=== PATIENT | female | born 1995 | race Two or more races ===

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

== ENCOUNTER 2017-05-17 19:58 | Emergency (ER) | payer OTHER ==
[2017-05-17] MEDS: BENZONATATE 100 MG CAP PO (20:45)
[2017-05-17] MEDS: NAPROXEN 250 MG TAB PO (20:45)
[2017-05-17] MEDS: ALBUTEROL SULFATE 2.5 MG/0.5 ML INH NEB SOLN NEB (21:12)
[2017-05-17 21:22] LABS: INFLUENZA A AMPLIFICATION POSITIVE (NEGATIVE); INFLUENZA B AMPLIFICATION NEGATIVE (NEGATIVE); RSV AMPLIFICATION NEGATIVE (NEGATIVE)
[2017-05-17] MEDS: MAGIC MOUTHWASH SUSPENSION BTL SS (21:28)
[2017-05-17] MEDS: dexameTHASONE 4 MG/ML 1ML VIAL (J1100) PO (22:00)
[2017-05-17] MEDS: OSELTAMIVIR PHOSPHATE 75 MG CAP (TAMIFLU) PO (22:00)
== END 2017-05-17 22:04 | disposition home or self-care (01) ==
LOC: M ED 19:58
DX: J09.X2 Influenza due to identified novel influenza A virus with other respiratory manifestations (principal)
CPT/HCPCS: J1100

== ENCOUNTER 2018-02-10 03:20 | Emergency (ER) | payer OTHER ==
[2018-02-10] MEDS: LACTULOSE 20 GM/30 ML SYRUP UD PO (04:22)
[2018-02-10 04:26] LABS: BASO % 0.2 % (0.0-1.0); EOS # 0.1 10^3/uL (0.0-0.50); EOS % 0.6 % (0.0-3.0); HEMATOCRIT 33.7 % (36.0-47.0); HEMOGLOBIN 10.9 g/dl (12.0-15.5); IMMATURE GRANULOCYTE % 0.2 % (0-3.0); LYMPH # 3.6 10^3/uL (1.5-6.5); LYMPH % 37.5 % (24.0-44.0); MEAN CORPUSCULAR HEMOGLOBIN 28.3 pg (27.0-33.0); MEAN CORPUSCULAR HGB CONC 32.3 g/dl (32.0-36.5); MEAN CORPUSCULAR VOLUME 87.5 fl (80.0-96.0); MONO # 0.7 10^3/uL (0.0-0.8); MONO % 6.9 % (0.0-5.0); NEUTROPHILS # 5.3 10^3/uL (1.8-7.7); NEUTROPHILS % 54.6 % (36.0-66.0); PLATELET COUNT, AUTOMATED 361 10^3/uL (150-450); RED BLOOD COUNT 3.85 10^6/uL (4.00-5.40); RED CELL DISTRIBUTION WIDTH 11.9 % (11.5-14.5); WHITE BLOOD COUNT 9.7 10^3/uL (4.0-10.0)
[2018-02-10] MEDS: GASTROGRAFIN SOLUTION 30ML PO ×2 (04:32→04:38)
[2018-02-10 04:49] LABS: CONTROL LINE HCG INT CTR LINE PRESENT; HCG, SERUM QUALITATIVE NEGATIVE (NEGATIVE)
[2018-02-10 04:51] LABS: ALBUMIN 3.9 GM/DL (3.2-5.2); ALBUMIN/GLOBULIN RATIO 1.11 (1.00-1.93); ALKALINE PHOSPHATASE 58 U/L (45-117); ALT/SGPT 18 U/L (12-78); ANION GAP 7 MEQ/L (8-16); AST/SGOT 11 U/L (7-37); BILIRUBIN,DIRECT < 0.1 MG/DL (0.0-0.2); BILIRUBIN,TOTAL 0.2 MG/DL (0.2-1.0); BLOOD UREA NITROGEN 12 MG/DL (7-18); CALCIUM LEVEL 8.7 MG/DL (8.5-10.1); CARBON DIOXIDE LEVEL 25 MEQ/L (21-32); CHLORIDE LEVEL 105 MEQ/L (98-107); CREATININE FOR GFR 0.84 MG/DL (0.55-1.30); GLUCOSE, FASTING 95 MG/DL (70-100); LIPASE 195 U/L (73-393); POTASSIUM SERUM 3.9 MEQ/L (3.5-5.1); SODIUM LEVEL 137 MEQ/L (136-145); TOTAL PROTEIN 7.4 GM/DL (6.4-8.2)
[2018-02-10] MEDS ORDERED: ISOVUE-370 76% 100ML VIAL (Q9967) As Ordered (05:40)
== END 2018-02-10 06:40 | disposition home or self-care (01) ==
LOC: M ED 03:20
DX: K59.00 Constipation, unspecified (principal)
CPT/HCPCS: Q9963

== ENCOUNTER 2018-07-14 02:38 | Emergency (ER) | payer OTHER ==
[~2018-07-14] VITALS: Ht 154.9 cm; Wt 58.5 kg
[~2018-07-14 02:38] MED LIST: MAGICMW MT; OSEL75CA PO; PROAAER10 INH; TESS100C PO
[2018-07-14 03:01] LABS: URINE PREG TEST NEGATIVE (NEGATIVE)
[2018-07-14 03:39] LABS: BASO % 0.3 % (0.0-1.0); EOS # 0.1 10^3/uL (0.0-0.50); EOS % 1.2 % (0.0-3.0); HEMATOCRIT 36.1 % (36.0-47.0); HEMOGLOBIN 11.4 g/dl (12.0-15.5); LYMPH # 4.1 10^3/uL (1.5-6.5); LYMPH % 43.6 % (24.0-44.0); MEAN CORPUSCULAR HEMOGLOBIN 28.1 pg (27.0-33.0); MEAN CORPUSCULAR HGB CONC 31.6 g/dl (32.0-36.5); MEAN CORPUSCULAR VOLUME 89.1 fl (80.0-96.0); MONO # 0.5 10^3/uL (0.0-0.8); MONO % 5.7 % (0.0-5.0); NEUTROPHILS # 4.6 10^3/uL (1.8-7.7); PLATELET COUNT, AUTOMATED 426 10^3/uL (150-450); RED BLOOD COUNT 4.05 10^6/uL (4.00-5.40); WHITE BLOOD COUNT 9.5 10^3/uL (4.0-10.0)
[2018-07-14 04:00] LABS: ALBUMIN 3.9 GM/DL (3.2-5.2); ALT/SGPT 15 U/L (12-78); BILIRUBIN,DIRECT < 0.1 MG/DL (0.0-0.2); BILIRUBIN,TOTAL 0.2 MG/DL (0.2-1.0); BLOOD UREA NITROGEN 10 MG/DL (7-18); CALCIUM LEVEL 8.6 MG/DL (8.5-10.1); CARBON DIOXIDE LEVEL 25 MEQ/L (21-32); CHLORIDE LEVEL 106 MEQ/L (98-107); CREATININE FOR GFR 0.77 MG/DL (0.55-1.30); GLUCOSE, FASTING 95 MG/DL (70-100); LIPASE 218 U/L (73-393); POTASSIUM SERUM 3.8 MEQ/L (3.5-5.1); SODIUM LEVEL 139 MEQ/L (136-145)
--- NOTE | 2018-07-14 05:10 | REPVR ---
EXAM: CT Abdomen and Pelvis Without Contrast EXAM DATE/TIME: 07/14/2018 3:46 AM CLINICAL HISTORY: 22 years old, female; Abdominal pain; Localized; Right lower quadrant (rlq); Additional info: Rlq pain TECHNIQUE: Imaging protocol: Axial computed tomography images of the abdomen and pelvis without contrast. Coronal and sagittal reformatted images were created and reviewed. Radiation optimization: All CT scans at this facility use at least one of these dose optimization techniques: automated exposure control; mA and/or kV adjustment per patient size (includes targeted exams where dose is matched to clinical indication); or iterative reconstruction. COMPARISON: CT ABD/PEL W/IV ORAL CONTRAS 02/10/2018 5:39 AM FINDINGS: ABDOMEN: Liver: Normal. No mass. Gallbladder and bile ducts: The gallbladder is contracted with no stones. Pancreas: Normal. No ductal dilation. Spleen: Normal. No splenomegaly. Adrenals: Normal. No mass. Kidneys and ureters: Normal. No hydronephrosis. Stomach and bowel: Normal. No obstruction. No mucosal thickening. Appendix: A normal appendix is seen. PELVIS: Bladder: Unremarkable as visualized. Reproductive: Unremarkable as visualized. ABDOMEN and PELVIS: Intraperitoneal space: Minimal fluid in the cul-de-sac which with a Hounsfield measurement of 13 which is upper normal for physiologic amount. Bones/joints: No acute fracture. No dislocation. Soft tissues: Unremarkable. Vasculature: Normal. No abdominal aortic aneurysm. Lymph nodes: Normal. No enlarged lymph nodes. IMPRESSION: 1. Minimal fluid in the cul-de-sac which is upper normal for physiologic amount. 2. Otherwise negative CT abdomen/pelvis. A normal appendix is seen. Electronically signed by: Mello Wick On 07/14/2018 05:09:42 AM
[2018-07-14 05:11] LABS: CHLAMYDIA DNA AMPLIFICATION NEGATIVE (NEGATIVE); GC DNA AMPLIFICATION NEGATIVE (NEGATIVE)
[2018-07-14 05:58] VITALS: BP 125/80
== END 2018-07-14 06:01 | disposition home or self-care (01) ==
LOC: M ED 02:38
DX: R10.9 Unspecified abdominal pain (principal)

== ENCOUNTER 2018-10-26 14:00 | Emergency (ER) | payer OTHER ==
[~2018-10-26] VITALS: Ht 154.9 cm; Wt 58.8 kg
[2018-10-26 14:01] VITALS: BP 119/76
[2018-10-26] MEDS ORDERED: SUMA100T2 (14:09)
--- NOTE | 2018-10-26 15:18 | REP ---
CHEST, TWO VIEWS: There is no evidence of acute infiltrate. No pleural effusion is seen. The heart is normal in size. The mediastinal silhouette is unremarkable. The visualized osseous structures are intact. IMPRESSION: No acute pulmonary disease. Electronically Signed by Angel Diego MD 10/27/2018 12:11 A
== END 2018-10-26 17:18 | disposition home or self-care (01) ==
LOC: M ED 14:00
DX: J70.5 Respiratory conditions due to smoke inhalation (principal); Z79.899 Other long term (current) drug therapy

== ENCOUNTER 2020-10-06 19:40 | Emergency (ER) | payer OTHER ==
[~2020-10-06] VITALS: Ht 154.9 cm; Wt 58.9 kg
[~2020-10-06 19:40] MED LIST changes: +SUMA100T2
[2020-10-06 20:33] LABS: BASO # 0.1 10^3/uL (0.0-0.2); BASO % 0.5 % (0.0-1.0); EOS # 0.1 10^3/uL (0.0-0.5); EOS % 0.6 % (0.0-3.0); HEMATOCRIT 35.3 % (36.0-47.0); HEMOGLOBIN 11.2 g/dl (12.0-15.5); LYMPH # 3.1 10^3/uL (1.5-5.0); LYMPH % 33.4 % (24.0-44.0); MEAN CORPUSCULAR HEMOGLOBIN 27.8 pg (27.0-33.0); MEAN CORPUSCULAR HGB CONC 31.7 g/dl (32.0-36.5); MEAN CORPUSCULAR VOLUME 87.6 fl (80.0-96.0); MONO # 0.6 10^3/uL (0.0-0.8); MONO % 6.4 % (2.0-8.0); NEUTROPHILS # 5.5 10^3/uL (1.5-8.5); NEUTROPHILS % 58.9 % (36.0-66.0); PLATELET COUNT, AUTOMATED 412 10^3/uL (150-450); RED BLOOD COUNT 4.03 10^6/uL (4.00-5.40); WHITE BLOOD COUNT 9.3 10^3/uL (4.0-10.0)
[2020-10-06] MEDS ORDERED: ACETAMINOPHEN 500 MG TAB PO ONE (21:00)
[2020-10-06 21:03] LABS: BLOOD UREA NITROGEN 12 MG/DL (7-18); CARBON DIOXIDE LEVEL 28 MEQ/L (21-32); CHLORIDE LEVEL 105 MEQ/L (98-107); CREATININE FOR GFR 0.68 MG/DL (0.55-1.30); GLOMERULAR FILTRATION RATE > 60.0 (>60); GLUCOSE, FASTING 99 MG/DL (70-100); HCG, SERUM QUANTITATIVE 539 MIU/ML; POTASSIUM SERUM 4.3 MEQ/L (3.5-5.1); SODIUM LEVEL 138 MEQ/L (136-145)
[2020-10-06 21:54] LABS: APPEARANCE, URINE HAZY (CLEAR); BACTERIA, URINE AUTO NEGATIVE (NEGATIVE); BILIRUBIN, URINE AUTO NEGATIVE (NEGATIVE); BLOOD, URINE BLOOD 1+ (NEGATIVE); COLOR, URINE YELLOW (YELLOW); GLUCOSE, URINE (UA) AUTO NEGATIVE (NEGATIVE); KETONE, URINE AUTO NEGATIVE (NEGATIVE); LEUKOCYTE ESTERASE, URINE AUTO NEGATIVE (NEGATIVE); NITRITE, URINE AUTO NEGATIVE (NEGATIVE); PROTEIN, URINE AUTO NEGATIVE (NEGATIVE); RBC, URINE AUTO 4 /HPF (0-3); SPECIFIC GRAVITY URINE AUTO 1.016 (1.002-1.035); SQUAMOUS EPITHELIAL CELL UR AU 0 /HPF (0-6); UROBILINOGEN, URINE AUTO 0.2 mg/dL (0.0-2.0); WBC, URINE AUTO 0 /HPF (0-3)
--- NOTE | 2020-10-06 22:12 | REPVR ---
PROCEDURE INFORMATION: Exam: US First Trimester, Transabdominal Exam date and time: 10/06/2020 9:35 PM Age: 25 years old Clinical indication: complicated by abdominal or pelvic pain; Right lower quadrant; First trimester; Gestational age or lmp: 09/04/20; ; Patient HX: Addy Pimentel; Additional info: Rlq pain, 5wks preg, R/O ectopic TECHNIQUE: Imaging protocol: Real-time transabdominal obstetrical ultrasound of the maternal pelvis and a first trimester , less than 14 weeks 0 days, with image documentation. COMPARISON: No relevant prior studies available. FINDINGS: Gestation: Not demonstrated Embryonic/ heart rate: Not demonstrated BIOMETRY: Gestational age (AUA): 4 weeks 4 days based on LMP of 09/04/2020 MATERNAL: Uterus: Uterus measures 7.3 x 5.9 x 3.8 cm. Cervix: Unremarkable. Right adnexa: Right ovary measures 2.8 x 1.5 x 1.5 cm. Normal flow. Left adnexa: Left ovary measures 3.4 x 2.6 x 2.5 cm. Normal flow. Corpus luteal cyst measures 2 x 1.7 x 2.1 cm. Intraperitoneal space: Minimal fluid in the cul-de-sac. IMPRESSION: Empty uterus in a patient who is reportedly . Findings may indicate very early IUP prior to visualization of a gestational sac or fetus. Correlation with serial beta-hCG levels and follow ultrasound recommended in order to exclude ectopic verses very early or early failure. Electronically signed by: Ernie Calderon On 10/06/2020 22:12:25 PM
[2020-10-06 23:58] VITALS: BP 129/65
== END 2020-10-07 00:03 | disposition home or self-care (01) ==
LOC: M ED 19:40
DX: O99.891 Other specified diseases and conditions complicating pregnancy (principal); M25.512 Pain in left shoulder; M79.651 Pain in right thigh; Z3A.01 Less than 8 weeks gestation of pregnancy

== ENCOUNTER → 2020-10-09 | Outpatient (CLI) | payer OTHER | LOC: M LAB 12:00 | PROVIDERS: ATTEND Physician Assistant | DX: O99.891 Other specified diseases and conditions complicating pregnancy (principal); R10.9 Unspecified abdominal pain ==

== ENCOUNTER → 2020-10-11 | Outpatient (CLI) | payer OTHER ==
--- NOTE | 2020-10-11 16:12 | REP ---
INDICATION: RT LOWER QUAD ABD PAIN (+) PREG ? ECTOPIC IUG. COMPARISON: 10/06/2020. TECHNIQUE: Multiple ultrasonographic images of the pelvis FINDINGS: The bladder is adequately distended. There is an intrauterine gestational sac in the uterine fundus. There is no identifiable pole at this time. The gestational sac measures 4.9 by 4.2 x 7.0 mm Average mean sac diameter is 5.4 mm. This corresponds to a gestational age of 5 weeks 2 days. There is no subchorionic hematoma. Right ovary: The right ovary measures 2.5 x 1.5 x 1.5 cm and is normal size. There is no dominant mass or cyst. Left ovary: The left ovary measures 4.3 x 2.5 x 3.2 cm and is normal size. There is a complex left ovarian cyst measuring 2.7 x 2.1 x 2.5 cm, likely a corpus luteum. The quantitative hCG on 10/06/2020 was reportedly 539 units. The quantitative hCG on 10/09/2020 was 2237 units. IMPRESSION: Intrauterine gestational sac without pole at this time, as discussed above. Complex 2.7 cm left ovarian cyst, likely a corpus luteum. Follow-up is recommended to confirm these findings. <Electronically signed by Angel Ornelas > 10/11/20 [id number]
== END ==
LOC: M RAD 14:54
PROVIDERS: ATTEND Family Medicine
DX: O26.891 Other specified pregnancy related conditions, first trimester (principal); R10.31 Right lower quadrant pain; N83.202 Unspecified ovarian cyst, left side; Z3A.01 Less than 8 weeks gestation of pregnancy; O34.81 Maternal care for other abnormalities of pelvic organs, first trimester

== ENCOUNTER 2020-10-29 09:28 | Emergency (ER) | payer OTHER ==
[~2020-10-29] VITALS: Ht 154.9 cm; Wt 58.5 kg
[2020-10-29] MEDS ORDERED: MULTTAB20 PO (09:38)
[2020-10-29 10:38] LABS: BASO % 0.4 % (0.0-1.0); EOS % 0.4 % (0.0-3.0); HEMATOCRIT 31.5 % (36.0-47.0); HEMOGLOBIN 10.2 g/dl (12.0-15.5); LYMPH # 2.2 10^3/uL (1.5-5.0); LYMPH % 29.4 % (24.0-44.0); MEAN CORPUSCULAR HGB CONC 32.4 g/dl (32.0-36.5); MEAN CORPUSCULAR VOLUME 86.5 fl (80.0-96.0); MONO # 0.5 10^3/uL (0.0-0.8); MONO % 6.9 % (2.0-8.0); NEUTROPHILS # 4.7 10^3/uL (1.5-8.5); NEUTROPHILS % 62.5 % (36.0-66.0); PLATELET COUNT, AUTOMATED 326 10^3/uL (150-450); RED BLOOD COUNT 3.64 10^6/uL (4.00-5.40); WHITE BLOOD COUNT 7.5 10^3/uL (4.0-10.0)
[2020-10-29 10:44] LABS: APPEARANCE, URINE CLEAR (CLEAR); BACTERIA, URINE AUTO NEGATIVE (NEGATIVE); BILIRUBIN, URINE AUTO NEGATIVE (NEGATIVE); BLOOD, URINE BLOOD NEGATIVE (NEGATIVE); COLOR, URINE YELLOW (YELLOW); GLUCOSE, URINE (UA) AUTO NEGATIVE (NEGATIVE); KETONE, URINE AUTO NEGATIVE (NEGATIVE); LEUKOCYTE ESTERASE, URINE AUTO NEGATIVE (NEGATIVE); MUCUS, URINE SMALL (NEGATIVE); NITRITE, URINE AUTO NEGATIVE (NEGATIVE); PROTEIN, URINE AUTO NEGATIVE (NEGATIVE); RBC, URINE AUTO 4 /HPF (0-3); SPECIFIC GRAVITY URINE AUTO 1.016 (1.002-1.035); SQUAMOUS EPITHELIAL CELL UR AU 1 /HPF (0-6); UROBILINOGEN, URINE AUTO 0.2 mg/dL (0.0-2.0); WBC, URINE AUTO 0 /HPF (0-3)
--- NOTE | 2020-10-29 11:01 | REP ---
INDICATION: VAGINAL BLEEDING COMPARISON: None. TECHNIQUE: Transabdominal 1st trimester obstetrical ultrasound with color Doppler evaluation FINDINGS: Single live early intrauterine is appreciated. Gestational sac with yolk sac and pole identified. Novi-rump length of 12 mm corresponds to 7 weeks 3 days gestational age with estimated date of delivery 06/14/2021. heart rate equals 138 beats per minute. No gross abnormalities are identified. Bilateral maternal ovaries demonstrate normal vascularity without torsion and 1.9 cm left corpus luteal cyst. IMPRESSION: Single live early intrauterine at 7 weeks 3 days gestational age. Complete anatomical assessment should be performed and 19-20 weeks. <Electronically signed by Marck Perez > 10/29/20 [id number]
--- NOTE | 2020-10-29 11:03 | REP ---
INDICATION: rlq pain ro appy COMPARISON: None. TECHNIQUE: Grayscale and color evaluation using linear high-frequency and curved array transducers. FINDINGS: Ultrasound examination of the right lower quadrant demonstrates no sonographic supporting evidence for acute appendicitis. Right ovary is normal in appearance and vascularity without torsion and measures 3.1 x 1.4 x 1.9 cm (RI 0.56) No visible fluid or adenopathy. IMPRESSION: Normal examination. No evidence for appendicitis. Normal right ovary. <Electronically signed by Marck Perez > 10/29/20 1954
[2020-10-29] MEDS ORDERED: NS 1,000 ML IV ONE (11:55)
[2020-10-29 11:59] LABS: GC DNA AMPLIFICATION NEGATIVE (NEGATIVE)
[2020-10-29 15:55] VITALS: BP 110/60
--- NOTE | 2020-10-29 21:59 | CR ---
CONSULTATION DATE: 10/29/2020 Time: Approximately 12:00 Noon REASON FOR CONSULTATION: Abdominal pain. HISTORY OF PRESENT ILLNESS: The patient is a very pleasant 25-year-old woman who presented to the Emergency Department for evaluation of some abdominal discomfort. She was recently confirmed to be and is at approximately 8 weeks gestation. She reports that approximately Thursday the 27 of October she noted the onset of some lower abdominal pain. She describes some sharp discomfort intermittently with some soreness and tenderness in the lower abdomen, particularly on the right. She has had some nausea but no vomiting. She denies any fevers or chills. She has been able to eat. She has a history of chronic constipation but reports that she did have a bowel movement on Thursday, the . The pain in the right lower abdomen is somewhat more persistent and annoying but does not prevent her normal activities. She has occasional more lancinating pains higher up in the right mid abdomen that area very intermittent. The patient underwent an evaluation in the Emergency Department with exam, labs, and an ultrasound. Dr. Diego is concerned about the possibility of acute appendicitis and requested my consultation. ALLERGIES: The patient denies any known drug allergies. MEDICATIONS: The patient's current medications include a vitamin with iron and folic acid daily. MEDICAL HISTORY: The patient's medical history is significant only for her current . She reports that she has been once before but suffered a miscarriage at approximately 4 weeks. She denies any active medical problems including heart, lung or endocrine problems. SURGICAL HISTORY: The patient's surgical history is entirely negative. FAMILY HISTORY: The patient's family history is noncontributory. REVIEW OF SYSTEMS: The patient's review of systems reveals no chest pain or palpitations. She has no cough, wheezing or sputum production. She denies any dysuria or hematuria. She has no bone or joint issues. There is no history of DVT or pulmonary embolus. She denies any history of chronic severe headaches, seizures or stroke. SOCIAL HISTORY: The patient is a nonsmoker. She denies any recreational drug use. PHYSICAL EXAMINATION: GENERAL APPEARANCE: A pleasant, young woman lying quietly on the E.R. stretcher. She is alert and oriented. VITAL SIGNS: Her temperature on presentation was 97.8. The most recent vital signs showed a blood pressure of 111/67 with a respiratory rate of 16. The patient is recorded as being 5 feet, one inch tall with a weight of 58 kg. SKIN: Warm and dry. HEENT: Sclerae are anicteric. NECK: Supple without mass or bruit. HEART: Regular rate and rhythm in the 60's to 70's. LUNGS: Clear to auscultation bilaterally. CHEST: She has a number of tattoos of the chest and upper extremities. ABDOMEN: Flat. There is a small scar at the upper edge of the umbilicus from prior piercing. She has bowel sounds present though they are soft. The abdomen is nondistended. There is no tympani to percussion. There is no significant tenderness to percussion. On palpation the abdomen is soft throughout. There is some very mild direct tenderness to palpation in the right lower quadrant, fairly medially. On the initial exam there was also some tenderness noted in the left suprapubic area, but this seemed less pronounced on repeat exam. There is no palpable mass. There is no rebound tenderness. There is no evidence of hernia. EXTREMITIES: Without edema. She has palpable radial and dorsalis pedis pulses bilaterally. LABORATORY STUDIES: CBC which shows a white count of 8, hemoglobin 10, hematocrit 32, and a platelet count of 326,000. Differential count shows 62% neutrophils, 29% lymphocytes, and 7% monocytes. Chemistry profile was not done but she had a quantitative hCG of 63,160. Urinalysis showed no evidence of urinary tract infection. Serology was negative for chlamydia and gonorrhea. IMAGING DATA: She had an obstetrical and pelvic ultrasound obtained. The obstetrical ultrasound was consistent with a single live intrauterine at 7 weeks, 3 days gestation. The pelvic ultrasound was interpreted as showing no sonographic evidence supporting acute appendicitis. The right ovary was normal in appearance. There was no visible fluid or adenopathy. IMPRESSION: The patient is a very pleasant 25-year-old woman who is now approximately 7-8 weeks . She has been having some lower abdominal discomfort. She has also had some nausea which she attributes to the . Today she came in with 2 days of abdominal pain which seems to be more centered in the low right lower quadrant. She does have some mild tenderness in this area, though there is no rebound or guarding. The ultrasound did not clearly identify her appendix though there were no findings of acute inflammation. RECOMMENDATIONS: My overall impression is that it is unlikely that she has acute appendicitis. Her symptoms have remained relatively mild over 48 hours since they began. She has a normal white blood cell count with a normal differential count. I suspect that her discomfort is associated with her , however in order to be absolutely certain that there is no early appendicitis in this patient with an early , I do think that an MRI of the pelvis would be prudent to insure that the appendix is normal. I would favor doing the MRI rather than a CT scan just to avoid the radiation exposure. I discussed this recommendation with Dr. Diego, who will undertake to obtain the MRI to confirm that the patient does not have appendicitis. I advised her that if the MRI shows no evidence of appendicitis that the patient could be discharged home.
== END 2020-10-29 15:56 | disposition home or self-care (01) ==
LOC: M ED 09:28
DX: O26.891 Other specified pregnancy related conditions, first trimester (principal); Z3A.01 Less than 8 weeks gestation of pregnancy; Z87.59 Personal history of other complications of pregnancy, childbirth and the puerperium

== ENCOUNTER → 2020-10-30 | Outpatient (CLI) | payer OTHER ==
[~2020-10-30] MED LIST changes: +MULTTAB20 PO
[2020-10-30 14:38] LABS: ALBUMIN 4.2 GM/DL (3.2-5.2); ALT/SGPT 19 U/L (12-78); BILIRUBIN,TOTAL 0.4 MG/DL (0.2-1.0); BLOOD UREA NITROGEN 9 MG/DL (7-18); CALCIUM LEVEL 9.3 MG/DL (8.5-10.1); CARBON DIOXIDE LEVEL 24 MEQ/L (21-32); CHLORIDE LEVEL 106 MEQ/L (98-107); CREATININE FOR GFR 0.56 MG/DL (0.55-1.30); GLOMERULAR FILTRATION RATE > 60.0 (>60); GLUCOSE, FASTING 84 MG/DL (70-100); POTASSIUM SERUM 4.6 MEQ/L (3.5-5.1); SODIUM LEVEL 136 MEQ/L (136-145); TOTAL PROTEIN 7.9 GM/DL (6.4-8.2)
== END ==
LOC: M PLALAB 11:27
PROVIDERS: ATTEND Family Medicine
DX: L29.9 Pruritus, unspecified (principal)

== ENCOUNTER → 2020-11-08 | Outpatient (CLI) | payer OTHER ==
[~2020-11-08] MED LIST changes: +IBUP80TA PO; +OXYC1TAB23 PO; +PERC5TAB12 PO
[2020-11-08 17:32] LABS: HEMATOCRIT 33.1 % (36.0-47.0); HEMOGLOBIN 10.7 g/dl (12.0-15.5); MEAN CORPUSCULAR HGB CONC 32.3 g/dl (32.0-36.5); MEAN CORPUSCULAR VOLUME 86.6 fl (80.0-96.0); PLATELET COUNT, AUTOMATED 383 10^3/uL (150-450); RED BLOOD COUNT 3.82 10^6/uL (4.00-5.40); WHITE BLOOD COUNT 10.4 10^3/uL (4.0-10.0)
== END ==
LOC: M PLALAB 15:28
PROVIDERS: ATTEND Advanced Practice Midwife
DX: O02.1 Missed abortion (principal)

== ENCOUNTER → 2020-11-19 | Outpatient (CLI) | payer OTHER ==
[~2020-11-19] MED LIST changes: -IBUP80TA PO; -PERC5TAB12 PO
== END ==
LOC: M PLALAB 13:35
PROVIDERS: ATTEND Advanced Practice Midwife
DX: O02.1 Missed abortion (principal)

== ENCOUNTER → 2020-11-26 | Outpatient (CLI) | payer OTHER | LOC: M PLALAB 09:48 | PROVIDERS: ATTEND Advanced Practice Midwife | DX: O02.1 Missed abortion (principal) ==

== ENCOUNTER → 2020-12-03 | Outpatient (CLI) | payer OTHER ==
[2020-12-03 17:17] LABS: HEMOGLOBIN 10.4 g/dl (12.0-15.5); MEAN CORPUSCULAR HEMOGLOBIN 27.8 pg (27.0-33.0); MEAN CORPUSCULAR HGB CONC 31.5 g/dl (32.0-36.5); MEAN CORPUSCULAR VOLUME 88.2 fl (80.0-96.0); PLATELET COUNT, AUTOMATED 409 10^3/uL (150-450); RED BLOOD COUNT 3.74 10^6/uL (4.00-5.40)
== END ==
LOC: M PLALAB 14:46
PROVIDERS: ATTEND Advanced Practice Midwife
DX: O02.1 Missed abortion (principal)

== ENCOUNTER → 2020-12-10 | Outpatient (CLI) | payer OTHER | LOC: M PLALAB 15:22 | PROVIDERS: ATTEND Advanced Practice Midwife | DX: O02.1 Missed abortion (principal) ==

== ENCOUNTER 2020-12-11 19:38 | Emergency (ER) | payer OTHER ==
[~2020-12-11] VITALS: Ht 154.9 cm; Wt 58.1 kg
[2020-12-11 21:54] LABS: APPEARANCE, URINE CLEAR (CLEAR); BACTERIA, URINE AUTO 1+ (NEGATIVE); BILIRUBIN, URINE AUTO NEGATIVE (NEGATIVE); BLOOD, URINE BLOOD 2+ (NEGATIVE); COLOR, URINE YELLOW (YELLOW); GLUCOSE, URINE (UA) AUTO NEGATIVE (NEGATIVE); KETONE, URINE AUTO NEGATIVE (NEGATIVE); LEUKOCYTE ESTERASE, URINE AUTO NEGATIVE (NEGATIVE); MUCUS, URINE MODERATE (NEGATIVE); NITRITE, URINE AUTO NEGATIVE (NEGATIVE); PROTEIN, URINE AUTO NEGATIVE (NEGATIVE); RBC, URINE AUTO 11 /HPF (0-3); SPECIFIC GRAVITY URINE AUTO 1.029 (1.002-1.035); SQUAMOUS EPITHELIAL CELL UR AU 1 /HPF (0-6); WBC, URINE AUTO 0 /HPF (0-3)
[2020-12-12] MEDS ORDERED: NS 1,000 ML IV ONE (06:20)
[2020-12-12 07:04] LABS: BASO % 0.5 % (0.0-1.0); EOS # 0.1 10^3/uL (0.0-0.5); EOS % 1.2 % (0.0-3.0); HEMATOCRIT 30.5 % (36.0-47.0); HEMOGLOBIN 9.6 g/dl (12.0-15.5); LYMPH # 3.4 10^3/uL (1.5-5.0); LYMPH % 51.6 % (24.0-44.0); MEAN CORPUSCULAR HEMOGLOBIN 28.2 pg (27.0-33.0); MEAN CORPUSCULAR HGB CONC 31.5 g/dl (32.0-36.5); MEAN CORPUSCULAR VOLUME 89.4 fl (80.0-96.0); MONO # 0.4 10^3/uL (0.0-0.8); MONO % 6.2 % (2.0-8.0); NEUTROPHILS # 2.7 10^3/uL (1.5-8.5); NEUTROPHILS % 40.3 % (36.0-66.0); PLATELET COUNT, AUTOMATED 317 10^3/uL (150-450); RED BLOOD COUNT 3.41 10^6/uL (4.00-5.40); WHITE BLOOD COUNT 6.6 10^3/uL (4.0-10.0)
[2020-12-12 07:27] LABS: BLOOD UREA NITROGEN 14 MG/DL (7-18); CALCIUM LEVEL 8.5 MG/DL (8.5-10.1); CARBON DIOXIDE LEVEL 25 MEQ/L (21-32); CHLORIDE LEVEL 108 MEQ/L (98-107); CREATININE FOR GFR 0.71 MG/DL (0.55-1.30); GLOMERULAR FILTRATION RATE > 60.0 (>60); GLUCOSE, FASTING 85 MG/DL (70-100); POTASSIUM SERUM 3.7 MEQ/L (3.5-5.1); SODIUM LEVEL 139 MEQ/L (136-145)
--- NOTE | 2020-12-12 08:27 | REPVR ---
PROCEDURE INFORMATION: Exam: US Pelvis Complete, Transabdominal and US Pelvis, Transvaginal and US Duplex Artery and Vein, Ovaries, Complete Exam date and time: 12/12/2020 6:51 AM Age: 25 years old Clinical indication: Lmp or gestational age (in weeks): Demise; Other: Cramping, continued bleeding; Additional info: demise, cont bleeding R/O rpoc TECHNIQUE: Imaging protocol: Real-time transabdominal and transvaginal pelvic ultrasound (complete) with image documentation. Transvaginal imaging was used for better evaluation of the endometrium, adnexa, and/or cervix. Real-time duplex ultrasound scan of the arterial and venous flow of the ovaries with B-mode, color Doppler flow and spectral waveform analysis. COMPARISON: 1ST TRIMESTER US 10/06/2020 9:18 PM FINDINGS: Uterus/cervix: Uterus measures 8.4 x 4 x 5.6 cm. Endometrial stripe is 1 cm in thickness with a 2.1 x 1.1 cm echogenic vascular focus along the uterine body segment concerning for retained products of conception. Right adnexa: Right ovary measures 4.2 x 3.4 x 3.5 cm. Normal waveforms. There is a simple right ovarian cyst measuring 2.7 x 2.3 x 2.3 cm. Left adnexa: Left ovary measures 2.7 x 2.7 x 1.7 cm. Normal waveforms. Intraperitoneal space: No intraperitoneal fluid. Urinary bladder: Normal. IMPRESSION: Findings concerning for retained products of conception as discussed above. No evidence of ovarian torsion. Electronically signed by: Timmy Fonseca On 12/12/2020 08:27:29 AM
[2020-12-12 08:31] LABS: HCG, SERUM QUANTITATIVE 1553 MIU/ML
[2020-12-12] MEDS ORDERED: KETOROLAC 30 MG/ML 1ML VIAL IV ONE (08:50)
[2020-12-12] MEDS ORDERED: PERC5TAB12 PO (09:15)
[2020-12-12] MEDS ORDERED: IBUP80TA PO (09:15)
[2020-12-12 09:40] VITALS: BP 101/61
== END 2020-12-12 09:43 | disposition home or self-care (01) ==
LOC: M ED 19:38
DX: O03.4 Incomplete spontaneous abortion without complication (principal); O36.4XX0 Maternal care for intrauterine death, not applicable or unspecified
CPT/HCPCS: 76801; 76817; 80048; 81001; 84702; 85025; 93976; 96361; 96374; 99284; J1885

== ENCOUNTER → 2020-12-19 | Outpatient (CLI) | payer OTHER ==
[~2020-12-19] MED LIST changes: +IBUP80TA PO; +PERC5TAB12 PO
== END ==
LOC: M PLALAB 14:14
PROVIDERS: ATTEND Advanced Practice Midwife
DX: O02.1 Missed abortion (principal)

== ENCOUNTER → 2020-12-25 | Outpatient (CLI) | payer OTHER | LOC: M PLALAB 12:25 | PROVIDERS: ATTEND Advanced Practice Midwife | DX: O02.1 Missed abortion (principal) ==

== ENCOUNTER 2020-12-31 08:25 | Emergency (ER) | payer OTHER ==
[~2020-12-31] VITALS: Ht 154.9 cm; Wt 57.5 kg
--- OUTSIDE RECORDS SUMMARY | 2020-12-31 08:32 | CCD ---
Author Author [facility] Organization [facility] Address Unknown Phone Unavailable Care Team Providers Care Steffen House Supervisor Name Role Phone Live Ignacio Unavailable PROBLEMS Type Condition ICD9-CM Code MCM35-GE Code Onset Dates Condition S tatus W/U Status Risk SNOMED Code Notes Problem affected by previo us bariatric surgery, currently in second trimester O99.842 Active confirmed 822092658525165 Problem Constipation, unspecified constipation type K59.00 Active confirmed 97516597 Problem Migraine without aura and without status migrain osus, not intractable G43.009 Active confirmed 568538097 Problem Infertility, female N97.9 Active confirmed 9126892 Problem Slow transit constipation K59.01 Active confirmed 75907583 Problem Supervision of other normal Z34.80 Ac tive confirm [id number] ALLERGIES No Known Allergies ENCOUNTERS from 1997 to 2020-12-24 Encounter Location Date Provider Diagnosis [facility] [address] [facility] [phone] [place] [address] Nov, Live Ignacio Incomplete O03.4 IMMUNIZATIONS No Information SOCIAL HISTORY Tobacco Use: Social History Observation Description Date Details (start date - stop date) Never Smoker Sex Assigned At : Social History Observation Description Sex Assigned At Unknown Education: Question Answer Notes Level of Education: GED Audit Question Answer Notes Total Score: 0 Interpretation: Alcohol Education Language: Question Answer Notes Languages spoken: Wolof Hinduism: Question Answer Notes Hinduism 33 None Domestic Violence: Question Answer Notes Status: Drug and Alcohol Question Answer Notes Total Score: 0 Interpretation: No problems reported Alcohol Screening: Question Answer Notes Did you have a drink containing alcohol in the past year? No Points 0 Interpretation Negative Tobacco Use: Question Answer Notes Are you a: never smoker REASON FOR REFERRAL No Information VITAL SIGNS Weight 129.8 lbs Nov, Height 61 in Nov, BMI 24.52 kg/m2 Nov, Blood pressure systolic 108 mm Hg Nov, Blood pressure diastolic 70 mm Hg Nov, MEDICATIONS Medication SIG (Take, Route, Frequency, Duration) Notes Start Da te End Date Status Enema 7-19 GM/118ML as directed Rectal before bedtime for 7 day( s) Sep, Not-Taking Percocet 5-325 MG 1 tablet as needed for pain that is 5 out of 10 Orally every 4 hours Max daily dose is 4 Oct, Not-Taking miSOPROStol 200 MCG _insert all 4 tablets vaginally at one time Oct, Not-Taking 19 - 1 tablet Orally Once a day for 30 day(s) Active Bisacodyl 5 MG 2tablet as needed Orally bid for 30 day(s) Sep, Not-Taking PROCEDURES from 1997 to 2020-12-24 Procedure Date Ordered Result Body Site Medication: 2% Lidocaine intradermal 2020-12-12 N/A RESULTS No Results REASON FOR VISIT discuss D&C MEDICAL (GENERAL) HISTORY Type Description Date Medical History Migraines without aura Medical History constipation Surgical History No know Surgical history Goals Section No Information Health Concerns No Information MEDICAL EQUIPMENT No Information MENTAL STATUS No Information FUNCTIONAL STATUS No Information ASSESSMENTS Encounter Date Diagnosis Assessment Notes Treatment Notes Treatm ent Clinical Notes Nov, Incomplete (ICD-10 - O03.4) PLAN OF TREATMENT No Information Insurance Providers Payer Name Payer Address Payer Phone Insured Name Patient Relati onship to Insured Coverage Start Date Coverage End Date [employer] DEPT [address] [place] [phone] [place] self
--- OUTSIDE RECORDS SUMMARY | 2020-12-31 08:32 | CCD ---
Author Author [facility] Organization [facility] Address Unknown Phone Unavailable Care Team Providers Care Radiologic Technology Teacher Name Role Phone Jareth Sunshine Unavailable PROBLEMS Type Condition ICD9-CM Code GMO49-HZ Code Onset Dates Condition S tatus W/U Status Risk SNOMED Code Notes Problem affected by previo us bariatric surgery, currently in second trimester O99.842 Active confirmed [id number] Problem Constipation, unspecified constipation type K59.00 Active confirmed 93058724 Problem Migraine without aura and without status migrain osus, not intractable G43.009 Active confirmed 309299637 Problem Infertility, female N97.9 Active confirmed 0696702 Problem Slow transit constipation K59.01 Active confirmed 37056950 Problem Supervision of other normal Z34.80 Ac tive confirm [id number] ALLERGIES No Known Allergies ENCOUNTERS from 1997 to 2020-11-28 Encounter Location Date Provider Diagnosis [facility] [facility] [phone] [place] [address] Oct, Sunshine [place] IMMUNIZATIONS No Information SOCIAL HISTORY Tobacco Use: Social History Observation Description Date Details (start date - stop date) Never Smoker Sex Assigned At : Social History Observation Description Sex Assigned At Unknown Education: Question Answer Notes Level of Education: GED Audit Question Answer Notes Total Score: 0 Interpretation: Alcohol Education Language: Question Answer Notes Languages spoken: Portuguese Sikhism: Question Answer Notes Sikhism 33 None Domestic Violence: Question Answer Notes Status: Sexual Hx: Question Answer Notes Had sex in the last 12 months (vaginal, oral, or anal)? Yes LMP: 04/03/2017 Have you ever had an STD? Yes Prevention Strategies discussed: Other with Men only Use protection? Yes Other? No Herpes? No Syphilis? No GC? Yes Chlamydia? No How often? All of the time Drug and Alcohol Question Answer Notes Total Score: 0 Interpretation: No problems reported Alcohol Screening: Question Answer Notes Did you have a drink containing alcohol in the past year? No Points 0 Interpretation Negative Tobacco Use: Question Answer Notes Are you a: never smoker REASON FOR REFERRAL No Information VITAL SIGNS No information MEDICATIONS Medication SIG (Take, Route, Frequency, Duration) Notes Start Da te End Date Status Enema 7-19 GM/118ML as directed Rectal before bedtime for 7 day( s) Sep, Not-Taking miSOPROStol 200 MCG _insert all 4 tablets vaginally at one time Oct, Not-Taking 19 - 1 tablet Orally Once a day for 30 day(s) Active Bisacodyl 5 MG 2tablet as needed Orally bid for 30 day(s) Sep, Not-Taking Percocet 5-325 MG 1 tablet as needed for pain that is 5 out of 10 Orally every 4 hours Max daily dose is 4 Oct, Not-Taking PROCEDURES No Information RESULTS No Results REASON FOR VISIT f/u miscarriage MEDICAL (GENERAL) HISTORY Type Description Date Medical History Migraines without aura Medical History constipation Surgical History No know Surgical history Goals Section No Information Health Concerns No Information MEDICAL EQUIPMENT No Information MENTAL STATUS No Information FUNCTIONAL STATUS No Information ASSESSMENTS No Information PLAN OF TREATMENT No Information Insurance Providers Payer Name Payer Address Payer Phone Insured Name Patient Relati onship to Insured Coverage Start Date Coverage End Date [facility] [employer] DEPT [address] [place] [phone] [place] self
--- OUTSIDE RECORDS SUMMARY | 2020-12-31 08:32 | CCD ---
Author Author [facility] Organization [facility] Address Unknown Phone Unavailable Care Team Providers Care Cigarette Tester Name Role Phone Sadie mAin Unavailable PROBLEMS Type Condition ICD9-CM Code [id number] Code Onset Dates Condition S tatus W/U Status Risk SNOMED Code Notes Problem affected by previo us bariatric surgery, currently in second trimester O99.842 Active confirmed 294674255058867 Problem Constipation, unspecified constipation type K59.00 Active confirmed 43022059 Problem Migraine without aura and without status migrain osus, not intractable G43.009 Active confirmed 334126184 Problem Infertility, female N97.9 Active confirmed 0522592 Problem Slow transit constipation K59.01 Active confirmed 61028732 Problem Supervision of other normal Z34.80 Ac tive confirm 865944675 ALLERGIES No Known Allergies ENCOUNTERS from 1997 to 2020-12-06 Encounter Location Date Provider Diagnosis [facility] [address] [facility] [phone] [place] [address] Nov, Sadie Brennan IMMUNIZATIONS No Information SOCIAL HISTORY Tobacco Use: Social History Observation Description Date Details (start date - stop date) Never Smoker Sex Assigned At : Social History Observation Description Sex Assigned At Unknown Education: Question Answer Notes Level of Education: GED Audit Question Answer Notes Total Score: 0 Interpretation: Alcohol Education Language: Question Answer Notes Languages spoken: French Caodaism: Question Answer Notes Caodaism 33 None Domestic Violence: Question Answer Notes [...] Information RESULTS No Results REASON FOR VISIT Re:response MEDICAL (GENERAL) HISTORY Type Description Date Medical [...] Insured Coverage Start Date Coverage End Date [facility] [employer] CLAIM[employer] DEPT [address] [place] [phone] [place] self
--- OUTSIDE RECORDS SUMMARY | 2020-12-31 08:32 | CCD ---
Author Author [facility] Organization [facility] Address Unknown Phone Unavailable Care Team Providers Care Kitchen Cleaner Name Role Phone Sunshine Templeton Unavailable PROBLEMS Type Condition ICD9-CM Code YRR83-GD Code Onset Dates Condition S tatus W/U Status Risk SNOMED Code Notes Problem affected by previo us bariatric surgery, currently in second trimester O99.842 Active confirmed [id number] Problem Constipation, unspecified constipation type K59.00 Active confirmed 63593788 Problem Migraine without aura and without status migrain osus, not intractable G43.009 Active confirmed 785680880 Problem Infertility, female N97.9 Active confirmed 4713298 Problem Slow transit constipation K59.01 Active confirmed 19095795 Problem Supervision of other normal Z34.80 Ac tive confirm [id number] ALLERGIES No Known Allergies ENCOUNTERS from 1997 to 2020-11-26 Encounter Location Date Provider Diagnosis [facility] [address] [facility] [phone] [place] [address] Oct, Sunshine Jareth Missed O02. 1 IMMUNIZATIONS No Information SOCIAL HISTORY Tobacco Use: Social History Observation Description Date Details (start date - stop date) Never Smoker Sex Assigned At : Social History Observation Description Sex Assigned At Unknown Education: Question Answer Notes Level of Education: GED Audit Question Answer Notes Total Score: 0 Interpretation: Alcohol Education Language: Question Answer Notes Languages spoken: Danish Buddhism: Question Answer Notes Buddhism 33 None Domestic Violence: Question Answer Notes [...] FOR REFERRAL No Information VITAL SIGNS Weight 127.6 lbs Oct, Height 61 in Oct, BMI 24.11 kg/m2 Oct, Blood pressure systolic 118 mm Hg Oct, Blood pressure diastolic 74 mm Hg Oct, MEDICATIONS Medication SIG (Take, Route, Frequency, Duration) [...] 4 Oct, Not-Taking PROCEDURES No Information RESULTS Component Value Reference Range Type and Screen (D Rh Antibody Screen) Reviewed date:11/09/2020 12:49:40 Interpretation: Performing Lab:[facility] LABORAT[facility] [address] [place] [address] , ,[place] [address] BLOOD TYPE B POSITIVE AB SCREEN (INDIRECT ADRIAN)VIS NEGATIVE CBC - Complete Blood Count Reviewed date:11/09/2020 12:49:29 Interpretation: Performing Lab:[facility] [address] [place] [address] , ,[place] [address] WHITE BLOOD COUNT 10.4 4.0-10.0 RED BLOOD COUNT 3.82 4.00-5.40 HEMOGLOBIN 10.7 12.0-15.5 HEMATOCRIT 33.1 36.0-47.0 MEAN CORPUSCULAR VOLUME 86.6 80.0-96.0 MEAN CORPUSCULAR HEMOGLOBIN 28.0 27.0-33.0 MEAN CORPUSCULAR HGB CONC 32.3 32.0-36.5 RED CELL DISTRIBUTION WIDTH 12.2 11.5-14.5 PLATELET COUNT, AUTOMATED 383 150-450 HCG, SERUM QUANTITATIVE Reviewed date:11/09/2020 12:49:36 Interpretation: Performing Lab:[facility], [facility] [address] [facility] [address] , ,[place] [address] HCG, SERUM QUANTITATIVE [id number] Type and Screen Prenatal1 Reviewed date:11/26/2020 16:17:51 Interpretation: Performing Lab:[facility], [facility] [address] [facility] [address] , ,[place] [address] AB SCREEN PNP1 GEL (VIS) NEGATIVE REASON FOR VISIT 1ST PN MEDICAL (GENERAL) HISTORY Type Description Date Medical History Migraines without aura Medical History constipation Surgical History No know Surgical history Goals Section No Information Health Concerns No Information MEDICAL EQUIPMENT No Information MENTAL STATUS No Information FUNCTIONAL STATUS No Information ASSESSMENTS Encounter Date Diagnosis Assessment Notes Treatment Notes Treatm ent Clinical Notes Oct, Missed (ICD-10 - O02.1) Reviewed potential reasons for miscarriage including greater than 50% being chromosomal abnormalities. Other reasons include maternal disease and uterine structural issues. Options reviewed with patient including expectant management, medical management and surgical management. Reviewed given gestational size I would not sugggest medical management due to severity of cramping and 85% completion. Reviewed risks and benefits of each option with patient. She is to go home and process this with her and call with an answer of decision on how she would like to proceed. Reviewed danger signs including fever and excessive bleeding. Reviewed option for [facility] to send components gor genetic testing as this is her second loss. PLAN OF TREATMENT Treatment Notes Assessment Notes Clinical Notes Missed Reviewed potential reasons f or miscarriage including greater than 50% being chromosomal abnormalities. Other reasons include maternal disease and uterine structural issues.Options reviewed with patient including expectant management, medical management and surgical management. Reviewed given gestational size I would not sugggest medical management due to severity of cramping and 85% completion. Reviewed risks and benefits of each option with patient. She is to go home and process this with her and call with an answer of decision on how she would like to proceed.Reviewed danger signs includ ing fever and excessive bleeding.Reviewed option for [facility] to send components gor genetic testing as this is her second loss. Insurance Providers Payer Name Payer Address Payer Phone Insured Name Patient Relati onship to Insured Coverage Start Date Coverage End Date [facility] [employer] CLAIMS DEPT [address] [facility] [phone] [place] self
--- OUTSIDE RECORDS SUMMARY | 2020-12-31 08:32 | CCD ---
Author Author [facility] em[facility] Organization [facility]st ems Address Unknown Phone Unavailable Care Team Providers Care Farmworker Grain Name Role Phone Sunshine Templeton Unavailable PROBLEMS Type Condition ICD9-CM Code TMN41-MZ Code Onset Dates Condition S tatus W/U Status Risk SNOMED Code Notes Problem affected by previo us bariatric surgery, currently in second trimester O99.842 Active confirmed 175882092410025 Problem Constipation, unspecified constipation type K59.00 Active confirmed 07837800 Problem Migraine without aura and without status migrain osus, not intractable G43.009 Active confirmed 432149969 Problem Infertility, female N97.9 Active confirmed 5589577 Problem Slow transit constipation K59.01 Active confirmed 26390041 Problem Supervision of other normal Z34.80 Ac tive confirm [id number] ALLERGIES No Known Allergies ENCOUNTERS from 1997 to 2020-12-06 Encounter Location Date Provider Diagnosis [facility] [address] [facility] [phone] [place] [address] Oct, Sunshine Jareth Missed O02. 1 IMMUNIZATIONS No Information SOCIAL HISTORY Tobacco Use: Social History Observation Description Date Details (start date - stop date) Never Smoker Sex Assigned At : Social History Observation Description Sex Assigned At Unknown Education: Question Answer Notes Level of Education: GED Audit Question Answer Notes Total Score: 0 Interpretation: Alcohol Education Language: Question Answer Notes Languages spoken: Sinhala Sabianism: Question Answer Notes Sabianism 33 None Domestic Violence: Question Answer Notes [...] FOR REFERRAL No Information VITAL SIGNS Weight 127.2 lbs Oct, Height 61 in Oct, BMI 24.03 kg/m2 Oct, Blood pressure systolic 114 mm Hg Oct, Blood pressure diastolic 68 mm Hg Oct, MEDICATIONS Medication SIG (Take, [...] No Information RESULTS Component Value Reference Range HCG, SERUM QUANTITATIVE Reviewed date:11/20/2020 14:15:47 Interpretation: Performing Lab:[facility], [facility] [address] [place] [id number] , ,[facility] HCG, SERUM QUANTITATIVE 5485 REASON FOR VISIT Sono MEDICAL (GENERAL) HISTORY Type Description Date Medical History Migraines without aura Medical History constipation Surgical History No know Surgical history Goals Section No Information Health Concerns No Information MEDICAL EQUIPMENT No Information MENTAL STATUS No Information FUNCTIONAL STATUS No Information ASSESSMENTS Encounter Date Diagnosis Assessment Notes Treatment Notes Treatm ent Clinical Notes Oct, Missed (ICD-10 - O02.1) Continue to follow hcg quants down until they are less than 10. At that time I will order her TSH labs and anticardiolipin labs due to this now being her second miscarriage. Reviewed that once her levels are down she doesn't have to wait to try and get . Encouraged ASA 81 mg daily once they attempt trying for again. She should continue to take PNV daily. PLAN OF TREATMENT Treatment Notes Assessment Notes Clinical Notes Missed Continue to follow hcg quant s down until they are less than 10. At that time I will order her TSH labs and anticardiolipin labs due to this now being her second miscarriage. Reviewed that once her levels are down she doesn't have to wait to try and get . Encouraged ASA 81 mg daily once they attempt trying for again. She should continue to take PNV daily. Insurance Providers Payer Name Payer Address Payer Phone Insured Name Patient Relati onship to Insured Coverage Start Date Coverage End Date [facility] [employer] CLAIMS DEPT [address] [facility] [phone] [place] self
--- OUTSIDE RECORDS SUMMARY | 2020-12-31 08:32 | CCD ---
Author Author [facility] Organization [facility]st em[facility] Address Unknown Phone Unavailable Care Team Providers Care Pharmacy Resource Tech Name Role Phone Jareth Sunshine Unavailable PROBLEMS Type Condition ICD9-CM Code NJX14-EW Code Onset Dates Condition S tatus W/U Status Risk SNOMED Code Notes Problem affected by previo us bariatric surgery, currently in second trimester O99.842 Active confirmed [id number] Problem Constipation, unspecified constipation type K59.00 Active confirmed 67750409 Problem Migraine without aura and without status migrain osus, not intractable G43.009 Active confirmed 313233479 Problem Infertility, female N97.9 Active confirmed 7694567 Problem Slow transit constipation K59.01 Active confirmed 31565796 Problem Supervision of other normal Z34.80 Ac tive confirm [id number] ALLERGIES No Known Allergies ENCOUNTERS from 1997 to 2020-11-20 Encounter Location Date Provider Diagnosis [facility] [facility] [phone] [place] [address] Oct, Sunshine Templeton IMMUNIZATIONS No Information SOCIAL HISTORY Tobacco Use: Social History Observation Description Date Details (start date - stop date) Never Smoker Sex Assigned At : Social History Observation Description Sex Assigned At Unknown Education: Question Answer Notes Level of Education: GED Audit Question Answer Notes Total Score: 0 Interpretation: Alcohol Education Language: Question Answer Notes Languages spoken: Ghanaian Uatsdin: Question Answer Notes Uatsdin 33 None Domestic Violence: Question Answer Notes [...] Information RESULTS No Results REASON FOR VISIT hcg levels MEDICAL (GENERAL) HISTORY Type Description Date Medical [...] [facility] [address] [place] [phone] [place] self
--- OUTSIDE RECORDS SUMMARY | 2020-12-31 08:32 | CCD ---
Author Author [facility] em[facility] Organization [facility] Address Unknown Phone Unavailable Care Team Providers Care Underwriting Consultant Name Role Phone Jareth Sunshine Unavailable PROBLEMS Type Condition ICD9-CM Code KNE89-NO Code Onset Dates Condition S tatus W/U Status Risk SNOMED Code Notes Problem affected by previo us bariatric surgery, currently in second trimester O99.842 Active confirmed 906753550391562 Problem Constipation, unspecified constipation type K59.00 Active confirmed 56632144 Problem Migraine without aura and without status migrain osus, not intractable G43.009 Active confirmed 214787729 Problem Infertility, female N97.9 Active confirmed 6815573 Problem Slow transit constipation K59.01 Active confirmed 30144938 Problem Supervision of other normal Z34.80 Ac tive confirm 073957311 ALLERGIES No Known Allergies ENCOUNTERS from 1997 to 2020-11-09 Encounter Location Date Provider Diagnosis [facility] [address] [facility] [phone] [place] [address] Oct, Sunshine Templeton IMMUNIZATIONS No Information SOCIAL HISTORY Tobacco Use: Social History Observation Description Date Details (start date - stop date) Never Smoker Sex Assigned At : Social History Observation Description Sex Assigned At Unknown Education: Question Answer Notes Level of Education: GED Audit Question Answer Notes Total Score: 0 Interpretation: Alcohol Education Language: Question Answer Notes Languages spoken: Mauritanian Catholic: Question Answer Notes Catholic 33 None Domestic Violence: Question Answer Notes [...] Notes Start Da te End Date Status miSOPROStol 200 MCG insert all 4 tablets vaginally at one time 10 Oct, 2020 Active Enema 7-19 GM/118ML as directed Rectal before bedtime for 7 day( s) Sep, Active Percocet 5-325 MG 1 tablet as needed for pain that is 5 out of 10 Orally every 4 hours Max daily dose is 4 10 Oct, 2020 Active Amitriptyline HCl 10 MG 1 tablet at bedtime Orally Once a day fo r 30 day(s) Jul, Not-Taking SUMAtriptan Succinate 50 MG 1 tablet as needed; may re peat in 2 hours if headache persists Orally Twice a day Apr, Not-Taking 19 - 1 tablet Orally Once a day for 30 day(s) Active Bisacodyl 5 MG 2tablet as needed Orally bid for 30 day(s) Sep, Active PROCEDURES No Information RESULTS No Results REASON FOR VISIT MAB MEDICAL (GENERAL) HISTORY Type Description Date Medical History Migraines without aura Medical History constipation Surgical History No know Surgical history Goals Section No Information Health Concerns No Information MEDICAL EQUIPMENT No Information MENTAL STATUS No Information FUNCTIONAL STATUS No Information ASSESSMENTS No Information PLAN OF TREATMENT Medication Medication Name Sig Start Date Stop Date Percocet 5-325 MG 1 tablet as needed for pain that is 5 out of 10 Orally every 4 hours Oct, miSOPROStol 200 MCG insert all 4 tablets vaginally at one time 1 0 Oct, 2020 Insurance Providers Payer Name Payer Address Payer Phone Insured Name Patient Relati onship to Insured Coverage Start Date Coverage End Date [facility] CORPORATE CLAIMS DEPT [place] [phone] [place] self
--- OUTSIDE RECORDS SUMMARY | 2020-12-31 08:32 | CCD ---
Author Author [facility] Organization [facility]st em[facility] Address Unknown Phone Unavailable Care Team Providers Care Track Maintainer Name Role Phone Jareth Sunshine Unavailable PROBLEMS Type Condition ICD9-CM Code UWO37-TC Code Onset Dates Condition S tatus W/U Status Risk SNOMED Code Notes Problem affected by previo us bariatric surgery, currently in second trimester O99.842 Active confirmed 887840536191504 Problem Constipation, unspecified constipation type K59.00 Active confirmed 32057150 Problem Migraine without aura and without status migrain osus, not intractable G43.009 Active confirmed 449959119 Problem Infertility, female N97.9 Active confirmed 6147813 Problem Slow transit constipation K59.01 Active confirmed 65090655 Problem Supervision of other normal Z34.80 Ac tive confirm [id number] ALLERGIES No Known Allergies ENCOUNTERS from 1997 to 2020-12-06 Encounter Location Date Provider Diagnosis [facility] [address] [facility] [phone] [place] [address] Nov, Sunshine Templeton IMMUNIZATIONS No Information SOCIAL HISTORY Tobacco Use: Social History Observation Description Date Details (start date - stop date) Never Smoker Sex Assigned At : Social History Observation Description Sex Assigned At Unknown Education: Question Answer Notes Level of Education: GED Audit Question Answer Notes Total Score: 0 Interpretation: Alcohol Education Language: Question Answer Notes Languages spoken: Moldovan Taoism: Question Answer Notes Taoism 33 None Domestic Violence: Question Answer Notes [...] Information RESULTS No Results REASON FOR VISIT Miscarriage testing MEDICAL (GENERAL) HISTORY Type Description Date Medical [...] Insured Coverage Start Date Coverage End Date [facility] CLAIMS DEPT [address] [place] [phone] [place] self
--- OUTSIDE RECORDS SUMMARY | 2020-12-31 08:32 | CCD ---
Author Author [facility]st em[facility] Organization [facility] Syst em[facility] Address Unknown Phone Unavailable Care Team Providers Care Cat Breeder Name Role Phone Sunshine Templeton Unavailable PROBLEMS Type Condition ICD9-CM Code INV40-IE Code Onset Dates Condition S tatus W/U Status Risk SNOMED Code Notes Problem affected by previo us bariatric surgery, currently in second trimester O99.842 Active confirmed [id number] Problem Constipation, unspecified constipation type K59.00 Active confirmed 24063669 Problem Migraine without aura and without status migrain osus, not intractable G43.009 Active confirmed 036923266 Problem Infertility, female N97.9 Active confirmed 3225812 Problem Slow transit constipation K59.01 Active confirmed 48624910 Problem Supervision of other normal Z34.80 Ac tive confirm 815003231 ALLERGIES No Known Allergies ENCOUNTERS from 1997 to 2020-11-28 Encounter Location Date Provider Diagnosis [facility] [address] [facility] [phone] [place] [address] Oct, Sunshine Jareth Missed O02. 1 IMMUNIZATIONS No Information SOCIAL HISTORY Tobacco Use: Social History Observation Description Date Details (start date - stop date) Never Smoker Sex Assigned At : Social History Observation Description Sex Assigned At Unknown Education: Question Answer Notes Level of Education: GED Audit Question Answer Notes Total Score: 0 Interpretation: Alcohol Education Language: Question Answer Notes Languages spoken: Armenian Buddhist: Question Answer Notes Buddhist 33 None Domestic Violence: Question Answer Notes [...] Information RESULTS No Results REASON FOR VISIT Re:RE:Miscarriage Pain/infection MEDICAL (GENERAL) HISTORY Type Description Date Medical History Migraines without aura Medical History constipation Surgical History No know Surgical history Goals Section No Information Health Concerns No Information MEDICAL EQUIPMENT No Information MENTAL STATUS No Information FUNCTIONAL STATUS No Information ASSESSMENTS Encounter Date Diagnosis Assessment Notes Treatment Notes Treatm ent Clinical Notes Oct, Missed (ICD-10 - O02.1) PLAN OF TREATMENT No Information Insurance Providers Payer Name Payer Address Payer Phone Insured Name Patient Relati onship to Insured Coverage Start Date Coverage End Date [facility]PORATE CLAIMS DEPT [address] [facility] [phone] [place] self
--- OUTSIDE RECORDS SUMMARY | 2020-12-31 08:32 | CCD ---
Author Author [facility] Syst ems Organization [facility] Syst ems Address Unknown Phone Unavailable Care Team Providers Care Tire Mold Engraver Name Role Phone Jareth Sunshine Unavailable PROBLEMS Type Condition ICD9-CM Code LYB92-RX Code Onset Dates Condition S tatus W/U Status Risk SNOMED Code Notes Problem affected by previo us bariatric surgery, currently in second trimester O99.842 Active confirmed 874940238449158 Problem Constipation, unspecified constipation type K59.00 Active confirmed 82786721 Problem Migraine without aura and without status migrain osus, not intractable G43.009 Active confirmed 371874281 Problem Infertility, female N97.9 Active confirmed 7706846 Problem Slow transit constipation K59.01 Active confirmed 93202145 Problem Supervision of other normal Z34.80 Ac tive confirm 607803150 ALLERGIES No Known Allergies ENCOUNTERS from 1997 to 2020-11-19 Encounter Location Date Provider Diagnosis [facility] [address] [facility] [phone] [place] [address] Oct, Sunshine Templeton IMMUNIZATIONS No Information SOCIAL HISTORY Tobacco Use: Social History Observation Description Date Details (start date - stop date) Never Smoker Sex Assigned At : Social History Observation Description Sex Assigned At Unknown Education: Question Answer Notes Level of Education: GED Audit Question Answer Notes Total Score: 0 Interpretation: Alcohol Education Language: Question Answer Notes Languages spoken: Papua [place] Guinean Shinto: Question Answer Notes Shinto 33 None Domestic Violence: Question Answer Notes [...] Information RESULTS No Results REASON FOR VISIT appointment 2 weeks MEDICAL (GENERAL) HISTORY Type Description Date Medical [...] Start Date Coverage End Date [facility] CLAIMS DEPT [address] [place] [phone] [place] self
--- OUTSIDE RECORDS SUMMARY | 2020-12-31 08:33 | CCD ---
Author Author [facility]st em[facility] Organization [facility]st em[facility] Address Unknown Phone Unavailable Care Team Providers Care Toppiece Cutter Name Role Phone Sadie Amin Unavailable PROBLEMS Type Condition ICD9-CM Code AGN72-EY Code Onset Dates Condition S tatus W/U Status Risk SNOMED Code Notes Problem Migraine without aura and without status migrain osus, not intractable G43.009 Active confirmed 715379984 Problem Infertility, female N97.9 Active confirmed 2876735 ALLERGIES No Known Allergies ENCOUNTERS from 1997 to 2020-10-03 Encounter Location Date Provider Diagnosis [address] [phone] [place] [address] Sep, Sadie Amin IMMUNIZATIONS No Information SOCIAL HISTORY Tobacco Use: Social History Observation Description Date Details (start date - stop date) Never Smoker Sex Assigned At : Social History Observation Description Sex Assigned At Unknown Education: Question Answer Notes Level of Education: GED Language: Question Answer Notes Languages spoken: Yi Orthodoxy: Question Answer Notes Orthodoxy 33 None Domestic Violence: Question Answer Notes Status: Sexual Hx: Question Answer Notes Had sex in the last 12 months (vaginal, oral, or anal)? Yes LMP: 04/03/2017 Have you ever had an STD? Yes Prevention Strategies discussed: Other with Men only Use protection? Yes Other? No Herpes? No Syphilis? No GC? Yes Chlamydia? No How often? All of the time Alcohol Screening: Question Answer Notes Did you have a drink containing alcohol in the past year? No Points 0 Interpretation Negative Tobacco Use: Question Answer Notes Are you a: never smoker REASON FOR REFERRAL No Information VITAL SIGNS No information MEDICATIONS Medication SIG (Take, Route, Frequency, Duration) Notes Start Da te End Date Status SUMAtriptan Succinate 50 MG 1 tablet as needed; may re peat in 2 hours if headache persists Orally Twice a day 14 Apr, 2017 Not-Taking Amitriptyline HCl 10 MG 1 tablet at bedtime Orally Once a day fo r 30 day(s) Jul, Active PROCEDURES No Information RESULTS No Results REASON FOR VISIT blood test for MEDICAL (GENERAL) HISTORY Type Description Date Medical History Migraines without aura Surgical History No know Surgical history Goals Section No Information Health Concerns No Information MEDICAL EQUIPMENT No Information MENTAL STATUS No Information FUNCTIONAL STATUS No Information ASSESSMENTS No Information PLAN OF TREATMENT Medication Medication Name Sig Start Date Stop Date Amitriptyline HCl 10 MG 1 tablet at bedtime Orally Once a da y for 30 day(s) Jul, Insurance Providers Payer Name Payer Address Payer Phone Insured Name Patient Relati onship to Insured Coverage Start Date Coverage End Date [facility] CORPORATE CLAIMS DEPT [address] [facility] [phone] [place] self
--- OUTSIDE RECORDS SUMMARY | 2020-12-31 08:33 | CCD ---
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 Name Role Phone Sadie Amin Unavailable PROBLEMS Type Condition ICD9-CM Code [id number] Code Onset Dates Condition S tatus W/U Status Risk SNOMED Code Notes Problem Migraine without aura and without status migrain osus, not intractable G43.009 Active confirmed 547946562 Problem Infertility, female N97.9 Active confirmed [id number] ALLERGIES No Known Allergies ENCOUNTERS from 1997 to 2020-10-08 Encounter Location Date Provider Diagnosis [address] [phone] [place] [address] Sep, Sadie Amin IMMUNIZATIONS No Information SOCIAL HISTORY Tobacco Use: Social History Observation Description Date Details (start date - stop date) Never Smoker Sex Assigned At : Social History Observation Description Sex Assigned At Unknown Education: Question Answer Notes Level of Education: GED Language: Question Answer Notes Languages spoken: Kinyarwanda Evangelical: Question Answer Notes Evangelical 33 None Domestic Violence: Question Answer Notes [...] persists Orally Twice a day Apr, Not-Taking Amitriptyline HCl 10 MG 1 tablet at bedtime Orally Once a day fo r 30 day(s) Jul, Active PROCEDURES No Information RESULTS No Results REASON FOR VISIT ED FU MEDICAL (GENERAL) HISTORY Type Description Date Medical [...] a da y for 30 day(s) Jul, Next Appt Details Provider Name:Jodie Hsieh [place], 2020-10-09 10:00:00 AM, [address] [place] [address], , [place], [address], Insurance Providers Payer Name Payer Address Payer Phone Insured Name Patient Relati onship to Insured Coverage Start Date Coverage End Date [facility] [employer] CLAIM[facility] DEPT [address] [facility] [phone] [place]
--- OUTSIDE RECORDS SUMMARY | 2020-12-31 08:33 | CCD ---
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 Name Role Phone Maria Esther MANDUJANO Unavailable Unavailable LETTIERE, A BAKARI PA Unavailable Unavailable LETTIERE, A BAKARI PA Unavailable Unavailable LETTIERE, A BAKARI PA Unavailable Unavailable LETTIERE, A BAKARI PA Unavailable Unavailable LETTIERE, A BAKARI PA Unavailable Unavailable LETTIERE, A BAKARI PA Unavailable Unavailable LETTIERE, A BAKARI PA Unavailable Unavailable LETTIERE, A BAKARI PA Unavailable Unavailable LETTIERE, A BAKARI PA Unavailable Unavailable LETTIERE, A BAKARI PA Unavailable Unavailable LETTIERE, A BAKARI PA Unavailable Unavailable LETTIERE, A BAKARI PA Unavailable Unavailable LETTIERE, A BAKARI PA Unavailable Unavailable LETTIERE, A BAKARI PA Unavailable Unavailable LETTIERE, A BAKARI PA Unavailable Unavailable LETTIERE, A BAKARI PA Unavailable Unavailable LETTIERE, A BAKARI PA Unavailable Unavailable LETTIERE, A BAKARI PA Unavailable Unavailable LETTIERE, A BAKARI PA Unavailable Unavailable LETTIERE, A BAKARI PA Unavailable Unavailable LETTIERE, A BAKARI PA Unavailable Unavailable LETTIERE, A BAKARI PA Unavailable Unavailable LETTIERE, A BAKARI PA Unavailable Unavailable LETTIERE, A BAKARI PA Unavailable Unavailable LETTIERE, A BAKARI PA Unavailable Unavailable LETTIERE, A BAKARI PA Unavailable Unavailable LETTIERE, A BAKARI PA Unavailable Unavailable LETTIERE, A BAKARI PA Unavailable Unavailable LETTIERE, A BAKARI PA Unavailable Unavailable LETTIERE, A BAKARI PA Unavailable Unavailable Re-disclosure Warning The records that you are about to access may contain information from federally-assisted alcohol or drug abuse programs. If such information is present, then the following federally mandated warning applies: This information has been disclosed to you from records protected by federal confidentiality rules (42 CFR part 2). The federal rules prohibit you from making any further disclosure of this information unless further disclosure is expressly permitted by the written consent of the person to whom it pertains or as otherwise permitted by 42 CFR part 2. A general authorization for the release of medical or other information is NOT sufficient for this purpose. The Federal rules restrict any use of the information to criminally investigate or prosecute any alcohol or drug abuse patient.The records that you are about to access may contain highly sensitive health information, the redisclosure of which is protected by Article 27-F of the [facility] Public Health law. If you continue you may have access to information: Regarding HIV / AIDS; Provided by facilities licensed or operated by the [facility] Office of Mental Health; or Provided by the [facility] Office for People With Developmental Disabilities. If such information is present, then the following [facility] mandated warning applies: This information has been disclosed to you from confidential records which are protected by state law. State law prohibits you from making any further disclosure of this information without the specific written consent of the person to whom it pertains, or as otherwise permitted by law. Any unauthorized further disclosure in violation of state law may result in a fine or halfway sentence or both. A general authorization for the release of medical or other information is NOT sufficient authorization for further disc losure. Encounters Encounter Providers Location Date Indications Data Source(s ) Unknown [address] [facility] [address] 12/24/2020 12:00:00 AM EDT eCW1 ([facility]) ([facility] [id number]) [facility] 15 min est obgyn specialist [address] [place] [address] 12/12/2020 12:00:00 AM EDT eCW1 ([facility]) Unknown [address] [facility] [address] 12/06/2020 12:00:00 AM EDT eCW1 ([facility]) Unknown [address] [facility] [address] 12/05/2020 12:00:00 AM EDT eCW1 ([facility]) Unknown [address] [facility] [address] 11/28/2020 12:00:00 AM EDT eCW1 ([facility]) Unknown [address] [facility] [address] 11/21/2020 12:00:00 AM EDT eCW1 ([facility]) Unknown [address] [facility] [address] 11/20/2020 12:00:00 AM EDT [facility] Outpatient [address] [facility] [address] 11/19/2020 12:00:00 AM EDT [facility]CW[facility] [place] Unknown [address] [facility] [address] 11/09/2020 12:00:00 AM EDT eCW1 ([facility]) [place] [address] [facility] [address] 11/08/2020 12:00:00 AM EDT eCW1 ([facility]) [place] [address] [facility] [address] 11/08/2020 12:00:00 AM EDT eCW1 ([facility]) [place] [address] [facility] [address] 10/30/2020 12:00:00 AM EDT eCW1 ([facility]) [place] [address] [facility] [address] 10/30/2020 12:00:00 AM EDT eCW1 ([facility]) [place] [address] [facility] [address] 10/23/2020 12:00:00 AM EDT eCW1 ([facility]) [place] [address] [facility] [address] 10/12/2020 12:00:00 AM EDT eCW1 ([facility]) [place] [address] [facility] [address] 10/12/2020 12:00:00 AM EDT eCW1 ([facility]) [place] [address] [facility] [address] 10/11/2020 12:00:00 AM EDT eCW1 ([facility]) [place] [address] [facility] [address] 10/10/2020 12:00:00 AM EDT eCW1 ([facility]) [place] [address] [facility] [address] 10/09/2020 12:00:00 AM EDT eCW1 ([facility]) [place] [address] [facility] [address] 10/08/2020 12:00:00 AM EDT eCW1 ([facility]) [place] [address] [facility] [address] 10/02/2020 12:00:00 AM EDT eCW1 ([facility]) [place] [address] [facility] [address] 10/02/2020 12:00:00 AM EDT eCW1 ([facility]) [place] [address] [facility] [address] 09/26/2020 12:00:00 AM EDT eCW1 ([facility]) [place] [address] [facility] [address] 08/09/2020 12:00:00 AM EDT eCW1 ([facility]) Outpatient Attender: BAKARI dodd 05/15/2020 03:00:00 PM EDT MEDENT ([facility], [facility]) Immunizations Vaccine Date Status Description Data Source(s) COVID-19 VACCINE Pfizer 08/24/2020 12:00:00 AM EDT completed [facility] Vaccine Series Complete: YESThis Data wa s Submitted to [facility] Via iTOK. COVID-19 VACC, MRNA([employer])/PF 08/03/2020 12:00:00 AM EDT completed [facility] COVID-19 VACCINE Pfizer 08/03/2020 12:00:00 AM EDT completed [place] Vaccine Series Complete: NOThis Data was Submitted to [facility] Via iTOK. TB Skin test is not vaccine. 05/15/2020 02:35:00 PM EDT completed MEDENT ([facility], [facility]) Medications Medication Brand Name Start Date Product Form Dose Route Admi nistrative Instructions Pharmacy Instructions Status Indications Reaction Description Data Source(s) 5-325 mg 12/12/2020 12:00:00 AM EDT tablet 10 TAKE ONE TABLET BY MOUTH EVERY 6 HOURS NEEDED FOR PAIN, MAXIMUM DAILY DOSE = 4 TABLETS TAKE ONE TABLET BY MOUTH EVERY 6 HOURS NEEDED FOR PAIN, MAXIMUM DAILY DOSE = 4 TABLETS SOLD: 12/12/2020 [facility] 800 mg 12/12/2020 12:00:00 AM EDT tablet 30 TAKE ONE TABLET BY MOUTH EVERY 8 HOURS NEEDED FOR PAIN TAKE ONE TABLET BY MOUTH EVERY 8 HOURS A S NEEDED FOR PAIN SOLD: 12/12/2020 [facility] Misoprostol 0.2 MG Oral Tablet miSOPROStol 200 MCG miSOPROSt ol 200 MCG 11/09/2020 12:00:00 AM EDT suspended miSOPROStol 200 MCG eCW1 ([facility]) Acetaminophen 325 MG / Oxycodone Hydroch loride 5 MG Oral Tablet [Percocet] Percocet 5-325 MG Percocet 5-325 MG 11/09/2020 12:00:00 AM EDT suspended Percocet 5-325 MG eCW1 ([facility]) 5-325 mg 11/09/2020 12:00:00 AM EDT tablet 4 TAKE ONE TABLET BY MOUTH EVERY 6 HOURS NEEDED FOR PAIN MAXIMUM DAILY DOSE = FOUR TABLETS TAKE ONE TABLET BY MOUTH EVERY 6 HOURS NEEDED FOR PAIN MAXIMUM DAILY DOSE = FOUR TABLETS SOLD: 11/09/2020 [facility] Misoprostol 0.2 MG Oral Tablet miSOPROStol 200 MCG miSOPROSt ol 200 MCG 11/09/2020 12:00:00 AM EDT suspended miSOPROStol 200 MCG eCW1 ([facility]) Misoprostol 0.2 MG Oral Tablet miSOPROStol 200 MCG miSOPROSt ol 200 MCG 11/09/2020 12:00:00 AM EDT suspended miSOPROStol 200 MCG eCW1 ([facility]) Acetaminophen 325 MG / Oxycodone Hydroch loride 5 MG Oral Tablet [Percocet] Percocet 5-325 MG Percocet 5-325 MG 11/09/2020 12:00:00 AM EDT suspended Percocet 5-325 MG eCW1 ([facility]) Misoprostol 0.2 MG Oral Tablet miSOPROStol 200 MCG miSOPROSt ol 200 MCG 11/09/2020 12:00:00 AM EDT suspended miSOPROStol 200 MCG eCW1 ([facility]) Acetaminophen 325 MG / Oxycodone Hydroch loride 5 MG Oral Tablet [Percocet] Percocet 5-325 MG Percocet 5-325 MG 11/09/2020 12:00:00 AM EDT suspended Percocet 5-325 MG eCW1 ([facility]) Acetaminophen 325 MG / Oxycodone Hydroch loride 5 MG Oral Tablet [Percocet] Percocet 5-325 MG Percocet 5-325 MG 11/09/2020 12:00:00 AM EDT suspended Percocet 5-325 MG eCW1 ([facility]) Misoprostol 0.2 MG Oral Tablet miSOPROStol 200 MCG miSOPROSt ol 200 MCG 11/09/2020 12:00:00 AM EDT suspended miSOPROStol 200 MCG eCW1 ([facility]) Acetaminophen 325 MG / Oxycodone Hydroch loride 5 MG Oral Tablet [Percocet] Percocet 5-325 MG Percocet 5-325 MG 11/09/2020 12:00:00 AM EDT suspended Percocet 5-325 MG eCW1 ([facility]) Acetaminophen 325 MG / Oxycodone Hydroch loride 5 MG Oral Tablet [Percocet] Percocet 5-325 MG Percocet 5-325 MG 11/09/2020 12:00:00 AM EDT active Percocet 5-325 MG eCW1 ([facility]) Misoprostol 0.2 MG Oral Tablet miSOPROStol 200 MCG miSOPROSt ol 200 MCG 11/09/2020 12:00:00 AM EDT suspended miSOPROStol 200 MCG eCW1 ([facility]) Acetaminophen 325 MG / Oxycodone Hydroch loride 5 MG Oral Tablet [Percocet] Percocet 5-325 MG Percocet 5-325 MG 11/09/2020 12:00:00 AM EDT suspended Percocet 5-325 MG eCW1 ([facility]) Acetaminophen 325 MG / Oxycodone Hydroch loride 5 MG Oral Tablet [Percocet] Percocet 5-325 MG Percocet 5-325 MG 11/09/2020 12:00:00 AM EDT suspended Percocet 5-325 MG eCW1 ([facility]) Misoprostol 0.2 MG Oral Tablet miSOPROStol 200 MCG miSOPROSt ol 200 MCG 11/09/2020 12:00:00 AM EDT suspended miSOPROStol 200 MCG eCW1 ([facility]) Misoprostol 0.2 MG Oral Tablet miSOPROStol 200 MCG miSOPROSt ol 200 MCG 11/09/2020 12:00:00 AM EDT active miSOPROStol 200 MCG eCW1 ([facility]) Misoprostol 0.2 MG Oral Tablet miSOPROStol 200 MCG miSOPROSt ol 200 MCG 11/09/2020 12:00:00 AM EDT suspended miSOPROStol 200 MCG eCW1 ([facility]) Acetaminophen 325 MG / Oxycodone Hydroch loride 5 MG Oral Tablet [Percocet] Percocet 5-325 MG Percocet 5-325 MG 11/09/2020 12:00:00 AM EDT suspended Percocet 5-325 MG eCW1 ([facility]) Acetaminophen 325 MG / Oxycodone Hydroch loride 5 MG Oral Tablet [Percocet] Percocet 5-325 MG Percocet 5-325 MG 11/09/2020 12:00:00 AM EDT suspended Percocet 5-325 MG eCW1 ([facility]) Acetaminophen 325 MG / Oxycodone Hydroch loride 5 MG Oral Tablet [Percocet] Percocet 5-325 MG Percocet 5-325 MG 11/09/2020 12:00:00 AM EDT suspended Percocet 5-325 MG eCW1 ([facility]) Misoprostol 0.2 MG Oral Tablet miSOPROStol 200 MCG miSOPROSt ol 200 MCG 11/09/2020 12:00:00 AM EDT suspended miSOPROStol 200 MCG eCW1 ([facility]) Misoprostol 0.2 MG Oral Tablet miSOPROStol 200 MCG miSOPROSt ol 200 MCG 11/09/2020 12:00:00 AM EDT suspended miSOPROStol 200 MCG eCW1 ([facility]) Mineral Oil 1000 MG/ML Enema Enema 7-19 GM/118ML Enema 7-19 GM/118ML 10/09/2020 12:00:00 AM EDT suspended Enema 7-19 GM/118ML eCW1 ([facility]) Bisacodyl 5 MG UNK 10/09/2020 12:00:00 AM EDT suspended Bisacodyl 5 MG eCW1 ([facility]) Bisacodyl 5 MG UNK 10/09/2020 12:00:00 AM EDT suspended Bisacodyl 5 MG eCW1 ([facility]) Mineral Oil 1000 MG/ML Enema Enema 7-19 GM/118ML Enema 7-19 GM/118ML 10/09/2020 12:00:00 AM EDT active Enema 7- 19 GM/118ML eCW1 ([facility]) Mineral Oil 1000 MG/ML Enema Enema 7-19 GM/118ML Enema 7-19 GM/118ML 10/09/2020 12:00:00 AM EDT suspended Enema 7-19 GM/118ML eCW1 ([facility]) Mineral Oil 1000 MG/ML Enema Enema 7-19 GM/118ML Enema 7-19 GM/118ML 10/09/2020 12:00:00 AM EDT active Enema 7- 19 GM/118ML eCW1 ([facility]) Bisacodyl 5 MG UNK 10/09/2020 12:00:00 AM EDT active Bisacodyl 5 MG eCW1 ([facility]) Mineral Oil 1000 MG/ML Enema Enema 7-19 GM/118ML Enema 7-19 GM/118ML 10/09/2020 12:00:00 AM EDT active Enema 7- 19 GM/118ML eCW1 ([facility]) Bisacodyl 5 MG UNK 10/09/2020 12:00:00 AM EDT active Bisacodyl 5 MG eCW1 ([facility]) Bisacodyl 5 MG UNK 10/09/2020 12:00:00 AM EDT active Bisacodyl 5 MG eCW1 ([facility]) Bisacodyl 5 MG UNK 10/09/2020 12:00:00 AM EDT suspended Bisacodyl 5 MG eCW1 ([facility]) Mineral Oil 1000 MG/ML Enema Enema 7-19 GM/118ML Enema 7-19 GM/118ML 10/09/2020 12:00:00 AM EDT active Enema 7- 19 GM/118ML eCW1 ([facility]) Mineral Oil 1000 MG/ML Enema Enema 7-19 GM/118ML Enema 7-19 GM/118ML 10/09/2020 12:00:00 AM EDT active Enema 7- 19 GM/118ML eCW1 ([facility]) Mineral Oil 1000 MG/ML Enema Enema 7-19 GM/118ML Enema 7-19 GM/118ML 10/09/2020 12:00:00 AM EDT suspended Enema 7-19 GM/118ML eCW1 ([facility]) Mineral Oil 1000 MG/ML Enema Enema 7-19 GM/118ML Enema 7-19 GM/118ML 10/09/2020 12:00:00 AM EDT suspended Enema 7-19 GM/118ML eCW1 ([facility]) Bisacodyl 5 MG UNK 10/09/2020 12:00:00 AM EDT active Bisacodyl 5 MG eCW1 ([facility]) Bisacodyl 5 MG UNK 10/09/2020 12:00:00 AM EDT suspended Bisacodyl 5 MG eCW1 ([facility]) Mineral Oil 1000 MG/ML Enema Enema 7-19 GM/118ML Enema 7-19 GM/118ML 10/09/2020 12:00:00 AM EDT active Enema 7- 19 GM/118ML eCW1 ([facility]) Mineral Oil 1000 MG/ML Enema Enema 7-19 GM/118ML Enema 7-19 GM/118ML 10/09/2020 12:00:00 AM EDT suspended Enema 7-19 GM/118ML eCW1 ([facility]) Bisacodyl 5 MG UNK 10/09/2020 12:00:00 AM EDT active Bisacodyl 5 MG eCW1 ([facility]) Bisacodyl 5 MG UNK 10/09/2020 12:00:00 AM EDT active Bisacodyl 5 MG eCW1 ([facility]) Mineral Oil 1000 MG/ML Enema Enema 7-19 GM/118ML Enema 7-19 GM/118ML 10/09/2020 12:00:00 AM EDT suspended Enema 7-19 GM/118ML eCW1 ([facility]) Bisacodyl 5 MG UNK 10/09/2020 12:00:00 AM EDT active Bisacodyl 5 MG eCW1 ([facility]) Mineral Oil 1000 MG/ML Enema Enema 7-19 GM/118ML Enema 7-19 GM/118ML 10/09/2020 12:00:00 AM EDT active Enema 7- 19 GM/118ML eCW1 ([facility]) Mineral Oil 1000 MG/ML Enema Enema 7-19 GM/118ML Enema 7-19 GM/118ML 10/09/2020 12:00:00 AM EDT suspended Enema 7-19 GM/118ML eCW1 ([facility]) Bisacodyl 5 MG UNK 10/09/2020 12:00:00 AM EDT active Bisacodyl 5 MG eCW1 ([facility]) Mineral Oil 1000 MG/ML Enema Enema 7-19 GM/118ML Enema 7-19 GM/118ML 10/09/2020 12:00:00 AM EDT suspended Enema 7-19 GM/118ML eCW1 ([facility]) Bisacodyl 5 MG UNK 10/09/2020 12:00:00 AM EDT active Bisacodyl 5 MG eCW1 ([facility]) Mineral Oil 1000 MG/ML Enema Enema 7-19 GM/118ML Enema 7-19 GM/118ML 10/09/2020 12:00:00 AM EDT suspended Enema 7-19 GM/118ML eCW1 ([facility]) Bisacodyl 5 MG UNK 10/09/2020 12:00:00 AM EDT suspended Bisacodyl 5 MG eCW1 ([facility]) Bisacodyl 5 MG UNK 10/09/2020 12:00:00 AM EDT suspended Bisacodyl 5 MG eCW1 ([facility]) Mineral Oil 1000 MG/ML Enema Enema 7-19 GM/118ML Enema 7-19 GM/118ML 10/09/2020 12:00:00 AM EDT active Enema 7- 19 GM/118ML eCW1 ([facility]) Bisacodyl 5 MG UNK 10/09/2020 12:00:00 AM EDT active Bisacodyl 5 MG eCW1 ([facility]) 5 mg 10/09/2020 12:00:00 AM EDT tablet,delayed release (DR/EC) 120 TAKE TWO TABLETS BY MOUTH TWO TIMES A DAY NEEDED TAKE TWO TABLETS BY MOUTH TWO TIMES A DAY NEEDED SOLD: 10/09/2020 [facility] Mineral Oil 1000 MG/ML Enema Enema 7-19 GM/118ML Enema 7-19 GM/118ML 10/09/2020 12:00:00 AM EDT suspended Enema 7-19 GM/118ML eCW1 ([facility]) Bisacodyl 5 MG UNK 10/09/2020 12:00:00 AM EDT suspended Bisacodyl 5 MG eCW1 ([facility]) Mineral Oil 1000 MG/ML Enema Enema 7-19 GM/118ML Enema 7-19 GM/118ML 10/09/2020 12:00:00 AM EDT active Enema 7- 19 GM/118ML eCW1 ([facility]) Bisacodyl 5 MG UNK 10/09/2020 12:00:00 AM EDT suspended Bisacodyl 5 MG eCW1 ([facility]) Bisacodyl 5 MG UNK 10/09/2020 12:00:00 AM EDT suspended Bisacodyl 5 MG eCW1 ([facility]) Mineral Oil 1000 MG/ML Enema Enema 7-19 GM/118ML Enema 7-19 GM/118ML 10/09/2020 12:00:00 AM EDT active Enema 7- 19 GM/118ML eCW1 ([facility]) Bisacodyl 5 MG UNK 10/09/2020 12:00:00 AM EDT suspended Bisacodyl 5 MG eCW1 ([facility]) Amitriptyline Hydrochloride 10 MG Oral Tablet Amitript yline HCl 10 MG Amitriptyline HCl 10 MG 08/09/2020 12:00:00 AM EDT 1.0 {tablet_at_b edtime} active Amitriptyline HCl 10 MG e CW1 ([facility]) Amitriptyline Hydrochloride 10 MG Oral Tablet Amitript yline HCl 10 MG Amitriptyline HCl 10 MG 08/09/2020 12:00:00 AM EDT 1.0 {tablet_at_b edtime} suspended Amitriptyline HCl 10 MG e CW1 ([facility]) Amitriptyline Hydrochloride 10 MG Oral Tablet Amitript yline HCl 10 MG Amitriptyline HCl 10 MG 08/09/2020 12:00:00 AM EDT 1.0 {tablet_at_b edtime} active Amitriptyline HCl 10 MG e CW1 ([facility]) Amitriptyline Hydrochloride 10 MG Oral Tablet Amitript yline HCl 10 MG Amitriptyline HCl 10 MG 08/09/2020 12:00:00 AM EDT 1.0 {tablet_at_b edtime} active Amitriptyline HCl 10 MG e CW1 ([facility]) Amitriptyline Hydrochloride 10 MG Oral Tablet Amitript yline HCl 10 MG Amitriptyline HCl 10 MG 08/09/2020 12:00:00 AM EDT 1.0 {tablet_at_b edtime} active Amitriptyline HCl 10 MG e CW1 ([facility]) Amitriptyline Hydrochloride 10 MG Oral Tablet Amitript yline HCl 10 MG Amitriptyline HCl 10 MG 08/09/2020 12:00:00 AM EDT 1.0 {tablet_at_b edtime} active Amitriptyline HCl 10 MG e CW1 ([facility]) Amitriptyline Hydrochloride 10 MG Oral Tablet Amitript yline HCl 10 MG Amitriptyline HCl 10 MG 08/09/2020 12:00:00 AM EDT 1.0 {tablet_at_b edtime} active Amitriptyline HCl 10 MG e CW1 ([facility]) Amitriptyline Hydrochloride 10 MG Oral Tablet Amitript yline HCl 10 MG Amitriptyline HCl 10 MG 08/09/2020 12:00:00 AM EDT 1.0 {tablet_at_b edtime} suspended Amitriptyline HCl 10 MG e CW1 ([facility]) Amitriptyline Hydrochloride 10 MG Oral Tablet Amitript yline HCl 10 MG Amitriptyline HCl 10 MG 08/09/2020 12:00:00 AM EDT 1.0 {tablet_at_b edtime} active Amitriptyline HCl 10 MG e CW1 ([facility]) 10 mg 08/09/2020 12:00:00 AM EDT tablet 30 TAKE ONE TABLET BY MOUTH EVERY DAY AT BEDTIME TAKE ONE TABLET BY MOUTH EVERY DAY AT BEDTIME SOLD: 08/10/2020 [facility] Amitriptyline Hydrochloride 10 MG Oral Tablet Amitript yline HCl 10 MG Amitriptyline HCl 10 MG 08/09/2020 12:00:00 AM EDT 1.0 {tablet_at_b edtime} active Amitriptyline HCl 10 MG e 1 ([facility]) Amitriptyline Hydrochloride 10 MG Oral Tablet Amitript yline HCl 10 MG Amitriptyline HCl 10 MG 08/09/2020 12:00:00 AM EDT 1.0 {tablet_at_b edtime} active Amitriptyline HCl 10 MG e 1 ([facility]) Amitriptyline Hydrochloride 10 MG Oral Tablet Amitript yline HCl 10 MG Amitriptyline HCl 10 MG 08/09/2020 12:00:00 AM EDT 1.0 {tablet_at_b edtime} active Amitriptyline HCl 10 MG e CW1 ([facility]) Amitriptyline Hydrochloride 10 MG Oral Tablet Amitript yline HCl 10 MG Amitriptyline HCl 10 MG 08/09/2020 12:00:00 AM EDT 1.0 {tablet_at_b edtime} suspended Amitriptyline HCl 10 MG e 1 ([facility]) Amitriptyline Hydrochloride 10 MG Oral Tablet Amitript yline HCl 10 MG Amitriptyline HCl 10 MG 08/09/2020 12:00:00 AM EDT 1.0 {tablet_at_b edtime} active Amitriptyline HCl 10 MG e 1 ([facility]) 150 mg 07/07/2020 12:00:00 AM EDT tablet 1 TAKE ONE TABLET BY MOUTH ONCE FOR FUNGAL INFECTION TAKE ONE TABLET BY MOUTH ONCE FOR FUNGAL INFECTION [facility] 0.75 % 06/30/2020 12:00:00 AM EDT gel 70 INSERT ONE APPLICATORFUL VAGINALLY AT BEDTIME FOR 5 NIGHTS INSERT ONE APPLICATORFUL VAGINALLY AT BE DTIME FOR 5 NIGHTS SOLD: 06/30/2020 [facility] Insurance Providers Payer name Policy type / Coverage type Policy ID Covered libertarian ID Covered libertarian's relationship to [place] Policy [place] Plan Information Medicaid S [id number] S [id number] Medicaid Dental S [id number] S [id number] Managed Care - Community Plan [facility] P [id number] S [id number] D Managed Care [facility] P [id number] S [id number] Managed Care Community Plan [facility] P [id number] S [id number] Medicaid S [id number] S [id number] Managed Care - Community Plan [facility] P [id number] S [id number] Medicaid S [id number] S [id number] Managed Care [facility] Community Plan P [id number] S [id number] Managed Care - Community Plan [facility] P [id number] S [id number] [facility] [employer] [id number] Self Pay O [id number] S [id number] [facility] [id number] SP [id number] [facility] [id number] [facility] [id number] [id number] [facility] COMM[facility] [id number] SP [id number] [facility] [id number] SP [id number] MEDICAID [id number] SP [id number] [facility] [id number] Problems, Conditions, and Diagnoses Code Display Name Description Problem Type Effective Dates Data Source(s) N92.6 Irregular periods Irregular bleeding Problem 12/28/2020 12:00:00 AM EDT eCW1 ([facility]) Z34.80 care Supervision of other normal Kristen carvajal 11/06/2020 12:00:00 AM EDT eCW1 ([facility]) K59.00 [id number] Constipation, unspecified constipation ty pe Problem 10/30/2020 12:00:00 AM EDT eCW1 ([facility]) O99.842 [id number] affected b y previous bariatric surgery, currently in second trimester Problem 10/30/2020 12:00:00 AM EDT eCW 1 ([facility]) K59.01 [id number] Slow transit constipation Problem 10/09/2020 12:00:00 AM EDT eCW1 ([facility]) N97.9 [id number] Infertility, female Problem 08/09/2020 12:00 :00 AM EDT eCW1 ([facility]) Surgeries/Procedures Procedure Description Date Indications Data Source(s) Medication: 2% Lidocaine intradermal 12/12/2020 12:00: 00 AM EDT eCW1 ([facility]) Results ID Date Data Source Type and Screen Prenatal1 11/26/2020 12:00:00 AM EDT eCW1 ([facility]) Name Value Range Interpretation Code Description Data Kati rce(s) Supporting Document(s) NEGATIVE AB SCREEN PNP1 GEL (VIS) eCW1 ([facility]) ID Date Data Source HCG, SERUM QUANTITATIVE 11/19/2020 12:00:00 AM EDT eCW1 ([facility]) Name Value Range Interpretation Code Description Data Kati rce(s) Supporting Document(s) 5411 HCG, SERUM QUANTITATIVE eCW1 ( [facility]) ID Date Data Source CBC - Complete Blood Count 11/08/2020 12:00:00 AM EDT eCW1 ( [facility]) Name Value Range Interpretation Code Description Data Kati rce(s) Supporting Document(s) 10.4 4.0-10.0 WHITE BLOOD COUNT eCW1 ([facility]) 10.7 12.0-15.5 HEMOGLOBIN eCW1 ([facility]) 3.82 4.00-5.40 RED BLOOD COUNT eCW1 ([facility]) 86.6 80.0-96.0 MEAN CORPUSCULAR VOLUME e CW1 ([facility]) 33.1 36.0-47.0 HEMATOCRIT eCW1 ([facility]) 28.0 27.0-33.0 MEAN CORPUSCULAR HEMOGLOB IN eCW1 ([facility]) 32.3 32.0-36.5 MEAN CORPUSCULAR HGB CONC eCW1 ([facility]) 12.2 11.5-14.5 RED CELL DISTRIBUTION WID TH eCW1 ([facility]) 383 150-450 PLATELET COUNT, AUTOMATED eCW1 ([facility]) ID Date Data Source Type and Screen (D Rh Antibody Screen) 11/08/2020 12:00:00 A M EDT eCW1 ([facility]) Name Value Range Interpretation Code Description Data Kati rce(s) Supporting Document(s) B POSITIVE BLOOD TYPE eCW1 ([facility]) NEGATIVE AB SCREEN (INDIRECT COOMB S)VIS eCW1 ([facility]) ID Date Data Source Comprehensive Metabolic Profile (CMP) 10/30/2020 12:00:00 AM EDT eCW1 ([facility]) Name Value Range Interpretation Code Description Data Kati rce(s) Supporting Document(s) 9 7-18 BLOOD UREA NITROGEN eCW1 ([facility]) 84 70-100 GLUCOSE, FASTING eCW1 ([facility]) 0.56 0.55-1.30 CREATININE FOR GFR eCW1 ([facility]) > 60.0 >60 GLOMERULAR FILTRATION RATE eCW 1 ([facility]) 4.6 3.5-5.1 POTASSIUM SERUM eCW1 ([facility]) 136 136-145 SODIUM LEVEL eCW1 ([facility]) 106 98-107 CHLORIDE LEVEL eCW1 ([facility]) 9.3 8.5-10.1 CALCIUM LEVEL eCW1 ([facility]) 24 21-32 CARBON DIOXIDE LEVEL eCW1 ([facility]) 49 45-117 ALKALINE PHOSPHATASE eCW1 ([facility]) 8 7-37 AST/SGOT eCW1 ([facility]) 19 12-78 ALT/SGPT eCW1 ([facility]) 4.2 3.2-5.2 ALBUMIN eCW1 ([facility]) 0.4 0.2-1.0 BILIRUBIN,TOTAL eCW1 ([facility]) 7.9 6.4-8.2 TOTAL PROTEIN eCW1 ([facility]) 1.1 1.2-2.2 ALBUMIN/GLOBULIN RATIO eCW1 ([facility]) Procedure Social History Code Duration Value Status Description Data Source(s ) Smoking 12/12/2020 12:00:00 AM EDT Never Smoker completed Never S moker eCW1 ([facility]) Smoking 12/12/2020 12:00:00 AM EDT Never Smoker completed Never S moker eCW1 ([facility]) Smoking 11/19/2020 12:00:00 AM EDT Never Smoker completed Never S moker eCW1 ([facility]) Smoking 11/19/2020 12:00:00 AM EDT Never Smoker completed Never S moker eCW1 ([facility]) Smoking 11/19/2020 12:00:00 AM EDT Never Smoker completed Never S moker eCW1 ([facility]) Smoking 11/19/2020 12:00:00 AM EDT Never Smoker completed Never S moker eCW1 ([facility]) Smoking 11/19/2020 12:00:00 AM EDT Never Smoker completed Never S moker eCW1 ([facility]) Smoking 11/19/2020 12:00:00 AM EDT Never Smoker completed Never S moker eCW1 ([facility]) Smoking 11/19/2020 12:00:00 AM EDT Never Smoker completed Never S moker eCW1 ([facility]) Smoking 11/19/2020 12:00:00 AM EDT Never Smoker completed Never S moker eCW1 ([facility]) Smoking 11/08/2020 12:00:00 AM EDT Never Smoker completed Never S moker eCW1 ([facility]) Smoking 10/30/2020 12:00:00 AM EDT Never Smoker completed Never S moker eCW1 ([facility]) Smoking 10/30/2020 12:00:00 AM EDT Never Smoker completed Never S moker eCW1 ([facility]) Smoking 10/09/2020 12:00:00 AM EDT Never Smoker completed Never S moker eCW1 ([facility]) Smoking 10/09/2020 12:00:00 AM EDT Never Smoker completed Never S moker eCW1 ([facility]) Smoking 10/09/2020 12:00:00 AM EDT Never Smoker completed Never S moker eCW1 ([facility]) Smoking 10/09/2020 12:00:00 AM EDT Never Smoker completed Never S moker eCW1 ([facility]) Smoking 10/09/2020 12:00:00 AM EDT Never Smoker completed Never S moker eCW1 ([facility]) Smoking 10/09/2020 12:00:00 AM EDT Never Smoker completed Never S moker eCW1 ([facility]) Smoking 10/09/2020 12:00:00 AM EDT Never Smoker completed Never S moker eCW1 ([facility]) Smoking 10/01/2020 12:00:00 AM EDT Never Smoker completed Never S moker eCW1 ([facility]) Smoking 10/01/2020 12:00:00 AM EDT Never Smoker completed Never S moker eCW1 ([facility]) Smoking 08/09/2020 12:00:00 AM EDT Never Smoker completed Never S moker eCW1 ([facility]) Smoking 08/09/2020 12:00:00 AM EDT Never Smoker completed Never S moker eCW1 ([facility]) Vital Signs ID Date Data Source UNK Name Value Range Interpretation Code Description Data Source(s) Body weight 129.8 [lb_av] 129.8 [lb_av] eCW1 ([facility]) Body height 61 [in_i] 61 [in_i] eCW1 ([facility]) Body mass index (BMI) [Ratio] 24.52 kg/m2 24.52 kg/m2 eCW1 ([facility]) Systolic blood pressure 108 mm[Hg] 108 mm[Hg] e CW1 ([facility]) Diastolic blood pressure 70 mm[Hg] 70 mm[Hg] eCW1 ([facility]) Body weight 127.2 [lb_av] 127.2 [lb_av] eCW1 ([facility]) Body height 61 [in_i] 61 [in_i] eCW1 ([facility]) Body mass index (BMI) [Ratio] 24.03 kg/m2 24.03 kg/m2 eCW1 ([facility]) Systolic blood pressure 114 mm[Hg] 114 mm[Hg] e CW1 ([facility]) Diastolic blood pressure 68 mm[Hg] 68 mm[Hg] eCW1 ([facility]) Body weight 127.6 [lb_av] 127.6 [lb_av] eCW1 ([facility]) Body height 61 [in_i] 61 [in_i] eCW1 ([facility]) Body mass index (BMI) [Ratio] 24.11 kg/m2 24.11 kg/m2 eCW1 ([facility]) Systolic blood pressure 118 mm[Hg] 118 mm[Hg] e CW1 ([facility]) Diastolic blood pressure 74 mm[Hg] 74 mm[Hg] eCW1 ([facility]) Body weight 127 [lb_av] 127 [lb_av] eCW1 ([facility]) Body height [in_i] eCW1 ([facility]) Body mass index (BMI) [Ratio] 23.99 kg/m2 23.99 kg/m2 eCW1 ([facility]) Heart rate 112 /min 112 /min eCW1 ([facility]) Respiratory rate 18 /min 18 /min eCW1 ([facility]) Body temperature 97.9 [degF] 97.9 [degF] eCW1 ( [facility]) Systolic blood pressure 120 mm[Hg] 120 mm[Hg] e CW1 ([facility]) Diastolic blood pressure 66 mm[Hg] 66 mm[Hg] eCW1 ([facility]) Body weight 128 [lb_av] 128 [lb_av] eCW1 ([facility]) Body height [in_i] eCW1 ([facility]) Body mass index (BMI) [Ratio] 24.18 kg/m2 24.18 kg/m2 eCW1 ([facility]) Heart rate 102 /min 102 /min eCW1 ([facility]) Respiratory rate 18 /min 18 /min eCW1 ([facility]) Body temperature 98.0 [degF] 98.0 [degF] eCW1 ( [facility]) Systolic blood pressure 100 mm[Hg] 100 mm[Hg] e CW1 ([facility]) Diastolic blood pressure 60 mm[Hg] 60 mm[Hg] eCW1 ([facility]) Body weight 132 [lb_av] 132 [lb_av] eCW1 ([facility]) Body height [in_i] eCW1 ([facility]) Body mass index (BMI) [Ratio] 24.94 kg/m2 24.94 kg/m2 eCW1 ([facility]) Heart rate 82 /min 82 /min eCW1 ([facility]) Respiratory rate 18 /min 18 /min eCW1 ([facility]) Body temperature 97.2 [degF] 97.2 [degF] eCW1 ( [facility]) Systolic blood pressure 120 mm[Hg] 120 mm[Hg] e CW1 ([facility]) Diastolic blood pressure 70 mm[Hg] 70 mm[Hg] eCW1 ([facility]) Systolic blood pressure 118 mm[Hg] 118 mm[Hg] M EDENT ([facility]) Diastolic blood pressure 74 mm[Hg] 74 mm[Hg] MEDENT ([facility], [facility]) Heart rate 68 /min 68 /min MEDENT ([facility]) Respiratory rate 14 /min 14 /min [facility] Oxygen saturation in Arterial blood by Pulse oximetry 99 % 99 % [facility]) Body temperature 98.4 [degF] 98.4 [degF] MEDENT ([facility]) Body weight 130.00 [lb_av] 130.00 [lb_av] MEDEN T ([facility]) Body height 61 [in_i] 61 [in_i] [facility] 5'1" Body mass index (BMI) [Ratio] 24.6 kg/m2 24.6 k g/m2 [facility] ([facility]) Patient Treatment Plan of Care Planned Activity Planned Date Details Description Data Source (s) Acetaminophen 325 MG / Oxycodone Hydrochloride 5 MG Or al Tablet [Percocet] 11/09/2020 12:00:00 AM EDT eCW1 ([facility]) Misoprostol 0.2 MG Oral Tablet 11/09/2020 12:00:00 AM EDT eCW1 ([facility]) Mineral Oil 1000 MG/ML Enema 10/09/2020 12:00:00 AM EDT eCW1 ([facility]) Bisacodyl 5 MG 10/09/2020 12:00:00 AM EDT eCW1 ([facility]) Mineral Oil 1000 MG/ML Enema 10/09/2020 12:00:00 AM EDT eCW1 ([facility]) Bisacodyl 5 MG 10/09/2020 12:00:00 AM EDT eCW1 ([facility]) Mineral Oil 1000 MG/ML Enema 10/09/2020 12:00:00 AM EDT eCW1 ([facility]) Bisacodyl 5 MG 10/09/2020 12:00:00 AM EDT eCW1 ([facility]) Mineral Oil 1000 MG/ML Enema 10/09/2020 12:00:00 AM EDT eCW1 ([facility]) Bisacodyl 5 MG 10/09/2020 12:00:00 AM EDT eCW1 ([facility]) Mineral Oil 1000 MG/ML Enema 10/09/2020 12:00:00 AM EDT eCW1 ([facility]) Bisacodyl 5 MG 10/09/2020 12:00:00 AM EDT eCW1 ([facility]) Mineral Oil 1000 MG/ML Enema 10/09/2020 12:00:00 AM EDT eCW1 ([facility]) Bisacodyl 5 MG 10/09/2020 12:00:00 AM EDT eCW1 ([facility]) Mineral Oil 1000 MG/ML Enema 10/09/2020 12:00:00 AM EDT eCW1 ([facility]) Bisacodyl 5 MG 10/09/2020 12:00:00 AM EDT eCW1 ([facility]) Amitriptyline Hydrochloride 10 MG Oral Tablet 08/09/2020 12:00:00 A M EDT eCW1 ([facility]) Amitriptyline Hydrochloride 10 MG Oral Tablet 08/09/2020 12:00:00 A M EDT eCW1 ([facility]) Amitriptyline Hydrochloride 10 MG Oral Tablet 08/09/2020 12:00:00 A M EDT eCW1 ([facility]) Amitriptyline Hydrochloride 10 MG Oral Tablet 08/09/2020 12:00:00 A M EDT eCW1 ([facility]) Amitriptyline Hydrochloride 10 MG Oral Tablet 08/09/2020 12:00:00 A M EDT eCW1 ([facility]) Amitriptyline Hydrochloride 10 MG Oral Tablet 08/09/2020 12:00:00 A M EDT eCW1 ([facility]) Amitriptyline Hydrochloride 10 MG Oral Tablet 08/09/2020 12:00:00 A M EDT eCW1 ([facility]) Amitriptyline Hydrochloride 10 MG Oral Tablet 08/09/2020 12:00:00 A M EDT eCW1 ([facility]) Amitriptyline Hydrochloride 10 MG Oral Tablet 08/09/2020 12:00:00 A M EDT eCW1 ([facility]) Amitriptyline Hydrochloride 10 MG Oral Tablet 08/09/2020 12:00:00 A M EDT eCW1 ([facility]) Amitriptyline Hydrochloride 10 MG Oral Tablet 08/09/2020 12:00:00 A M EDT eCW1 ([facility])
--- OUTSIDE RECORDS SUMMARY | 2020-12-31 08:33 | CCD ---
Author Author [facility] Organization [facility] Address Unknown Phone Unavailable Care Team Providers Care Living Manager Name Role Phone Sadie Amin Unavailable PROBLEMS Type Condition ICD9-CM Code [id number] Code Onset Dates Condition S tatus W/U Status Risk SNOMED Code Notes Problem Infertility, female N97.9 Active confirmed 6290982 Problem Slow transit constipation K59.01 Active confirmed 48414119 Problem Migraine without aura and without status migrain osus, not intractable G43.009 Active confirmed [id number] ALLERGIES No Known Allergies ENCOUNTERS from 1997 to 2020-10-12 Encounter Location Date Provider Diagnosis [address] [phone] [place] [address] Sep, Sadie Amin IMMUNIZATIONS No Information SOCIAL HISTORY Tobacco Use: Social History Observation Description Date Details (start date - stop date) Never Smoker Sex Assigned At : Social History Observation Description Sex Assigned At Unknown Education: Question Answer Notes Level of Education: GED Language: Question Answer Notes Languages spoken: Polish Sabianist: Question Answer Notes Sabianist 33 None Domestic Violence: Question Answer Notes [...] Notes Start Da te End Date Status Amitriptyline HCl 10 MG 1 tablet at bedtime Orally Once a day fo r 30 day(s) Jul, Active 19 - 1 tablet Orally Once a day for 30 day(s) Active Bisacodyl 5 MG 2tablet as needed Orally bid for 30 day(s) Sep, Active Enema 7-19 GM/118ML as directed Rectal before bedtime for 7 day( s) Sep, Active SUMAtriptan Succinate 50 MG 1 tablet as needed; may re peat in 2 hours if headache persists Orally Twice a day Apr, Not-Taking PROCEDURES No Information RESULTS No Results REASON FOR VISIT blood work results? MEDICAL (GENERAL) HISTORY Type Description Date Medical [...] a da y for 30 day(s) Jul, Enema 7-19 GM/118ML as directed Rectal before bedtime for 7 day( s) Sep, Bisacodyl 5 MG 2tablet as needed Orally bid for 30 day(s) 2020 Next Appt Details Provider Name:Sadie Amin, 2020-10-30 11:00:00 AM, [address] [place] [address], , [place], [address], Provider Name:Sunshine Templeton, 2020-11-08 02:20:00 PM, [address] [place] [address], , [place], [address], Insurance Providers Payer Name Payer Address Payer Phone Insured Name Patient Relati onship to Insured Coverage Start Date Coverage End Date [facility] CLAIMS DEPT [address] [facility] [phone] [place] self
--- OUTSIDE RECORDS SUMMARY | 2020-12-31 08:33 | CCD ---
Author Author [facility] Organization [facility] Address Unknown Phone Unavailable Care Team Providers Care Clinical Documentation Manager Name Role Phone Jodie Sanders Unavailable PROBLEMS Type Condition ICD9-CM Code [id number] Code Onset Dates Condition S tatus W/U Status Risk SNOMED Code Notes Problem Infertility, female N97.9 Active confirmed 7590365 Problem Slow transit constipation K59.01 Active confirmed 19593574 Problem Migraine without aura and without status migrain osus, not intractable G43.009 Active confirmed [id number] ALLERGIES No Known Allergies ENCOUNTERS from 1997 to 2020-10-10 Encounter Location Date Provider Diagnosis [address] [phone] [place] [address] Sep, Jodie Marilyn Pelvic pain R10.2 ; Slow tra nsit constipation K59.01 and Migraine without aura and without status migrainosus, not intractable G43.009 IMMUNIZATIONS No Information SOCIAL HISTORY Tobacco Use: Social History Observation Description Date Details (start date - stop date) Never Smoker Sex Assigned At : Social History Observation Description Sex Assigned At Unknown Education: Question Answer Notes Level of Education: GED Language: Question Answer Notes Languages spoken: Ghanaian Tenriism: Question Answer Notes Tenriism 33 None Domestic Violence: Question Answer Notes [...] FOR REFERRAL No Information VITAL SIGNS Weight 128 lbs Sep, Height 5'1" in Sep, BMI 24.18 kg/m2 Sep, Heart Rate 102 /min Sep, Respiratory Rate 18 /min Sep, Temperature 98.0 degrees Fahrenheit Sep, Oximetry 98 Sep, Blood pressure systolic 100 mm Hg Sep, Blood pressure diastolic 60 mm Hg Sep, MEDICATIONS Medication SIG (Take, Route, Frequency, Duration) [...] Information RESULTS No Results REASON FOR VISIT [facility] ED, uterine pain, shoulder pain MEDICAL (GENERAL) HISTORY Type Description Date Medical History Migraines without aura Surgical History No know Surgical history Goals Section No Information Health Concerns No Information MEDICAL EQUIPMENT No Information MENTAL STATUS No Information FUNCTIONAL STATUS No Information ASSESSMENTS Encounter Date Diagnosis Assessment Notes Treatment Notes Treatm ent Clinical Notes Sep, Pelvic pain (ICD-10 - R10.2) Possible ectopic advised pt. if pain worsens not to ignore present to ED. Her reports prior pelvic ultrasound s IUP evident in ED no sign of fetus, HCG was 500 in ED. Sees Communication Arts Lecturer for evaluation 11/08/2020. Discussed c Dr. Amin, will have f/u soon c her. 10/09/2020 HCG was 2237 10/06/2020 HCG was 539 Sep, Slow transit constipation (ICD-10 - K59.01) Cont. laxatives since has for 5Y, MOM, Lactulose prn Sep, Migraine without aura and wi thout status migrainosus, not intractable (ICD-10 - G43.009) continue s med.s 2 , unable to use meds. that help it Sep, Other 25" chart prep/ review, h&p, orders/plan,discussions PLAN OF TREATMENT Medication Medication Name Sig Start Date Stop Date Amitriptyline HCl 10 MG 1 tablet at bedtime Orally Once a da y for 30 day(s) Jul, Enema 7-19 GM/118ML as directed Rectal before bedtime for 7 day( s) Sep, Bisacodyl 5 MG 2tablet as needed Orally bid for 30 day(s) 2020 Treatment Notes Assessment Notes Clinical Notes Pelvic pain Possible ectopic adv ised pt. if pain worsens not to ignore present to ED. Her reports prior pelvic ultrasound s IUP evident in ED no sign of fetus, HCG was 500 in ED. Sees Communication [employer] Lecturer for evaluation 11/08/2020. Discussed c Dr. Amin, will have f/u soon c her.10/09/2020 HCG was [address]03/08/2020 HCG was 539 Slow transit constipation Cont. laxative s since has for 5Y, MOM, Lactulose prn Migraine without aura and without status migrainosus, not in tractable continue s med.s 2 , unable to use meds. that help it Next Appt Details 2-3 Weeks for constipation, Re ason: Provider Name:Sadie Amin, 2020-10-30 11:00:00 AM, [address] [place] [address], , [place], [address], Provider Name:Sunshine Templeton, 2020-11-08 02:20:00 PM, [address] [place] [address], , [place], [address], Insurance Providers Payer Name Payer Address Payer Phone Insured Name Patient Relati onship to Insured Coverage Start Date Coverage End Date [facility] [employer] CLAIMS DEPT [address] [place] [phone] [place] self
--- OUTSIDE RECORDS SUMMARY | 2020-12-31 08:33 | CCD ---
Author Author [facility] Organization [facility] Address Unknown Phone Unavailable Care Team Providers Care Booking Manager Name Role Phone Sadie Amin Unavailable PROBLEMS Type Condition ICD9-CM Code [id number] Code Onset Dates Condition S tatus W/U Status Risk SNOMED Code Notes Problem Infertility, female N97.9 Active confirmed 7489276 Problem Slow transit constipation K59.01 Active confirmed 55287084 Problem Migraine without aura and without status migrain osus, not intractable G43.009 Active confirmed [id number] ALLERGIES No Known Allergies ENCOUNTERS from 1997 to 2020-10-10 Encounter Location Date Provider Diagnosis [address] [phone] [place] [address] 11 Sep, 2020 Sadie Amin RLQ abdominal pain R10.31 IMMUNIZATIONS No Information SOCIAL HISTORY Tobacco Use: Social History Observation Description Date Details (start date - stop date) Never Smoker Sex Assigned At : Social History Observation Description Sex Assigned At Unknown Education: Question Answer Notes Level of Education: GED Language: Question Answer Notes Languages spoken: French Jain: Question Answer Notes Jain 33 None Domestic Violence: Question Answer Notes [...] Information RESULTS No Results REASON FOR VISIT Hcg result and ultrasound MEDICAL (GENERAL) HISTORY Type Description Date Medical History Migraines without aura Surgical History No know Surgical history Goals Section No Information Health Concerns No Information MEDICAL EQUIPMENT No Information MENTAL STATUS No Information FUNCTIONAL STATUS No Information ASSESSMENTS Encounter Date Diagnosis Assessment Notes Treatment Notes Treatm ent Clinical Notes Sep, RLQ abdominal pain (ICD-10 - R10.31) PLAN OF TREATMENT Medication Medication Name Sig Start Date Stop Date Amitriptyline HCl 10 MG 1 tablet at bedtime Orally Once a da y for 30 day(s) Jul, Enema 7-19 GM/118ML as directed Rectal before bedtime for 7 day( s) Sep, Bisacodyl 5 MG 2tablet as needed Orally bid for 30 day(s) Au 2020 Future Test Test Name Order Date US OB<14WKS SINGLE OR 1ST GEST [id number] Next Appt Details Provider Name:Sadie Amin, 2020-10-30 11:00:00 AM, [address] [place] [address], , [place], [address], Provider Name:Sunshine Templeton, 2020-11-08 02:20:00 PM, [address] [place] [address], , [place], [address], Insurance Providers Payer Name Payer Address Payer Phone Insured Name Patient Relati onship to Insured Coverage Start Date Coverage End Date [employer] CLAIMS DEPT [address] [facility] [phone] [place] self
--- OUTSIDE RECORDS SUMMARY | 2020-12-31 08:33 | CCD ---
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 O99.842 Active confirmed 955593681634083 Problem Constipation, unspecified constipation type K59.00 Active confirmed 56785597 Problem Migraine without aura and without status migrain osus, not intractable G43.009 Active confirmed 443653409 Problem Infertility, female N97.9 Active confirmed 4853976 Problem Slow transit constipation K59.01 Active confirmed 05774972 ALLERGIES No Known Allergies ENCOUNTERS from 1997 to 2020-10-30 Encounter Location Date Provider Diagnosis [address] [phone] [place] [address] Sep, Sadie Amin IMMUNIZATIONS No Information SOCIAL HISTORY Tobacco Use: Social History Observation Description Date Details (start date - stop date) Never Smoker Sex Assigned At : Social History Observation Description Sex Assigned At Unknown Education: Question Answer Notes Level of Education: GED Audit Question Answer Notes Total Score: 0 Interpretation: Alcohol Education Language: Question Answer Notes Languages spoken: Guatemalan Jewish: Question Answer Notes Jewish 33 None Domestic Violence: Question Answer Notes [...] day fo r 30 day(s) Jul, Not-Taking Enema 7-19 GM/118ML as directed Rectal before bedtime for 7 day( s) Sep, Active 19 - 1 tablet Orally Once a day for 30 day(s) Active SUMAtriptan Succinate 50 MG 1 tablet as needed; may re peat in 2 hours if headache persists Orally Twice a day Apr, Not-Taking Bisacodyl 5 MG 2tablet as needed Orally bid for 30 day(s) Sep, Active PROCEDURES No Information RESULTS No Results REASON FOR VISIT Liver test normal MEDICAL (GENERAL) HISTORY Type Description Date Medical History Migraines without aura Surgical History No Surgical history information Goals Section No Information Health Concerns No Information MEDICAL EQUIPMENT No Information MENTAL STATUS No Information FUNCTIONAL STATUS No Information ASSESSMENTS No Information PLAN OF TREATMENT Next Appt Details Provider Name:Sunshine Templeton, 2020-11-08 02:20:00 PM, [address] [place], , [place], [address], Insurance Providers Payer Name Payer Address Payer Phone Insured Name Patient Relati onship to Insured Coverage Start Date Coverage End Date [facility] CORPORATE CLAIMS DEPT [address] [place] [phone] [place] self
--- OUTSIDE RECORDS SUMMARY | 2020-12-31 08:33 | CCD ---
Author Author [facility] Organization [facility] Address Unknown Phone Unavailable Care Team Providers Care Development Coordinator Name Role Phone Sadie Amin Unavailable PROBLEMS Type Condition ICD9-CM Code [id number] Code Onset Dates Condition S tatus W/U Status Risk SNOMED Code Notes Problem Infertility, female N97.9 Active confirmed 6149120 Problem Slow transit constipation K59.01 Active confirmed 53062768 Problem Migraine without aura and without status migrain osus, not intractable G43.009 Active confirmed 352245041 ALLERGIES No Known Allergies ENCOUNTERS from 1997 to 2020-10-24 Encounter Location Date Provider Diagnosis [address] [phone] [place] [address] Sep, Sadie Amin IMMUNIZATIONS No Information SOCIAL HISTORY Tobacco Use: Social History Observation Description Date Details (start date - stop date) Never Smoker Sex Assigned At : Social History Observation Description Sex Assigned At Unknown Education: Question Answer Notes Level of Education: GED Language: Question Answer Notes Languages spoken: Turkmen Sabianism: Question Answer Notes Sabianism 33 None [...] Information RESULTS No Results REASON FOR VISIT MEDICAL (GENERAL) HISTORY Type Description Date Medical [...] day(s) 2020 Next Appt Details Provider Name:Sadie Tamara Amin, 2020-10-30 11:00:00 AM, [address] [place] [address], , [place], [address], Provider Name:Sunshine Templeton, 2020-11-08 02:20:00 PM, [address] [place] [address], , [place], [address], Insurance Providers Payer Name Payer Address Payer Phone Insured Name Patient Relati onship to Insured Coverage Start Date Coverage End Date [facility] CORPORATE CLAIMS DEPT [address] [facility] [phone] [place] self
--- OUTSIDE RECORDS SUMMARY | 2020-12-31 08:33 | CCD ---
Author Author [facility] Organization [facility] Address Unknown Phone Unavailable Care Team Providers Care Mission Coordinator Name Role Phone Live Ignacio Unavailable PROBLEMS Type Condition ICD9-CM Code SJF85-BW Code Onset Dates Condition S tatus W/U Status Risk SNOMED Code Notes Problem Infertility, female N97.9 Active confirmed 6803693 Problem Slow transit constipation K59.01 Active confirmed 92997241 Problem Migraine without aura and without status migrain osus, not intractable G43.009 Active confirmed 876043537 ALLERGIES No Known Allergies ENCOUNTERS from 1997 to 2020-10-09 Encounter Location Date Provider Diagnosis [facility] [address] [facility] [phone] [place] [address] Sep, Live Ignacio IMMUNIZATIONS No Information SOCIAL HISTORY Tobacco Use: Social History Observation Description Date Details (start date - stop date) Never Smoker Sex Assigned At : Social History Observation Description Sex Assigned At Unknown Education: Question Answer Notes Level of Education: GED Language: Question Answer Notes Languages spoken: Turkish Restorationist: Question Answer Notes Restorationist 33 None Domestic Violence: Question Answer Notes [...] Information RESULTS No Results REASON FOR VISIT No Information MEDICAL (GENERAL) HISTORY Type Description Date Medical [...] Provider Name:Sadie Tamara Amin, 2020-10-30 11:00:00 AM, [address] [place] [address], , [place], [address], Provider Name:Sunshine Templeton, 2020-11-08 02:20:00 PM, [address] [place] [address], , [place], [address], Insurance Providers Payer Name Payer Address Payer Phone Insured Name Patient Relati onship to Insured Coverage Start Date Coverage End Date [facility] CORPORATE CLAIMS DEPT [address] [facility] [phone] [place] self
--- OUTSIDE RECORDS SUMMARY | 2020-12-31 08:33 | CCD ---
Author Author [facility] Organization [facility] Address Unknown Phone Unavailable Care Team Providers Care Framing Manager Name Role Phone Sadie Amin Unavailable PROBLEMS Type Condition ICD9-CM Code RYD17-ND Code Onset Dates Condition S tatus W/U Status Risk SNOMED Code Notes Problem Infertility, female N97.9 Active confirmed 7533450 Problem Slow transit constipation K59.01 Active confirmed 68899937 Problem Migraine without aura and without status migrain osus, not intractable G43.009 Active confirmed 577493761 ALLERGIES No Known Allergies ENCOUNTERS from 1997 to 2020-10-12 Encounter Location Date Provider Diagnosis [address] [phone] [place] [address] Sep, Sadie Amin IMMUNIZATIONS No Information SOCIAL HISTORY Tobacco Use: Social History Observation Description Date Details (start date - stop date) Never Smoker Sex Assigned At : Social History Observation Description Sex Assigned At Unknown Education: Question Answer Notes Level of Education: GED Language: Question Answer Notes Languages spoken: Indonesian Nondenominational: Question Answer Notes Nondenominational 33 None Domestic Violence: Question Answer Notes [...] Information RESULTS No Results REASON FOR VISIT 10/11 ultrasound MEDICAL (GENERAL) HISTORY Type Description Date [...] Details Provider Name:Sadie Amin, 2020-10-30 11:00:00 AM, [address] [place] [address], , [place], [address], Provider Name:Sunshine Templeton, 2020-11-08 02:20:00 PM, [address] [place] [address], , [place], [address], Insurance Providers Payer Name Payer Address Payer Phone Insured Name Patient Relati onship to Insured Coverage Start Date Coverage End Date [facility] CORPORATE CLAIMS DEPT [address] [facility] [phone] [place] self
--- OUTSIDE RECORDS SUMMARY | 2020-12-31 08:33 | CCD ---
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 trimester O99.842 Active confirmed [id number] Problem Constipation, unspecified constipation type K59.00 Active confirmed 71515264 Problem Migraine without aura and without status migrain osus, not intractable G43.009 Active confirmed 016103101 Problem Infertility, female N97.9 Active confirmed 8370672 Problem Slow transit constipation K59.01 Active confirmed 07138762 ALLERGIES No Known Allergies ENCOUNTERS from 1997 to 2020-10-31 Encounter Location Date Provider Diagnosis [address] [phone] [place] [address] Sep, Sadie Amin Itching L29.9 ; Constipation , unspecified constipation type K59.00 and 8 weeks gestation of Z3A.08 IMMUNIZATIONS No Information SOCIAL HISTORY Tobacco Use: Social History Observation Description Date Details (start date - stop date) Never Smoker Sex Assigned At : Social History Observation Description Sex Assigned At Unknown Education: Question Answer Notes Level of Education: GED Audit Question Answer Notes Total Score: 0 Interpretation: Alcohol Education Language: Question Answer Notes Languages spoken: Urdu Baptism: Question Answer Notes Baptism 33 None Domestic Violence: Question Answer Notes [...] FOR REFERRAL No Information VITAL SIGNS Weight 127 lbs Sep, Height 5'1" in Sep, BMI 23.99 kg/m2 Sep, Heart Rate 112 /min Sep, Respiratory Rate 18 /min Sep, Temperature 97.9 degrees Fahrenheit Sep, Oximetry 100 Sep, Blood pressure systolic 120 mm Hg Sep, Blood pressure diastolic 66 mm Hg Sep, MEDICATIONS Medication SIG (Take, [...] day(s) Sep, Active PROCEDURES No Information RESULTS Component Value Reference Range Comprehensive Metabolic Profile (CMP) Reviewed date:10/30/2020 15:07:40 Interpretation: Performing Lab:[facility] [address] [facility] [id number] , ,[place] [address] GLUCOSE, FASTING 84 70-100 BLOOD UREA NITROGEN 9 7-18 CREATININE FOR GFR 0.56 0.55-1.30 GLOMERULAR FILTRATION RATE > 60.0 >60 SODIUM LEVEL 136 136-145 POTASSIUM SERUM 4.6 3.5-5.1 CHLORIDE LEVEL 106 98-107 CARBON DIOXIDE LEVEL 24 21-32 CALCIUM LEVEL 9.3 8.5-10.1 AST/SGOT 8 7-37 ALT/SGPT 19 12-78 ALKALINE PHOSPHATASE 49 45-117 BILIRUBIN,TOTAL 0.4 0.2-1.0 TOTAL PROTEIN 7.9 6.4-8.2 ALBUMIN 4.2 3.2-5.2 ALBUMIN/GLOBULIN RATIO 1.1 1.2-2.2 REASON FOR VISIT F/u constipation, MEDICAL (GENERAL) HISTORY Type Description Date Medical History Migraines without aura Surgical History No Surgical history information Goals Section No Information Health Concerns No Information MEDICAL EQUIPMENT No Information MENTAL STATUS No Information FUNCTIONAL STATUS No Information ASSESSMENTS Encounter Date Diagnosis Assessment Notes Treatment Notes Treatm ent Clinical Notes Sep, Itching (ICD-10 - L29.9) I advised that itching is common in due to changing hormone levels. She states her boyfriend is worried about a liver problem; CMP ordered today. Sep, Constipation, unspecified constipation type (ICD -10 - K59.00) Advised patient to restart Miralax daily and use Bisacodyl PRN but not daily. Diffuse abdominal pain likely related to constipation, only having a BM once a week. I recommended she increase fiber and water intake, increase intake of greeny leafy vegetables. Sep, 8 weeks gestation of (ICD-10 - Z3A.08) Scheduled to establish with OB next week; recent ultrasound yesterday in ED confirmed intrauterine . PLAN OF TREATMENT Treatment Notes Assessment Notes Clinical Notes Itching I advised that itchi ng is common in due to changing hormone levels. She states her boyfriend is worried about a liver problem; CMP ordered today. Constipation, unspecified constipation type Advised patient to restart Miralax daily and use Bisacodyl PRN but not daily. Diffuse abdominal pain likely related to constipation, only having a BM once a week. I recommended she increase fiber and water intake, increase intake of greeny leafy vegetables. 8 weeks gestation of Scheduled to establish with OB next week; recent ultrasound yesterday in ED confirmed intrauterine . Future Test Test Name Order Date Comprehensive Metabolic Profile (CMP) [id number] Next Appt Details PRN Reason: Provider Name:Sunshine Templeton, 2020-11-08 02:20:00 PM, [address] [facility], , [place], [address], Insurance Providers Payer Name Payer Address Payer Phone Insured Name Patient Relati onship to Insured Coverage Start Date Coverage End Date [facility] CORPORATE CLAIMS DEPT [address] [facility] [phone] [place] self
--- OUTSIDE RECORDS SUMMARY | 2020-12-31 08:33 | CCD ---
Author Author [facility] Organization [facility] Address Unknown Phone Unavailable Care Team Providers Care Geotechnical Operating Engineer Name Role Phone Sadie Amin Unavailable PROBLEMS Type Condition ICD9-CM Code ECT86-QL Code Onset Dates Condition S tatus W/U Status Risk SNOMED Code Notes Problem Infertility, female N97.9 Active confirmed 7806077 Problem Slow transit constipation K59.01 Active confirmed 21490855 Problem Migraine without aura and without status migrain osus, not intractable G43.009 Active confirmed 398023327 ALLERGIES No Known Allergies ENCOUNTERS from 1997 to 2020-10-12 Encounter Location Date Provider Diagnosis [address] [phone] [place] [address] Sep, Sadie Amin IMMUNIZATIONS No Information SOCIAL HISTORY Tobacco Use: Social History Observation Description Date Details (start date - stop date) Never Smoker Sex Assigned At : Social History Observation Description Sex Assigned At Unknown Education: Question Answer Notes Level of Education: GED Language: Question Answer Notes Languages spoken: Nepali Methodist: Question Answer Notes Methodist 33 None Domestic Violence: Question Answer Notes [...] Information RESULTS No Results REASON FOR VISIT Ultrasound MEDICAL (GENERAL) HISTORY Type Description Date Medical [...] Provider Name:Sadie Tamara Amin, 2020-10-30 11:00:00 AM, [address] [place] [address], , [place], [address], Provider Name:Sunshine Templeton, 2020-11-08 02:20:00 PM, [address] [place] [address], , [place], [address], Insurance Providers Payer Name Payer Address Payer Phone Insured Name Patient Relati onship to Insured Coverage Start Date Coverage End Date [facility] CORPORATE CLAIMS DEPT [address] [facility] [phone] [place] self
[2020-12-31] MEDS ORDERED: ASPI81CH33 PO (08:35)
--- OUTSIDE RECORDS SUMMARY | 2020-12-31 11:39 | CCD ---
Author Author [facility] Address Unknown Phone Unavailable Care Team Providers Care Accounts Clerk Name Role Phone Maria Esther MANDUJANO Unavailable Unavailable LETTIERE, A BAKARI PA Unavailable Unavailable LETTIERE, A BAAKRI PA Unavailable Unavailable LETTIERE, A BAKARI PA [...] is protected by Article 27-F of the [facility] Public Health law. If you continue you may have access to information: Regarding HIV / AIDS; Provided by facilities licensed or operated by the [facility] Office of Mental Health; or Provided by the [facility] Office for People With Developmental Disabilities. If such information is present, then the following [facility] mandated warning applies: This information has [...] law may result in a fine or fpc sentence or both. A general authorization for the release of medical or other information is NOT sufficient authorization for further disc losure. 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 [address] [place] [address] 12/12/2020 12:00:00 AM EDT eCW1 ([facility]) Unknown [address] [facility] [address] 12/06/2020 12:00:00 AM EDT eCW1 ([facility]) Unknown [address] [facility] [address] 12/05/2020 12:00:00 AM EDT eCW1 ([facility]) Unknown [address] [facility] [address] 11/28/2020 12:00:00 AM EDT eCW1 ([facility]) Unknown [address] [facility] [address] 11/21/2020 12:00:00 AM EDT eCW1 ([facility]) Unknown [address] [facility] [address] 11/20/2020 12:00:00 AM EDT eCW1 [facility] Outpatient [address] [facility] [address] 11/19/2020 12:00:00 AM EDT eCW1 ([facility]) Unknown [address] [facility] [address] 11/09/2020 12:00:00 AM EDT eCW1 ([facility]) [place] [address] [facility] [address] 11/08/2020 12:00:00 AM EDT eCW1 ([facility]) [place] [address] [facility] [address] 11/08/2020 12:00:00 AM EDT eCW1 ([facility]) [place]patient [address] [facility] [address] 10/30/2020 12:00:00 AM EDT eCW1 ([facility]) Unknown [address] [facility] [address] 10/30/2020 12:00:00 AM EDT eCW1 ([facility]) Unknown [address] [facility] [address] 10/23/2020 12:00:00 AM EDT eCW1 ([facility]) Unknown [address] [facility] [address] 10/12/2020 12:00:00 AM EDT eCW1 ([facility]) Unknown [address] [facility] [address] 10/12/2020 12:00:00 AM EDT eCW1 ([facility]) Unknown [address] [facility] [address] 10/11/2020 12:00:00 AM EDT eCW1 ([facility]) Unknown [address] [facility] [address] 10/10/2020 12:00:00 AM EDT eCW1 ([facility]) Outpatient [address] [facility] [address] 10/09/2020 12:00:00 AM EDT eCW1 ([facility]) Unknown [address] [facility] [address] 10/08/2020 12:00:00 AM EDT eCW1 ([facility]) Unknown [address] [facility] [address] 10/02/2020 12:00:00 AM EDT eCW1 ([facility]) Unknown [address] [facility] [address] 10/02/2020 12:00:00 AM EDT eCW1 ([facility]) Unknown [address] [facility] [address] 09/26/2020 12:00:00 AM EDT eCW1 ([facility]) Outpatient [address] [facility] [address] 08/09/2020 12:00:00 AM EDT eCW1 ([facility]) Outpatient Attender: BAKARI dodd 05/15/2020 03:00:00 PM EDT MEDENT ([facility], [facility]) Immunizations Vaccine Date Status Description Data Source(s) COVID-19 VACCINE Pfizer 08/24/2020 12:00:00 AM EDT completed [facility] Vaccine Series Complete: YESThis Data wa s Submitted to [facility] Via [facility]. COVID-19 VACC, MRNA([employer])/PF 08/03/2020 12:00:00 AM EDT completed [facility] COVID-19 VACCINE Pfizer 08/03/2020 12:00:00 AM EDT completed [facility] Vaccine Series Complete: NOThis Data was Submitted to [facility] Via [facility]. TB Skin test is not vaccine. 05/15/2020 02:35:00 PM EDT completed MEDENT ([facility], [facility]) Medications Medication Brand Name Start Date [...] AM EDT suspended miSOPROStol 200 MCG eCW1 ([facility]) Acetaminophen 325 MG / Oxycodone Hydroch loride 5 MG Oral Tablet [Percocet] Percocet 5-325 MG Percocet 5-325 MG 11/09/2020 12:00:00 AM EDT suspended Percocet 5-325 MG eCW1 (Replaced by [facility]) 5-325 mg 11/09/2020 12:00:00 AM EDT tablet [...] AM EDT suspended miSOPROStol 200 MCG eCW1 ([facility]) Misoprostol 0.2 MG Oral Tablet miSOPROStol 200 MCG miSOPROSt ol 200 MCG 11/09/2020 12:00:00 AM EDT suspended miSOPROStol 200 MCG eCW1 ([facility]) Acetaminophen 325 MG / Oxycodone Hydroch loride 5 MG Oral Tablet [Percocet] Percocet 5-325 MG Percocet 5-325 MG 11/09/2020 12:00:00 AM EDT suspended Percocet 5-325 MG eCW1 (Replaced by [facility]) Misoprostol 0.2 MG Oral Tablet miSOPROStol 200 MCG miSOPROSt ol 200 MCG 11/09/2020 12:00:00 AM EDT suspended miSOPROStol 200 MCG eCW1 ([facility]) Acetaminophen 325 MG / Oxycodone Hydroch loride 5 MG Oral Tablet [Percocet] Percocet 5-325 MG Percocet 5-325 MG 11/09/2020 12:00:00 AM EDT suspended Percocet 5-325 MG eCW1 (Replaced by [facility]) Acetaminophen 325 MG / Oxycodone Hydroch loride 5 MG Oral Tablet [Percocet] Percocet 5-325 MG Percocet 5-325 MG 11/09/2020 12:00:00 AM EDT suspended Percocet 5-325 MG eCW1 (Replaced by [facility]) Misoprostol 0.2 MG Oral Tablet miSOPROStol 200 MCG miSOPROSt ol 200 MCG 11/09/2020 12:00:00 AM EDT suspended miSOPROStol 200 MCG eCW1 ([facility]) Acetaminophen 325 MG / Oxycodone Hydroch loride 5 MG Oral Tablet [Percocet] Percocet 5-325 MG Percocet 5-325 MG 11/09/2020 12:00:00 AM EDT suspended Percocet 5-325 MG eCW1 (Replaced by [facility]) Acetaminophen 325 MG / Oxycodone Hydroch loride 5 MG Oral Tablet [Percocet] Percocet 5-325 MG Percocet 5-325 MG 11/09/2020 12:00:00 AM EDT active Percocet 5-325 MG eCW1 ([facility]) Misoprostol 0.2 MG Oral Tablet miSOPROStol 200 MCG miSOPROSt ol 200 MCG 11/09/2020 12:00:00 AM EDT suspended miSOPROStol 200 MCG eCW1 ([facility]) Acetaminophen 325 MG / Oxycodone Hydroch loride 5 MG Oral Tablet [Percocet] Percocet 5-325 MG Percocet 5-325 MG 11/09/2020 12:00:00 AM EDT suspended Percocet 5-325 MG eCW1 (Replaced by [facility]) Acetaminophen 325 MG / Oxycodone Hydroch loride 5 MG Oral Tablet [Percocet] Percocet 5-325 MG Percocet 5-325 MG 11/09/2020 12:00:00 AM EDT suspended Percocet 5-325 MG eCW1 (Replaced by [facility]) Misoprostol 0.2 MG Oral Tablet miSOPROStol 200 MCG miSOPROSt ol 200 MCG 11/09/2020 12:00:00 AM EDT suspended miSOPROStol 200 MCG eCW1 ([facility]) Misoprostol 0.2 MG Oral Tablet miSOPROStol 200 MCG miSOPROSt ol 200 MCG 11/09/2020 12:00:00 AM EDT active miSOPROStol 200 MCG eCW1 ([facility]) Misoprostol 0.2 MG Oral Tablet miSOPROStol 200 MCG miSOPROSt ol 200 MCG 11/09/2020 12:00:00 AM EDT suspended miSOPROStol 200 MCG eCW1 ([facility]) Acetaminophen 325 MG / Oxycodone Hydroch loride 5 MG Oral Tablet [Percocet] Percocet 5-325 MG Percocet 5-325 MG 11/09/2020 12:00:00 AM EDT suspended Percocet 5-325 MG eCW1 (Replaced by [facility]) Acetaminophen 325 MG / Oxycodone Hydroch loride 5 MG Oral Tablet [Percocet] Percocet 5-325 MG Percocet 5-325 MG 11/09/2020 12:00:00 AM EDT suspended Percocet 5-325 MG eCW1 (Replaced by [facility]) Acetaminophen 325 MG / Oxycodone Hydroch loride 5 MG Oral Tablet [Percocet] Percocet 5-325 MG Percocet 5-325 MG 11/09/2020 12:00:00 AM EDT suspended Percocet 5-325 MG eCW1 (Replaced by [facility]) Misoprostol 0.2 MG Oral Tablet miSOPROStol 200 MCG miSOPROSt ol 200 MCG 11/09/2020 12:00:00 AM EDT suspended miSOPROStol 200 MCG eCW1 ([facility]) Misoprostol 0.2 MG Oral Tablet miSOPROStol 200 MCG miSOPROSt ol 200 MCG 11/09/2020 12:00:00 AM EDT suspended miSOPROStol 200 MCG eCW1 ([facility]) Mineral Oil 1000 MG/ML Enema Enema 7-19 GM/118ML Enema 7-19 GM/118ML 10/09/2020 12:00:00 AM EDT suspended Enema 7-19 GM/118ML eCW1 ([facility]) Bisacodyl 5 MG UNK 10/09/2020 12:00:00 AM EDT suspended Bisacodyl 5 MG eCW1 ([facility]) Bisacodyl 5 MG UNK 10/09/2020 12:00:00 AM EDT suspended Bisacodyl 5 MG eCW1 ([facility]) Mineral Oil 1000 MG/ML Enema Enema 7-19 GM/118ML Enema 7-19 GM/118ML 10/09/2020 12:00:00 AM EDT active Enema 7- 19 GM/118ML eCW1 ([facility]) Mineral Oil 1000 MG/ML Enema Enema 7-19 GM/118ML Enema 7-19 GM/118ML 10/09/2020 12:00:00 AM EDT suspended Enema 7-19 GM/118ML eCW1 ([facility]) Mineral Oil 1000 MG/ML Enema Enema 7-19 GM/118ML Enema 7-19 GM/118ML 10/09/2020 12:00:00 AM EDT active Enema 7- 19 GM/118ML eCW1 ([facility]) Bisacodyl 5 MG UNK 10/09/2020 12:00:00 AM EDT active Bisacodyl 5 MG eCW1 ([facility]) Mineral Oil 1000 MG/ML Enema Enema 7-19 GM/118ML Enema 7-19 GM/118ML 10/09/2020 12:00:00 AM EDT active Enema 7- 19 GM/118ML eCW1 ([facility]) Bisacodyl 5 MG UNK 10/09/2020 12:00:00 AM EDT active Bisacodyl 5 MG eCW1 ([facility]) Bisacodyl 5 MG UNK 10/09/2020 12:00:00 AM EDT active Bisacodyl 5 MG eCW1 ([facility]) Bisacodyl 5 MG UNK 10/09/2020 12:00:00 AM EDT suspended Bisacodyl 5 MG eCW1 ([facility]) Mineral Oil 1000 MG/ML Enema Enema 7-19 GM/118ML Enema 7-19 GM/118ML 10/09/2020 12:00:00 AM EDT active Enema 7- 19 GM/118ML eCW1 ([facility]) Mineral Oil 1000 MG/ML Enema Enema 7-19 GM/118ML Enema 7-19 GM/118ML 10/09/2020 12:00:00 AM EDT active Enema 7- 19 GM/118ML eCW1 ([facility]) Mineral Oil 1000 MG/ML Enema Enema 7-19 GM/118ML Enema 7-19 GM/118ML 10/09/2020 12:00:00 AM EDT suspended Enema 7-19 GM/118ML eCW1 ([facility]) Mineral Oil 1000 MG/ML Enema Enema 7-19 GM/118ML Enema 7-19 GM/118ML 10/09/2020 12:00:00 AM EDT suspended Enema 7-19 GM/118ML eCW1 ([facility]) Bisacodyl 5 MG UNK 10/09/2020 12:00:00 AM EDT active Bisacodyl 5 MG eCW1 ([facility]) Bisacodyl 5 MG UNK 10/09/2020 12:00:00 AM EDT suspended Bisacodyl 5 MG eCW1 ([facility]) Mineral Oil 1000 MG/ML Enema Enema 7-19 GM/118ML Enema 7-19 GM/118ML 10/09/2020 12:00:00 AM EDT active Enema 7- 19 GM/118ML eCW1 ([facility]) Mineral Oil 1000 MG/ML Enema Enema 7-19 GM/118ML Enema 7-19 GM/118ML 10/09/2020 12:00:00 AM EDT suspended Enema 7-19 GM/118ML eCW1 ([facility]) Bisacodyl 5 MG UNK 10/09/2020 12:00:00 AM EDT active Bisacodyl 5 MG eCW1 ([facility]) Bisacodyl 5 MG UNK 10/09/2020 12:00:00 AM EDT active Bisacodyl 5 MG eCW1 ([facility]) Mineral Oil 1000 MG/ML Enema Enema 7-19 GM/118ML Enema 7-19 GM/118ML 10/09/2020 12:00:00 AM EDT suspended Enema 7-19 GM/118ML eCW1 ([facility]) Bisacodyl 5 MG UNK 10/09/2020 12:00:00 AM EDT active Bisacodyl 5 MG eCW1 ([facility]) Mineral Oil 1000 MG/ML Enema Enema 7-19 GM/118ML Enema 7-19 GM/118ML 10/09/2020 12:00:00 AM EDT active Enema 7- 19 GM/118ML eCW1 ([facility]) Mineral Oil 1000 MG/ML Enema Enema 7-19 GM/118ML Enema 7-19 GM/118ML 10/09/2020 12:00:00 AM EDT suspended Enema 7-19 GM/118ML eCW1 ([facility]) Bisacodyl 5 MG UNK 10/09/2020 12:00:00 AM EDT active Bisacodyl 5 MG eCW1 ([facility]) Mineral Oil 1000 MG/ML Enema Enema 7-19 GM/118ML Enema 7-19 GM/118ML 10/09/2020 12:00:00 AM EDT suspended Enema 7-19 GM/118ML eCW1 ([facility]) Bisacodyl 5 MG UNK 10/09/2020 12:00:00 AM EDT active Bisacodyl 5 MG eCW1 ([facility]) Mineral Oil 1000 MG/ML Enema Enema 7-19 GM/118ML Enema 7-19 GM/118ML 10/09/2020 12:00:00 AM EDT suspended Enema 7-19 GM/118ML eCW1 ([facility]) Bisacodyl 5 MG UNK 10/09/2020 12:00:00 AM EDT suspended Bisacodyl 5 MG eCW1 ([facility]) Bisacodyl 5 MG UNK 10/09/2020 12:00:00 AM EDT suspended Bisacodyl 5 MG eCW1 ([facility]) Mineral Oil 1000 MG/ML Enema Enema 7-19 GM/118ML Enema 7-19 GM/118ML 10/09/2020 12:00:00 AM EDT active Enema 7- 19 GM/118ML eCW1 ([facility]) Bisacodyl 5 MG UNK 10/09/2020 12:00:00 AM EDT active Bisacodyl 5 MG eCW1 ([facility]) 5 mg 10/09/2020 12:00:00 AM EDT tablet,delayed release (DR/EC) 120 TAKE TWO TABLETS BY MOUTH TWO TIMES A DAY NEEDED TAKE TWO TABLETS BY MOUTH TWO TIMES A DAY NEEDED SOLD: 10/09/2020 Asad Ayon ugluda Mineral Oil 1000 MG/ML Enema Enema 7-19 GM/118ML Enema 7-19 GM/118ML 10/09/2020 12:00:00 AM EDT suspended Enema 7-19 GM/118ML eCW1 ([facility]) Bisacodyl 5 MG UNK 10/09/2020 12:00:00 AM EDT suspended Bisacodyl 5 MG eCW1 ([facility]) Mineral Oil 1000 MG/ML Enema Enema 7-19 GM/118ML Enema 7-19 GM/118ML 10/09/2020 12:00:00 AM EDT active Enema 7- 19 GM/118ML eCW1 ([facility]) Bisacodyl 5 MG UNK 10/09/2020 12:00:00 AM EDT suspended Bisacodyl 5 MG eCW1 ([facility]) Bisacodyl 5 MG UNK 10/09/2020 12:00:00 AM EDT suspended Bisacodyl 5 MG eCW1 ([facility]) Mineral Oil 1000 MG/ML Enema Enema 7-19 GM/118ML Enema 7-19 GM/118ML 10/09/2020 12:00:00 AM EDT active Enema 7- 19 GM/118ML eCW1 ([facility]) Bisacodyl 5 MG UNK 10/09/2020 12:00:00 AM EDT suspended Bisacodyl 5 MG eCW1 ([facility]) Amitriptyline Hydrochloride 10 MG Oral Tablet Amitript yline HCl 10 MG Amitriptyline HCl 10 MG 08/09/2020 12:00:00 AM EDT 1.0 {tablet_at_b edtime} active Amitriptyline HCl 10 MG e CW1 ([facility]) Amitriptyline Hydrochloride 10 MG Oral Tablet Amitript yline HCl 10 MG Amitriptyline HCl 10 MG 08/09/2020 12:00:00 AM EDT 1.0 {tablet_at_b edtime} suspended Amitriptyline HCl 10 MG e CW1 ([facility]) Amitriptyline Hydrochloride 10 MG Oral Tablet Amitript yline HCl 10 MG Amitriptyline HCl 10 MG 08/09/2020 12:00:00 AM EDT 1.0 {tablet_at_b edtime} active Amitriptyline HCl 10 MG e CW1 ([facility]) Amitriptyline Hydrochloride 10 MG Oral Tablet Amitript yline HCl 10 MG Amitriptyline HCl 10 MG 08/09/2020 12:00:00 AM EDT 1.0 {tablet_at_b edtime} active Amitriptyline HCl 10 MG e CW1 ([facility]) Amitriptyline Hydrochloride 10 MG Oral Tablet Amitript yline HCl 10 MG Amitriptyline HCl 10 MG 08/09/2020 12:00:00 AM EDT 1.0 {tablet_at_b edtime} active Amitriptyline HCl 10 MG e CW1 ([facility]) Amitriptyline Hydrochloride 10 MG Oral Tablet Amitript yline HCl 10 MG Amitriptyline HCl 10 MG 08/09/2020 12:00:00 AM EDT 1.0 {tablet_at_b edtime} active Amitriptyline HCl 10 MG e CW1 ([facility]) Amitriptyline Hydrochloride 10 MG Oral Tablet Amitript yline HCl 10 MG Amitriptyline HCl 10 MG 08/09/2020 12:00:00 AM EDT 1.0 {tablet_at_b edtime} active Amitriptyline HCl 10 MG e CW1 ([facility]) Amitriptyline Hydrochloride 10 MG Oral Tablet Amitript yline HCl 10 MG Amitriptyline HCl 10 MG 08/09/2020 12:00:00 AM EDT 1.0 {tablet_at_b edtime} suspended Amitriptyline HCl 10 MG e CW1 ([facility]) Amitriptyline Hydrochloride 10 MG Oral Tablet Amitript yline HCl 10 MG Amitriptyline HCl 10 MG 08/09/2020 12:00:00 AM EDT 1.0 {tablet_at_b edtime} active Amitriptyline HCl 10 MG e CW1 ([facility]) 10 mg 08/09/2020 12:00:00 AM EDT tablet 30 TAKE ONE TABLET BY MOUTH EVERY DAY AT BEDTIME TAKE ONE TABLET BY MOUTH EVERY DAY AT BEDTIME SOLD: 08/10/2020 [facility] Amitriptyline Hydrochloride 10 MG Oral Tablet Amitript yline HCl 10 MG Amitriptyline HCl 10 MG 08/09/2020 12:00:00 AM EDT 1.0 {tablet_at_b edtime} active Amitriptyline HCl 10 MG e 1 ([facility]) Amitriptyline Hydrochloride 10 MG Oral Tablet Amitript yline HCl 10 MG Amitriptyline HCl 10 MG 08/09/2020 12:00:00 AM EDT 1.0 {tablet_at_b edtime} active Amitriptyline HCl 10 MG e 1 ([facility]) Amitriptyline Hydrochloride 10 MG Oral Tablet Amitript yline HCl 10 MG Amitriptyline HCl 10 MG 08/09/2020 12:00:00 AM EDT 1.0 {tablet_at_b edtime} active Amitriptyline HCl 10 MG e CW1 ([facility]) Amitriptyline Hydrochloride 10 MG Oral Tablet Amitript yline HCl 10 MG Amitriptyline HCl 10 MG 08/09/2020 12:00:00 AM EDT 1.0 {tablet_at_b edtime} suspended Amitriptyline HCl 10 MG e 1 ([facility]) Amitriptyline Hydrochloride 10 MG Oral Tablet Amitript yline HCl 10 MG Amitriptyline HCl 10 MG 08/09/2020 12:00:00 AM EDT 1.0 {tablet_at_b edtime} active Amitriptyline HCl 10 MG e 1 ([facility]) 150 mg 07/07/2020 12:00:00 AM EDT tablet [...] type / Coverage type Policy ID Covered alliance party ID Covered alliance party's relationship to [place] Policy [place] Plan Information Medicaid S [id number] S [id number] Medicaid Dental S [id number] S [id number] Managed Care - Community Plan [facility] P [id number] S [id number] D Managed Care [facility] P [id number] S [id number] Managed Care Community Plan [facility] P [id number] S [id number] Medicaid S [id number] S [id number] Managed Care - Community Plan [facility] P [id number] S [id number] Medicaid S [id number] S [id number] Managed Care [facility] Community Plan P [id number] S [id number] Managed Care - Community Plan [facility] P [id number] S [id number] [facility] [id number] Self Pay O [id number] S [id number] [facility] [id number] SP [id number] [facility] [id number] 2 [id number] [facility] [id number] [facility] [id number] [facility] [id number] SP [id number] [facility] [id number] SP [id number] MEDICAID [id number] SP [id number] [facility] [id number] Problems, Conditions, and Diagnoses Code Display Name Description Problem Type Effective Dates Data Source(s) N92.6 Irregular periods Irregular bleeding Problem 12/28/2020 12:00:00 AM EDT eCW1 ([facility]) Z34.80 care Supervision of other normal Kristen carvajal 11/06/2020 12:00:00 AM EDT eCW1 ([facility]) K59.00 [id number] Constipation, unspecified constipation ty pe Problem 10/30/2020 12:00:00 AM EDT eCW1 ([facility]) O99.842 [id number] affected b y previous bariatric surgery, currently in second trimester Problem 10/30/2020 12:00:00 AM EDT eCW 1 ([facility]) K59.01 [id number] Slow transit constipation Problem 10/09/2020 12:00:00 AM EDT eCW1 ([facility]) N97.9 [id number] Infertility, female Problem 08/09/2020 12:00 :00 AM EDT eCW1 ([facility]) Surgeries/Procedures Procedure Description Date Indications Data Source(s) Medication: 2% Lidocaine intradermal 12/12/2020 12:00: 00 AM EDT eCW1 ([facility]) Results ID Date Data Source Type and Screen Prenatal1 11/26/2020 12:00:00 AM EDT eCW1 ([facility]) Name Value Range Interpretation Code Description Data Kati rce(s) Supporting Document(s) NEGATIVE AB SCREEN PNP1 GEL (VIS) eCW1 ([facility]) ID Date Data Source HCG, SERUM QUANTITATIVE 11/19/2020 12:00:00 AM EDT eCW1 ([facility]) Name Value Range Interpretation Code Description Data Kati rce(s) Supporting Document(s) 5411 HCG, SERUM QUANTITATIVE eCW1 ( [facility]) ID Date Data Source CBC - Complete Blood Count 11/08/2020 12:00:00 AM EDT eCW1 ( [facility]) Name Value Range Interpretation Code Description Data Kati rce(s) Supporting Document(s) 10.4 4.0-10.0 WHITE BLOOD COUNT eCW1 ([facility]) 10.7 12.0-15.5 HEMOGLOBIN eCW1 ([facility]) 3.82 4.00-5.40 RED BLOOD COUNT eCW1 (Replaced by [facility]) 86.6 80.0-96.0 MEAN CORPUSCULAR VOLUME e CW1 ([facility]) 33.1 36.0-47.0 HEMATOCRIT eCW1 ([facility]) 28.0 27.0-33.0 MEAN CORPUSCULAR HEMOGLOB IN eCW1 ([facility]) 32.3 32.0-36.5 MEAN CORPUSCULAR HGB CONC eCW1 ([facility]) 12.2 11.5-14.5 RED CELL DISTRIBUTION WID TH eCW1 ([facility]) 383 150-450 PLATELET COUNT, AUTOMATED eCW1 ([facility]) ID Date Data Source Type and Screen (D Rh Antibody Screen) 11/08/2020 12:00:00 A M EDT eCW1 ([facility]) Name Value Range Interpretation Code Description Data Kati rce(s) Supporting Document(s) B POSITIVE BLOOD TYPE eCW1 ([facility]) NEGATIVE AB SCREEN (INDIRECT COOMB S)VIS eCW1 ([facility]) ID Date Data Source Comprehensive Metabolic Profile (CMP) 10/30/2020 12:00:00 AM EDT eCW1 ([facility]) Name Value Range Interpretation Code Description Data Kati rce(s) Supporting Document(s) 9 7-18 BLOOD UREA NITROGEN eCW1 ([facility]) 84 70-100 GLUCOSE, FASTING eCW1 ([facility]) 0.56 0.55-1.30 CREATININE FOR GFR eCW1 ([facility]) > 60.0 >60 GLOMERULAR FILTRATION RATE eCW 1 ([facility]) 4.6 3.5-5.1 POTASSIUM SERUM eCW1 (Replaced by [facility]) 136 136-145 SODIUM LEVEL eCW1 ([facility]) 106 98-107 CHLORIDE LEVEL eCW1 ([facility]) 9.3 8.5-10.1 CALCIUM LEVEL eCW1 ([facility]) 24 21-32 CARBON DIOXIDE LEVEL eCW1 ([facility]) 49 45-117 ALKALINE PHOSPHATASE eCW1 ([facility]) 8 7-37 AST/SGOT eCW1 ([facility]) 19 12-78 ALT/SGPT eCW1 ([facility]) 4.2 3.2-5.2 ALBUMIN eCW1 ([facility]) 0.4 0.2-1.0 BILIRUBIN,TOTAL eCW1 (Replaced by [facility]) 7.9 6.4-8.2 TOTAL PROTEIN eCW1 ([facility]) 1.1 1.2-2.2 ALBUMIN/GLOBULIN RATIO eCW1 ([facility]) Procedure Social History Code Duration Value Status Description Data Source(s ) Smoking 12/12/2020 12:00:00 AM EDT Never Smoker completed Never S moker eCW1 ([facility]) Smoking 12/12/2020 12:00:00 AM EDT Never Smoker completed Never S moker eCW1 ([facility]) Smoking 11/19/2020 12:00:00 AM EDT Never Smoker completed Never S moker eCW1 ([facility]) Smoking 11/19/2020 12:00:00 AM EDT Never Smoker completed Never S moker eCW1 ([facility]) Smoking 11/19/2020 12:00:00 AM EDT Never Smoker completed Never S moker eCW1 ([facility]) Smoking 11/19/2020 12:00:00 AM EDT Never Smoker completed Never S moker eCW1 ([facility]) Smoking 11/19/2020 12:00:00 AM EDT Never Smoker completed Never S moker eCW1 ([facility]) Smoking 11/19/2020 12:00:00 AM EDT Never Smoker completed Never S moker eCW1 ([facility]) Smoking 11/19/2020 12:00:00 AM EDT Never Smoker completed Never S moker eCW1 ([facility]) Smoking 11/19/2020 12:00:00 AM EDT Never Smoker completed Never S moker eCW1 ([facility]) Smoking 11/08/2020 12:00:00 AM EDT Never Smoker completed Never S moker eCW1 ([facility]) Smoking 10/30/2020 12:00:00 AM EDT Never Smoker completed Never S moker eCW1 ([facility]) Smoking 10/30/2020 12:00:00 AM EDT Never Smoker completed Never S moker eCW1 ([facility]) Smoking 10/09/2020 12:00:00 AM EDT Never Smoker completed Never S moker eCW1 ([facility]) Smoking 10/09/2020 12:00:00 AM EDT Never Smoker completed Never S moker eCW1 ([facility]) Smoking 10/09/2020 12:00:00 AM EDT Never Smoker completed Never S moker eCW1 ([facility]) Smoking 10/09/2020 12:00:00 AM EDT Never Smoker completed Never S moker eCW1 ([facility]) Smoking 10/09/2020 12:00:00 AM EDT Never Smoker completed Never S moker eCW1 ([facility]) Smoking 10/09/2020 12:00:00 AM EDT Never Smoker completed Never S moker eCW1 ([facility]) Smoking 10/09/2020 12:00:00 AM EDT Never Smoker completed Never S moker eCW1 ([facility]) Smoking 10/01/2020 12:00:00 AM EDT Never Smoker completed Never S moker eCW1 ([facility]) Smoking 10/01/2020 12:00:00 AM EDT Never Smoker completed Never S moker eCW1 ([facility]) Smoking 08/09/2020 12:00:00 AM EDT Never Smoker completed Never S moker eCW1 ([facility]) Smoking 08/09/2020 12:00:00 AM EDT Never Smoker completed Never S moker eCW1 ([facility]) Vital Signs ID Date Data Source UNK Name Value Range Interpretation Code Description Data Source(s) Body weight 129.8 [lb_av] 129.8 [lb_av] eCW1 ([facility]) Body height 61 [in_i] 61 [in_i] eCW1 (Formerly [facility]) Body mass index (BMI) [Ratio] 24.52 kg/m2 24.52 kg/m2 eCW1 ([facility]) Systolic blood pressure 108 mm[Hg] 108 mm[Hg] e CW1 ([facility]) Diastolic blood pressure 70 mm[Hg] 70 mm[Hg] eCW1 ([facility]) Body weight 127.2 [lb_av] 127.2 [lb_av] eCW1 ([facility]) Body height 61 [in_i] 61 [in_i] eCW1 ([facility]) Body mass index (BMI) [Ratio] 24.03 kg/m2 24.03 kg/m2 eCW1 ([facility]) Systolic blood pressure 114 mm[Hg] 114 mm[Hg] e CW1 ([facility]) Diastolic blood pressure 68 mm[Hg] 68 mm[Hg] eCW1 ([facility]) Body weight 127.6 [lb_av] 127.6 [lb_av] eCW1 ([facility]) Body height 61 [in_i] 61 [in_i] eCW1 ([facility]) Body mass index (BMI) [Ratio] 24.11 kg/m2 24.11 kg/m2 eCW1 ([facility]) Systolic blood pressure 118 mm[Hg] 118 mm[Hg] e CW1 ([facility]) Diastolic blood pressure 74 mm[Hg] 74 mm[Hg] eCW1 ([facility]) Body weight 127 [lb_av] 127 [lb_av] eCW1 (Formerly [facility]) Body height [in_i] eCW1 ([facility]) Body mass index (BMI) [Ratio] 23.99 kg/m2 23.99 kg/m2 eCW1 ([facility]) Heart rate 112 /min 112 /min eCW1 (Replaced by [facility]) Respiratory rate 18 /min 18 /min eCW1 ([facility], [facility]) Body temperature 97.9 [degF] 97.9 [degF] eCW1 ( [facility]) Systolic blood pressure 120 mm[Hg] 120 mm[Hg] e CW1 ([facility]) Diastolic blood pressure 66 mm[Hg] 66 mm[Hg] eCW1 ([facility]) Body weight 128 [lb_av] 128 [lb_av] eCW1 (Formerly [facility]) Body height [in_i] eCW1 ([facility]) Body mass index (BMI) [Ratio] 24.18 kg/m2 24.18 kg/m2 eCW1 ([facility]) Heart rate 102 /min 102 /min eCW1 (Replaced by [facility]) Respiratory rate 18 /min 18 /min eCW1 ([facility], [facility]) Body temperature 98.0 [degF] 98.0 [degF] eCW1 ( [facility]) Systolic blood pressure 100 mm[Hg] 100 mm[Hg] e CW1 ([facility]) Diastolic blood pressure 60 mm[Hg] 60 mm[Hg] eCW1 ([facility]) Body weight 132 [lb_av] 132 [lb_av] eCW1 ([facility]ly [facility]) Body height [in_i] eCW1 ([facility]) Body mass index (BMI) [Ratio] 24.94 kg/m2 24.94 kg/m2 eCW1 ([facility]) Heart rate 82 /min 82 /min eCW1 (Replaced by [facility]) Respiratory rate 18 /min 18 /min eCW1 ([facility], [facility]) Body temperature 97.2 [degF] 97.2 [degF] eCW1 ( [facility]) Systolic blood pressure 120 mm[Hg] 120 mm[Hg] e CW1 ([facility]) Diastolic blood pressure 70 mm[Hg] 70 mm[Hg] eCW1 ([facility]) Systolic blood pressure 118 mm[Hg] 118 mm[Hg] M EDENT ([facility], [facility]) Diastolic blood pressure 74 mm[Hg] 74 mm[Hg] MEDENT ([facility], [facility]) Heart rate 68 /min 68 /min MEDENT ([facility], [facility]) Respiratory rate 14 /min 14 /min [facility] ( [facility]) Oxygen saturation in Arterial blood by Pulse oximetry 99 % 99 % [facility] ([facility]) Body temperature 98.4 [degF] 98.4 [degF] MEDENT ([facility]) Body weight 130.00 [lb_av] 130.00 [lb_av] MEDEN T ([facility]) Body height 61 [in_i] 61 [in_i] [facility] ([facility]) 5'1" Body mass index (BMI) [Ratio] 24.6 kg/m2 24.6 k g/m2 [facility] ([facility]) Patient Treatment Plan of Care Planned Activity Planned Date Details Description Data Source (s) Acetaminophen 325 MG / Oxycodone Hydrochloride 5 MG Or al Tablet [Percocet] 11/09/2020 12:00:00 AM EDT eCW1 ([facility]) Misoprostol 0.2 MG Oral Tablet 11/09/2020 12:00:00 AM EDT eCW1 ([facility]) Mineral Oil 1000 MG/ML Enema 10/09/2020 12:00:00 AM EDT eCW1 ([facility]) Bisacodyl 5 MG 10/09/2020 12:00:00 AM EDT eCW1 ([facility]) Mineral Oil 1000 MG/ML Enema 10/09/2020 12:00:00 AM EDT eCW1 ([facility]) Bisacodyl 5 MG 10/09/2020 12:00:00 AM EDT eCW1 ([facility]) Mineral Oil 1000 MG/ML Enema 10/09/2020 12:00:00 AM EDT eCW1 ([facility]) Bisacodyl 5 MG 10/09/2020 12:00:00 AM EDT eCW1 ([facility]) Mineral Oil 1000 MG/ML Enema 10/09/2020 12:00:00 AM EDT eCW1 ([facility]) Bisacodyl 5 MG 10/09/2020 12:00:00 AM EDT eCW1 ([facility]) Mineral Oil 1000 MG/ML Enema 10/09/2020 12:00:00 AM EDT eCW1 ([facility]) Bisacodyl 5 MG 10/09/2020 12:00:00 AM EDT eCW1 ([facility]) Mineral Oil 1000 MG/ML Enema 10/09/2020 12:00:00 AM EDT eCW1 ([facility]) Bisacodyl 5 MG 10/09/2020 12:00:00 AM EDT eCW1 ([facility]) Mineral Oil 1000 MG/ML Enema 10/09/2020 12:00:00 AM EDT eCW1 ([facility]) Bisacodyl 5 MG 10/09/2020 12:00:00 AM EDT eCW1 ([facility]) Amitriptyline Hydrochloride 10 MG Oral Tablet 08/09/2020 12:00:00 A M EDT eCW1 ([facility]) Amitriptyline Hydrochloride 10 MG Oral Tablet 08/09/2020 12:00:00 A M EDT eCW1 ([facility]) Amitriptyline Hydrochloride 10 MG Oral Tablet 08/09/2020 12:00:00 A M EDT eCW1 ([facility]) Amitriptyline Hydrochloride 10 MG Oral Tablet 08/09/2020 12:00:00 A M EDT eCW1 ([facility]) Amitriptyline Hydrochloride 10 MG Oral Tablet 08/09/2020 12:00:00 A M EDT eCW1 ([facility]) Amitriptyline Hydrochloride 10 MG Oral Tablet 08/09/2020 12:00:00 A M EDT eCW1 ([facility]) Amitriptyline Hydrochloride 10 MG Oral Tablet 08/09/2020 12:00:00 A M EDT eCW1 ([facility]) Amitriptyline Hydrochloride 10 MG Oral Tablet 08/09/2020 12:00:00 A M EDT eCW1 ([facility]) Amitriptyline Hydrochloride 10 MG Oral Tablet 08/09/2020 12:00:00 A M EDT eCW1 ([facility]) Amitriptyline Hydrochloride 10 MG Oral Tablet 08/09/2020 12:00:00 A M EDT eCW1 ([facility]) Amitriptyline Hydrochloride 10 MG Oral Tablet 08/09/2020 12:00:00 A M EDT eCW1 ([facility])
[2020-12-31 12:20] LABS: BASO % 0.4 % (0.0-1.0); EOS # 0.1 10^3/uL (0.0-0.5); EOS % 1.1 % (0.0-3.0); HEMATOCRIT 32.3 % (36.0-47.0); HEMOGLOBIN 10.2 g/dl (12.0-15.5); LYMPH # 2.1 10^3/uL (1.5-5.0); LYMPH % 39.1 % (24.0-44.0); MEAN CORPUSCULAR HEMOGLOBIN 27.8 pg (27.0-33.0); MEAN CORPUSCULAR HGB CONC 31.6 g/dl (32.0-36.5); MONO # 0.3 10^3/uL (0.0-0.8); MONO % 5.3 % (2.0-8.0); NEUTROPHILS # 2.8 10^3/uL (1.5-8.5); NEUTROPHILS % 53.9 % (36.0-66.0); PLATELET COUNT, AUTOMATED 440 10^3/uL (150-450); RED BLOOD COUNT 3.67 10^6/uL (4.00-5.40); WHITE BLOOD COUNT 5.2 10^3/uL (4.0-10.0)
[2020-12-31] MEDS ORDERED: MORPHINE 4 MG/ML 1ML VIAL/SYRINGE (J2270) IV ONE (12:30)
[2020-12-31] MEDS ORDERED: NS 1,000 ML IV ONE (12:30)
[2020-12-31] MEDS ORDERED: ONDANSETRON 4MG/2ML VIAL IV ONE (12:30)
[2020-12-31 12:32] LABS: INR 1.13
[2020-12-31 12:33] LABS: PARTIAL THROMBOPLASTIN TIME 38.1 SECONDS (25.9-37.0)
[2020-12-31 12:42] LABS: ALBUMIN 3.7 GM/DL (3.2-5.2); BILIRUBIN,DIRECT 0.1 MG/DL (0.0-0.2); BILIRUBIN,TOTAL 0.4 MG/DL (0.2-1.0); TOTAL PROTEIN 7.3 GM/DL (6.4-8.2)
--- NOTE | 2020-12-31 13:44 | REP ---
INDICATION: vag bleeding heavy, D. COMPARISON: First trimester OB ultrasound 12/13/2019 TECHNIQUE: Transabdominal and endovaginal probes. Beta HCG 21. FINDINGS: Bladder was empty on the transabdominal images. Uterus is anteverted and measures 8.5 x 3.3 x 5 cm. On Ev probe endometrial thickness is up to 3.5 mm. There is no abnormal soft tissue appearance to suggest retained products of conception. No abnormal color flow in or near the endometrial cavity. No uterine contour abnormality or mass identified. The right ovary is 2.5 x 2.2 x 1.6 cm with color Doppler showing resistive index 0.6. The left ovary is 2.4 x 1.4 x 2 cm with color Doppler showing resistive index 0.57. No adnexal mass or adjacent free fluid. No fluid in the cul-de-sac. IMPRESSION: No uterine mass, contour abnormality or ultrasound evidence for retained products of conception. Thin endometrial stripe at 3.5 mm. No adnexal mass or pelvic free fluid. No torsion. Negative exam. <Electronically signed by Garfield Mackey > 12/31/20 [id number]
[2020-12-31] MEDS ORDERED: FERR325T3 PO (14:15)
[2020-12-31 14:39] VITALS: BP 112/59
== END 2020-12-31 15:13 | disposition home or self-care (01) ==
LOC: M ED 08:25
DX: O03.9 Complete or unspecified spontaneous abortion without complication (principal); N92.0 Excessive and frequent menstruation with regular cycle; N93.8 Other specified abnormal uterine and vaginal bleeding
CPT/HCPCS: 76830; 76856; 80047; 80076; 84702; 85025; 85610; 85730; 86850; 86900; 86901; 93976; 96361; 96374; 96375; 99284; J2270; J2405

== ENCOUNTER → 2021-02-04 | Outpatient (CLI) | payer OTHER ==
[~2021-02-04] MED LIST changes: +ASPI81CH33 PO; +FERR325T3 PO
== END ==
LOC: M PLALAB 13:02
PROVIDERS: ATTEND Advanced Practice Midwife
DX: Z34.90 Encounter for supervision of normal pregnancy, unspecified, unspecified trimester (principal); Z3A.00 Weeks of gestation of pregnancy not specified

== ENCOUNTER → 2021-02-06 | Outpatient (CLI) | payer OTHER | LOC: M PLALAB 10:56 | PROVIDERS: ATTEND Advanced Practice Midwife | DX: Z34.90 Encounter for supervision of normal pregnancy, unspecified, unspecified trimester (principal) ==

== ENCOUNTER 2021-02-14 09:02 | Emergency (ER) | payer OTHER ==
[~2021-02-14] VITALS: Ht 154.9 cm; Wt 58.4 kg
[2021-02-14] MEDS ORDERED: NS 1,000 ML IV ONE (09:40)
[2021-02-14 09:55] LABS: BASO % 0.5 % (0.0-1.0); EOS % 0.6 % (0.0-3.0); HEMATOCRIT 31.5 % (36.0-47.0); HEMOGLOBIN 10.2 g/dl (12.0-15.5); LYMPH # 2.3 10^3/uL (1.5-5.0); LYMPH % 36.6 % (24.0-44.0); MEAN CORPUSCULAR HEMOGLOBIN 27.9 pg (27.0-33.0); MEAN CORPUSCULAR HGB CONC 32.4 g/dl (32.0-36.5); MEAN CORPUSCULAR VOLUME 86.1 fl (80.0-96.0); MONO # 0.4 10^3/uL (0.0-0.8); MONO % 5.6 % (2.0-8.0); NEUTROPHILS # 3.5 10^3/uL (1.5-8.5); NEUTROPHILS % 56.5 % (36.0-66.0); PLATELET COUNT, AUTOMATED 342 10^3/uL (150-450); RED BLOOD COUNT 3.66 10^6/uL (4.00-5.40); WHITE BLOOD COUNT 6.2 10^3/uL (4.0-10.0)
[2021-02-14] MEDS ORDERED: ACETAMINOPHEN TAB 650MG DOSE (2X325MG) PO ONE (13:00)
[2021-02-14 13:39] VITALS: BP 113/63
[2021-02-14 15:28] LABS: GC DNA AMPLIFICATION NEGATIVE (NEGATIVE)
== END 2021-02-14 13:50 | disposition home or self-care (01) ==
LOC: M ED 09:02
DX: O26.891 Other specified pregnancy related conditions, first trimester (principal); R10.31 Right lower quadrant pain; M54.50 Low back pain, unspecified; Z3A.01 Less than 8 weeks gestation of pregnancy

== ENCOUNTER → 2021-02-27 | Outpatient (CLI) | payer OTHER ==
--- NOTE | 2021-02-27 14:54 | REP ---
INDICATION: LESS THAN 8 WEEKS GESTATION OF COMPARISON: 02/14/2021 TECHNIQUE: Transabdominal and transvaginal 1st trimester obstetrical ultrasound with color Doppler evaluation. FINDINGS: Single live early intrauterine is appreciated. Gestational sac with yolk sac and pole identified. [place]-rump length of 10 mm corresponds to 7 weeks 1 day gestational age with estimated date of delivery 10/15/2021. heart rate equals 141 beats per minute. A small subchorionic hemorrhages identified measuring 18 x 12 x 4 mm. Small 8 x 6 x 6 mm chorionic bump noted. Left corpus luteal cyst noted. IMPRESSION: 1. Single live early intrauterine at 7 weeks 1 day gestational age. 2. Complete anatomical assessment should be performed and 19-20 weeks. 3. Small subchorionic hemorrhage and possible small chorionic bump noted. <Electronically signed by Marck Perez > 02/27/21 [id number]
== END ==
LOC: M WHC 13:41
PROVIDERS: ATTEND Obstetrics & Gynecology
DX: O36.8911 Maternal care for other specified fetal problems, first trimester, fetus 1 (principal); O26.891 Other specified pregnancy related conditions, first trimester; N83.12 Corpus luteum cyst of left ovary; Z3A.01 Less than 8 weeks gestation of pregnancy

== ENCOUNTER 2021-03-16 08:29 | Emergency (ER) | payer OTHER ==
[~2021-03-16] VITALS: Ht 154.9 cm; Wt 59.8 kg
[2021-03-16] MEDS ORDERED: PREN27TA3 PO (09:26)
[2021-03-16] MEDS ORDERED: POLY510P14 PO (09:26)
[2021-03-16 09:48] LABS: BASO % 0.3 % (0.0-1.0); EOS % 0.4 % (0.0-3.0); HEMOGLOBIN 9.6 g/dl (12.0-15.5); LYMPH % 28.2 % (24.0-44.0); MEAN CORPUSCULAR HGB CONC 33.1 g/dl (32.0-36.5); MEAN CORPUSCULAR VOLUME 84.5 fl (80.0-96.0); MONO # 0.5 10^3/uL (0.0-0.8); MONO % 6.3 % (2.0-8.0); NEUTROPHILS # 4.6 10^3/uL (1.5-8.5); NEUTROPHILS % 64.4 % (36.0-66.0); PLATELET COUNT, AUTOMATED 294 10^3/uL (150-450); RED BLOOD COUNT 3.43 10^6/uL (4.00-5.40); WHITE BLOOD COUNT 7.1 10^3/uL (4.0-10.0)
[2021-03-16 10:45] LABS: ALBUMIN 3.4 GM/DL (3.2-5.2); ALT/SGPT 20 U/L (12-78); BILIRUBIN,DIRECT < 0.1 MG/DL (0.0-0.2); BILIRUBIN,TOTAL < 0.1 MG/DL (0.2-1.0); BLOOD UREA NITROGEN 7 MG/DL (7-18); CALCIUM LEVEL 8.2 MG/DL (8.5-10.1); CARBON DIOXIDE LEVEL 22 MEQ/L (21-32); CHLORIDE LEVEL 109 MEQ/L (98-107); CREATININE FOR GFR 0.51 MG/DL (0.55-1.30); GLOMERULAR FILTRATION RATE > 60.0 (>60); GLUCOSE, FASTING 81 MG/DL (70-100); HCG, SERUM QUANTITATIVE 118742 MIU/ML; POTASSIUM SERUM 4.2 MEQ/L (3.5-5.1); SODIUM LEVEL 137 MEQ/L (136-145); TOTAL PROTEIN 6.6 GM/DL (6.4-8.2)
[2021-03-16] MEDS ORDERED: MOM 30ML SUSPENSION UDC PO ONE (10:55)
[2021-03-16] MEDS ORDERED: MILKSUS3 PO (11:43)
[2021-03-16 11:48] VITALS: BP 111/64
== END 2021-03-16 11:51 | disposition home or self-care (01) ==
LOC: M ED 08:29
DX: O99.611 Diseases of the digestive system complicating pregnancy, first trimester (principal); K59.00 Constipation, unspecified; O20.8 Other hemorrhage in early pregnancy; Z3A.09 9 weeks gestation of pregnancy; Z79.899 Other long term (current) drug therapy

== ENCOUNTER → 2021-04-09 | Outpatient (CLI) | payer OTHER ==
[~2021-04-09] MED LIST changes: +MILKSUS3 PO; +POLY510P14 PO; +PREN27TA3 PO
== END ==
LOC: M PLALAB 12:17
PROVIDERS: ATTEND Specialist
DX: Z34.81 Encounter for supervision of other normal pregnancy, first trimester (principal)

== ENCOUNTER → 2021-05-09 | Outpatient (CLI) | payer OTHER | LOC: M WHC 15:09 | PROVIDERS: ATTEND Advanced Practice Midwife | DX: Z34.82 Encounter for supervision of other normal pregnancy, second trimester (principal) ==

== ENCOUNTER 2021-07-08 10:07 | Outpatient (CLI) | payer OTHER ==
[~2021-07-08] VITALS: Ht 154.9 cm; Wt 63.9 kg
[2021-07-08 10:29] VITALS: BP 115/65
[2021-07-08] MEDS ORDERED: ASPI81TA26 PO (10:32)
[2021-07-08] MEDS ORDERED: HOME MED LIST COMPLETE! XX SCH (10:35)
[2021-07-08 11:20] LABS: APPEARANCE, URINE CLEAR (CLEAR); BACTERIA, URINE AUTO 1+ (NEGATIVE); BILIRUBIN, URINE AUTO NEGATIVE (NEGATIVE); BLOOD, URINE BLOOD NEGATIVE (NEGATIVE); COLOR, URINE STRAW (YELLOW); GLUCOSE, URINE (UA) AUTO NEGATIVE (NEGATIVE); KETONE, URINE AUTO TRACE mg/dL (NEGATIVE); LEUKOCYTE ESTERASE, URINE AUTO NEGATIVE (NEGATIVE); NITRITE, URINE AUTO NEGATIVE (NEGATIVE); PROTEIN, URINE AUTO NEGATIVE (NEGATIVE); RBC, URINE AUTO 0 /HPF (0-3); SPECIFIC GRAVITY URINE AUTO 1.003 (1.002-1.035); SQUAMOUS EPITHELIAL CELL UR AU 0 /HPF (0-6); UROBILINOGEN, URINE AUTO 0.2 mg/dL (0.0-2.0); WBC, URINE AUTO 0 /HPF (0-3)
[2021-07-08] MEDS ORDERED: CYCL5TAB PO (11:49)
[2021-07-08] MEDS ORDERED: MACR100C43 PO (11:49)
[2021-07-08 11:56] VITALS: BP 110/66
== END 2021-07-08 12:00 | disposition home or self-care (01) ==
LOC: M LDO 10:07 → M LDI 10:08 → UNDOADMIN 10:08 → EDSTATUS 10:18 → M LDO 12:00
PROVIDERS: ATTEND Obstetrics & Gynecology
DX: O26.892 Other specified pregnancy related conditions, second trimester (principal); M54.50 Low back pain, unspecified; Z3A.25 25 weeks gestation of pregnancy; O23.42 Unspecified infection of urinary tract in pregnancy, second trimester; N39.0 Urinary tract infection, site not specified
CPT/HCPCS: 81001; 87086; G0378; G0463

== ENCOUNTER 2021-08-25 15:49 | Outpatient (CLI) | payer OTHER ==
[~2021-08-25] VITALS: Ht 154.9 cm; Wt 68.1 kg
[~2021-08-25 15:49] MED LIST changes: +ASPI81TA26 PO; +CYCL5TAB PO; +MACR100C43 PO
[2021-08-25 16:08] VITALS: BP 109/66
[2021-08-25] MEDS ORDERED: PREN1CHW6 PO (16:10)
== END 2021-08-25 16:50 | disposition home or self-care (01) ==
LOC: M LDO 15:49
PROVIDERS: ATTEND Obstetrics & Gynecology
DX: O26.893 Other specified pregnancy related conditions, third trimester (principal); N89.8 Other specified noninflammatory disorders of vagina; Z3A.32 32 weeks gestation of pregnancy; O99.013 Anemia complicating pregnancy, third trimester; D50.9 Iron deficiency anemia, unspecified
CPT/HCPCS: 59025; 76815; 81001; 87081; 87210; G0463

== ENCOUNTER 2021-08-27 11:33 | Outpatient (CLI) | payer OTHER ==
[~2021-08-27] VITALS: Ht 154.9 cm; Wt 68.2 kg
[~2021-08-27 11:33] MED LIST changes: +ALBUTEROL SULFATE 2.5 MG/0.5 ML INH NEB SOLN INH PRN; +EPINEPHrine INJ 1 MG/ML 1ML AMP IM PRN; +IRON SUCROSE 300 MG in NS 250 ML OVER 90 MIN. IV ONE; +NS 1,000 ML IV ONE; +PREN1CHW6 PO; +diphenhydrAMINE 50MG/ML VIAL (J1200) IV PRN; +methylPREDNISolone 125MG 2ML VIAL IV PRN
[2021-08-27 11:35] VITALS: BP 129/75
[2021-08-27 13:00] VITALS: BP 117/74
[2021-08-27 14:40] VITALS: BP 121/71
== END 2021-08-27 14:50 | disposition home or self-care (01) ==
LOC: M INFU 11:33
PROVIDERS: ATTEND Registered Nurse
DX: D50.9 Iron deficiency anemia, unspecified (principal)
CPT/HCPCS: 96365; 96366; J1756

== ENCOUNTER 2021-09-02 07:56 | Outpatient (CLI) | payer OTHER ==
[~2021-09-02] VITALS: Ht 154.9 cm; Wt 69.2 kg
[~2021-09-02 07:56] MED LIST changes: -ALBUTEROL SULFATE 2.5 MG/0.5 ML INH NEB SOLN INH PRN; -EPINEPHrine INJ 1 MG/ML 1ML AMP IM PRN; -IRON SUCROSE 300 MG in NS 250 ML OVER 90 MIN. IV ONE; -NS 1,000 ML IV ONE; -diphenhydrAMINE 50MG/ML VIAL (J1200) IV PRN; -methylPREDNISolone 125MG 2ML VIAL IV PRN
[2021-09-02 08:09] VITALS: BP 115/75
[2021-09-02] MEDS ORDERED: LR 1,000 ML IV ONE (08:25)
[2021-09-02 08:59] LABS: HEMATOCRIT 30.7 % (36.0-47.0); HEMOGLOBIN 9.6 g/dl (12.0-15.5); MEAN CORPUSCULAR HEMOGLOBIN 27.8 pg (27.0-33.0); MEAN CORPUSCULAR HGB CONC 31.3 g/dl (32.0-36.5); PLATELET COUNT, AUTOMATED 310 10^3/uL (150-450); RED BLOOD COUNT 3.45 10^6/uL (4.00-5.40)
== END 2021-09-02 10:57 | disposition home or self-care (01) ==
LOC: M LDO 07:56
PROVIDERS: ATTEND Obstetrics & Gynecology
DX: O9A.213 Injury, poisoning and certain other consequences of external causes complicating pregnancy, third trimester (principal); S20.211A Contusion of right front wall of thorax, initial encounter; Z3A.34 34 weeks gestation of pregnancy; O99.013 Anemia complicating pregnancy, third trimester; D64.9 Anemia, unspecified; W01.0XXA Fall on same level from slipping, tripping and stumbling without subsequent striking against object, initial encounter; Y92.9 Unspecified place or not applicable
CPT/HCPCS: 36415; 59025; 76815; 85027; 85460; G0378; G0463

== ENCOUNTER 2021-09-04 11:32 | Outpatient (CLI) | payer OTHER ==
[~2021-09-04] VITALS: Ht 154.9 cm; Wt 67.8 kg
[~2021-09-04 11:32] MED LIST changes: +IRON SUCROSE 300 MG in NS 250 ML OVER 90 MIN. IV ONE
[2021-09-04 11:41] VITALS: BP 119/66
[2021-09-04 12:30] VITALS: BP 125/72
[2021-09-04 13:23] VITALS: BP 111/62
[2021-09-04 14:41] VITALS: BP 113/70
== END 2021-09-04 14:45 ==
LOC: M INFU 11:32
PROVIDERS: ATTEND Registered Nurse
DX: D50.9 Iron deficiency anemia, unspecified (principal)
CPT/HCPCS: 96365; 96366; J1756

== ENCOUNTER 2021-09-11 11:35 | Outpatient (CLI) | payer OTHER ==
[~2021-09-11] VITALS: Ht 154.9 cm; Wt 68.2 kg
[2021-09-11 11:35] VITALS: BP 122/70
[~2021-09-11 11:35] MED LIST changes: +IRON SUCROSE 300 MG in NS 250 ML IV ONE; -IRON SUCROSE 300 MG in NS 250 ML OVER 90 MIN. IV ONE
[2021-09-11 14:40] VITALS: BP 119/62
== END 2021-09-11 14:40 | disposition home or self-care (01) ==
LOC: M INFU 11:35
PROVIDERS: ATTEND Registered Nurse
DX: D50.9 Iron deficiency anemia, unspecified (principal)
CPT/HCPCS: 96365; 96366; J1756

== ENCOUNTER 2021-09-25 19:37 | Outpatient (CLI) | payer OTHER ==
[~2021-09-25] VITALS: Ht 154.9 cm; Wt 69.8 kg
[~2021-09-25 19:37] MED LIST changes: -IRON SUCROSE 300 MG in NS 250 ML IV ONE
[2021-09-25 19:50] VITALS: BP 123/82
[2021-09-25] MEDS ORDERED: HOME MED LIST COMPLETE! XX SCH (20:00)
[2021-09-25] MEDS ORDERED: NS 1,000 ML IV ONE (20:10)
[2021-09-25] MEDS ORDERED: ONDANSETRON 4MG 2ML VIAL IV ONE (20:10)
[2021-09-25 20:41] LABS: HEMATOCRIT 33.2 % (36.0-47.0); HEMOGLOBIN 10.7 g/dl (12.0-15.5); MEAN CORPUSCULAR HEMOGLOBIN 28.9 pg (27.0-33.0); MEAN CORPUSCULAR HGB CONC 32.2 g/dl (32.0-36.5); MEAN CORPUSCULAR VOLUME 89.7 fl (80.0-96.0); PLATELET COUNT, AUTOMATED 242 10^3/uL (150-450); WHITE BLOOD COUNT 9.8 10^3/uL (4.0-10.0)
[2021-09-25 21:08] LABS: ALT/SGPT 28 U/L (12-78); BILIRUBIN,TOTAL 0.5 MG/DL (0.2-1.0); BLOOD UREA NITROGEN 6 MG/DL (7-18); CALCIUM LEVEL 8.9 MG/DL (8.5-10.1); CARBON DIOXIDE LEVEL 25 MEQ/L (21-32); CHLORIDE LEVEL 108 MEQ/L (98-107); CREATININE FOR GFR 0.77 MG/DL (0.55-1.30); GLOMERULAR FILTRATION RATE > 60.0 (>60); GLUCOSE, FASTING 114 MG/DL (70-100); POTASSIUM SERUM 3.9 MEQ/L (3.5-5.1); SODIUM LEVEL 139 MEQ/L (136-145); TOTAL PROTEIN 6.3 GM/DL (6.4-8.2)
[2021-09-25] MEDS ORDERED: LR 1,000 ML IV SCH (21:40)
[2021-09-25] MEDS ORDERED: METOCLOPRAMIDE INJ 10MG/2ML VIAL (J2765 PER 1) IV ONE (21:40)
[2021-09-25 22:38] LABS: APPEARANCE, URINE CLEAR (CLEAR); BACTERIA, URINE AUTO NEGATIVE (NEGATIVE); BILIRUBIN, URINE AUTO NEGATIVE (NEGATIVE); BLOOD, URINE BLOOD NEGATIVE (NEGATIVE); COLOR, URINE STRAW (YELLOW); GLUCOSE, URINE (UA) AUTO NEGATIVE (NEGATIVE); KETONE, URINE AUTO NEGATIVE (NEGATIVE); LEUKOCYTE ESTERASE, URINE AUTO NEGATIVE (NEGATIVE); NITRITE, URINE AUTO NEGATIVE (NEGATIVE); PROTEIN, URINE AUTO NEGATIVE (NEGATIVE); RBC, URINE AUTO 0 /HPF (0-3); SPECIFIC GRAVITY URINE AUTO 1.002 (1.002-1.035); SQUAMOUS EPITHELIAL CELL UR AU 0 /HPF (0-6); UROBILINOGEN, URINE AUTO 0.2 mg/dL (0.0-2.0); WBC, URINE AUTO 0 /HPF (0-3)
[2021-09-26] MEDS ORDERED: ONDANSETRON 4MG 2ML VIAL IV SCH (00:15)
== END 2021-09-25 23:04 | disposition home or self-care (01) ==
LOC: M LDO 19:37
PROVIDERS: ATTEND Obstetrics & Gynecology
DX: O26.893 Other specified pregnancy related conditions, third trimester (principal); M54.50 Low back pain, unspecified; Z3A.37 37 weeks gestation of pregnancy; G43.909 Migraine, unspecified, not intractable, without status migrainosus; O99.013 Anemia complicating pregnancy, third trimester; O99.283 Endocrine, nutritional and metabolic diseases complicating pregnancy, third trimester; E86.0 Dehydration; O99.353 Diseases of the nervous system complicating pregnancy, third trimester
CPT/HCPCS: 59025; 80053; 81001; 85027; 96360; G0463; J2405; J2765

== ENCOUNTER 2021-10-14 07:08 | Inpatient (IN) | payer OTHER ==
[2021-10-14] VITALS (48 sets, daily range): BP systolic 131–177; BP diastolic 68–113
[~2021-10-14] VITALS: Ht 154.9 cm; Wt 71.6 kg
[2021-10-14] MEDS ORDERED: HOME MED LIST COMPLETE! XX SCH (07:30)
[2021-10-14] MEDS ORDERED: PENICILLIN G POTASSIUM IV 5 MU in D5W MINI-BAG PLUS 100 ML IV STA (08:01)
[2021-10-14] MEDS ORDERED: LIDOCAINE 1% MDV 20ML VIAL INFIL PRN (08:05)
[2021-10-14] MEDS ORDERED: METHYLERGONOVINE MALEATE 0.2 MG/ML VIAL (J2210) IM PRN (08:05)
[2021-10-14] MEDS ORDERED: TRANEXAMIC ACID INJection 1,000 MG in NS 100 ML IV PRN (08:05)
[2021-10-14] MEDS ORDERED: OXYTOCIN INJ 10 UNITS/ML VIAL (J2590) IV PRN (08:05)
[2021-10-14] MEDS ORDERED: OXYTOCIN INJ 10 UNITS/ML VIAL (J2590) IM PRN (08:05)
[2021-10-14] MEDS ORDERED: OXYTOCIN DRIP 30 UNITS in IV 1 EA IV PRN (08:05)
[2021-10-14 09:27] LABS: HEMATOCRIT 37.2 % (36.0-47.0); MEAN CORPUSCULAR HEMOGLOBIN 29.1 pg (27.0-33.0); MEAN CORPUSCULAR HGB CONC 32.3 g/dl (32.0-36.5); MEAN CORPUSCULAR VOLUME 90.3 fl (80.0-96.0); PLATELET COUNT, AUTOMATED 273 10^3/uL (150-450); RED BLOOD COUNT 4.12 10^6/uL (4.00-5.40); WHITE BLOOD COUNT 9.5 10^3/uL (4.0-10.0)
[2021-10-14] MEDS: LR 1,000 ML IV SCH ×3 (09:32→23:24)
[2021-10-14 09:59] LABS: ALT/SGPT 20 U/L (12-78); BILIRUBIN,TOTAL 0.2 MG/DL (0.2-1.0); CREATININE FOR GFR 0.76 MG/DL (0.55-1.30); GLOMERULAR FILTRATION RATE > 60.0 (>60); LDH LACTATE DEHYDROGENASE 229 U/L (84-246); URIC ACID 4.2 MG/DL (2.6-6.0)
[2021-10-14] MEDS ORDERED: OXYTOCIN DRIP 30 UNITS in IV 1 EA IV SCH (10:15)
[2021-10-14 11:07] LABS: CREATININE,RANDOM URINE 30.2 MG/DL; TOTAL PROTEIN,RANDOM URINE 21.1 MG/DL (0.0-12.0)
[2021-10-14] MEDS ORDERED: FENTANYL 2MCG/ML ROPIVACAINE 0.2% IN 0.9% NACL 100ML IVBAG As Ordered ONE (12:38)
[2021-10-14] MEDS ORDERED: NALOXONE INJ 0.4MG/1ML VIAL (J2310 PER 1MG) IV PRN (13:25)
[2021-10-14] MEDS ORDERED: diphenhydrAMINE 50MG/ML VIAL (J1200) IV PRN (13:25)
[2021-10-14] MEDS ORDERED: LR 500 ML IV PRN (13:25)
[2021-10-14] MEDS ORDERED: ePHEDrine SULFATE 25 MG/5 ML(5MG/ML) SYRINGE IVP PRN (13:25)
[2021-10-14] MEDS ORDERED: EPIDURAL/PCA KEYS XX PRN (13:25)
[2021-10-14] MEDS ORDERED: ONDANSETRON 4MG 2ML VIAL IV PRN (13:25)
[2021-10-14] MEDS: PENICILLIN G POTASSIUM IV 2.5 MU in IV 1 EA IV SCH ×2 (14:44→17:43)
[2021-10-14] MEDS: FENTANYL/ROPIVACAINE/NACL BAG 100 ML EPIDURAL SCH ×2 (14:48→20:53)
[2021-10-14] MEDS ORDERED: LABETALOL 100MG/20ML VIAL IV STA (18:23)
[2021-10-14] MEDS ORDERED: MAGNESIUM *L&D* 4GM/100ML BAG (40MG/ML) IV ONE (18:25)
[2021-10-14] MEDS ORDERED: LABETALOL 100MG/20ML VIAL As Ordered ONE (18:25)
[2021-10-14] MEDS: MAG Sulf (OBGYN) 20GM/500ML 20,000 MG in IV 1 EA IV SCH (18:39)
[2021-10-14] MEDS: CARBOPROST TROMETHAMINE 250 MCG/ML AMP IM PRN ×2 (21:46→21:57)
[2021-10-14] MEDS ORDERED: OXYTOCIN 30 UNITS IN 0.9% NaCl 500ML IV BAG (J2590) As Ordered ONE (22:10)
[2021-10-14 22:15] LABS: CORD GAS ABE A -12.3; CORD GAS ABE V -9.7; CORD GAS HCO3 A 16.8 MEQ/L; CORD GAS HCO3 V 17.2 MEQ/L; CORD GAS O2 SAT A 79.2 %; CORD GAS O2 SAT V 84.9 %; CORD GAS PCO2 A 49.8 mmHg; CORD GAS PCO2 V 40.9 mmHg; CORD GAS PH A 7.145 UNITS; CORD GAS PH V 7.241 UNITS; CORD GAS PO2 V 45.2 mmHg; CORD GAS SBC A 14.8 MEQ/L; CORD GAS SBC V 16.7 MEQ/L; CORD GAS TCO2 A 18.3 MEQ/L; CORD GAS TCO2 V 18.4 MEQ/L
[2021-10-14] MEDS ORDERED: LABETALOL 100MG/20ML VIAL IV ONE (22:20)
[2021-10-14] MEDS ORDERED: MOM 30ML SUSPENSION UDC PO PRN (22:20)
[2021-10-14] MEDS ORDERED: lamoTRIgine 25MG TAB PO ONE (22:20)
[2021-10-15] VITALS (37 sets, daily range): BP systolic 107–170; BP diastolic 52–102
[2021-10-15] MEDS: MAG Sulf (OBGYN) 20GM/500ML 20,000 MG in IV 1 EA IV SCH ×2 (05:03→13:48)
[2021-10-15] MEDS: IBUPROFEN 800 MG TAB PO PRN ×3 (05:19→13:47)
[2021-10-15] MEDS: FENTANYL/ROPIVACAINE/NACL BAG 100 ML EPIDURAL SCH (10:32)
[2021-10-15] MEDS: DOCUSATE SODIUM 100MG CAPSULE PO SCH ×2 (10:35→21:24)
[2021-10-15] MEDS: ACETAMINOPHEN 500 MG TAB PO PRN (10:35)
[2021-10-15] MEDS: LR 1,000 ML IV SCH (13:48)
[2021-10-15] MEDS ORDERED: LABETALOL 100MG/20ML VIAL IV ONE (15:15)
[2021-10-15] MEDS ORDERED: LABETALOL 200 MG TAB PO SCH (18:00)
[2021-10-15 19:44] LABS: HEMATOCRIT 28.8 % (36.0-47.0); MEAN CORPUSCULAR HEMOGLOBIN 29.5 pg (27.0-33.0); MEAN CORPUSCULAR HGB CONC 32.6 g/dl (32.0-36.5); MEAN CORPUSCULAR VOLUME 90.3 fl (80.0-96.0); PLATELET COUNT, AUTOMATED 238 10^3/uL (150-450); RED BLOOD COUNT 3.19 10^6/uL (4.00-5.40); WHITE BLOOD COUNT 15.9 10^3/uL (4.0-10.0)
[2021-10-15 19:49] LABS: HEMOGLOBIN 9.4 g/dl (12.0-15.5)
[2021-10-15] MEDS: LABETALOL 200 MG TAB PO SCH (21:24)
[2021-10-16 02:00] VITALS: BP 116/63
[2021-10-16 06:00] VITALS: BP 116/63
[2021-10-16 06:51] LABS: HEMATOCRIT 25.5 % (36.0-47.0); HEMOGLOBIN 8.2 g/dl (12.0-15.5); MEAN CORPUSCULAR HEMOGLOBIN 29.2 pg (27.0-33.0); MEAN CORPUSCULAR HGB CONC 32.2 g/dl (32.0-36.5); MEAN CORPUSCULAR VOLUME 90.7 fl (80.0-96.0); PLATELET COUNT, AUTOMATED 213 10^3/uL (150-450); RED BLOOD COUNT 2.81 10^6/uL (4.00-5.40); WHITE BLOOD COUNT 12.1 10^3/uL (4.0-10.0)
[2021-10-16] MEDS: PRENATAL VITAMINS CHEWABLE TABLET PO SCH (09:29)
[2021-10-16] MEDS: LABETALOL 200 MG TAB PO SCH ×2 (09:29→20:53)
[2021-10-16] MEDS: DOCUSATE SODIUM 100MG CAPSULE PO SCH ×2 (09:30→20:46)
[2021-10-16 10:00] VITALS: BP 138/73
[2021-10-16 14:00] VITALS: BP 128/79
[2021-10-16 18:00] VITALS: BP 141/75
[2021-10-16] MEDS ORDERED: ANUSOL HC CREAM 30GM TOP PRN (20:05)
[2021-10-16 22:00] VITALS: BP 117/59
[2021-10-17 02:00] VITALS: BP 141/83
[2021-10-17] MEDS: ACETAMINOPHEN 500 MG TAB PO PRN (05:16)
[2021-10-17] MEDS ORDERED: PROC1CRE5 TOP (05:49)
[2021-10-17] MEDS ORDERED: LABE20TAB PO (05:49)
[2021-10-17] MEDS ORDERED: IBUP80TA PO (05:49)
[2021-10-17] MEDS ORDERED: ACET-683 PO (05:49)
[2021-10-17] MEDS ORDERED: COLA100C5 PO (05:49)
[2021-10-17 06:00] VITALS: BP 143/87
[2021-10-17] MEDS: DOCUSATE SODIUM 100MG CAPSULE PO SCH (08:03)
[2021-10-17 08:04] VITALS: BP 159/84
[2021-10-17] MEDS: LABETALOL 200 MG TAB PO SCH (08:04)
[2021-10-17] MEDS: PRENATAL VITAMINS CHEWABLE TABLET PO SCH (08:04)
[2021-10-17 10:00] VITALS: BP 134/82
== END 2021-10-17 12:18 | disposition home or self-care (01) | DRG 807 ==
LOC: M LDO 07:08 → M LDI 08:02 → M OBS 10-16 01:03
PROVIDERS: ADMIT Obstetrics & Gynecology; ATTEND Obstetrics & Gynecology
PROC: 10E0XZZ Delivery of Products of Conception, External Approach (ICD-10-PCS; principal; 2021-10-14)
PROC: 0KQM0ZZ Repair Perineum Muscle, Open Approach (ICD-10-PCS; 2021-10-14)
DX: O14.14 Severe pre-eclampsia complicating childbirth (principal); Z37.0 Single live birth; D64.9 Anemia, unspecified; O99.824 Streptococcus B carrier state complicating childbirth; Z3A.39 39 weeks gestation of pregnancy; O69.81X0 Labor and delivery complicated by cord around neck, without compression, not applicable or unspecified; O99.02 Anemia complicating childbirth; O70.1 Second degree perineal laceration during delivery; O75.89 Other specified complications of labor and delivery

== ENCOUNTER 2022-05-11 10:24 | Emergency (ER) | payer MEDICAID, OTHER ==
[~2022-05-11] VITALS: Ht 154.9 cm; Wt 61.2 kg
[~2022-05-11 10:24] MED LIST changes: +ACET-683 PO; +COLA100C5 PO; +LABE20TAB PO; +PROC1CRE5 TOP
[2022-05-11] MEDS ORDERED: IBUPROFEN 800 MG TAB PO ONE (11:05)
[2022-05-11] MEDS ORDERED: ACET-897 PO (12:21)
[2022-05-11] MEDS ORDERED: IBUP80TA PO (12:21)
[2022-05-11 12:29] VITALS: BP 119/70
[2022-05-11 12:49] LABS: HCG, SERUM QUALITATIVE NEGATIVE (NEGATIVE)
[2022-05-11 13:00] LABS: GC DNA AMPLIFICATION NEGATIVE (NEGATIVE)
== END 2022-05-11 12:31 | disposition home or self-care (01) ==
LOC: M ED 10:24
DX: R10.2 Pelvic and perineal pain (principal); K59.00 Constipation, unspecified

== ENCOUNTER 2022-08-15 07:35 | Emergency (ER) | payer MEDICAID, OTHER ==
[~2022-08-15] VITALS: Ht 154.9 cm; Wt 61.0 kg
[~2022-08-15 07:35] MED LIST changes: +ACET-897 PO
[2022-08-15 08:31] LABS: BASO % 0.7 % (0.0-1.0); EOS # 0.2 10^3/uL (0.0-0.5); EOS % 3.1 % (0.0-3.0); HEMATOCRIT 36.4 % (36.0-47.0); HEMOGLOBIN 11.7 g/dl (12.0-15.5); LYMPH # 2.3 10^3/uL (1.5-5.0); LYMPH % 38.4 % (24.0-44.0); MEAN CORPUSCULAR HEMOGLOBIN 28.6 pg (27.0-33.0); MEAN CORPUSCULAR HGB CONC 32.1 g/dl (32.0-36.5); MONO # 0.4 10^3/uL (0.0-0.8); MONO % 7.3 % (2.0-8.0); NEUTROPHILS % 50.3 % (36.0-66.0); PLATELET COUNT, AUTOMATED 349 10^3/uL (150-450); RED BLOOD COUNT 4.09 10^6/uL (4.00-5.40); WHITE BLOOD COUNT 5.9 10^3/uL (4.0-10.0)
[2022-08-15] MEDS ORDERED: NS 1,000 ML IV ONE (08:35)
[2022-08-15] MEDS ORDERED: KETOROLAC 30 MG/ML 1ML VIAL IV ONE (08:35)
[2022-08-15 08:53] LABS: ALBUMIN 4.2 G/DL (3.2-5.2); ALKALINE PHOSPHATASE 66 U/L (46-116); ALT/SGPT 19 U/L (7.0-40); AST/SGOT 13 U/L (<34); BILIRUBIN,TOTAL 0.3 MG/DL (0.3-1.2); BLOOD UREA NITROGEN 10 MG/DL (9-23); CALCIUM LEVEL 8.7 MG/DL (8.5-10.1); CARBON DIOXIDE LEVEL 25 MMOL/L (20-31); CHLORIDE LEVEL 106 MMOL/L (98-107); CREATININE FOR GFR 0.63 MG/DL (0.55-1.30); GLOMERULAR FILTRATION RATE > 60.0 (>60); GLUCOSE, FASTING 95 MG/DL (60-100); POTASSIUM SERUM 4.4 MMOL/L (3.5-5.1); SODIUM LEVEL 136 MMOL/L (136-145); TOTAL PROTEIN 7.3 G/DL (5.7-8.2)
[2022-08-15] MEDS ORDERED: ISOVUE-370 76% 100ML VIAL As Ordered ONE (08:57)
[2022-08-15 09:08] LABS: APPEARANCE, URINE HAZY (CLEAR); BACTERIA, URINE AUTO NEGATIVE (NEGATIVE); BILIRUBIN, URINE AUTO NEGATIVE (NEGATIVE); BLOOD, URINE BLOOD 2+ (NEGATIVE); COLOR, URINE YELLOW (YELLOW); GLUCOSE, URINE (UA) AUTO NEGATIVE (NEGATIVE); KETONE, URINE AUTO NEGATIVE (NEGATIVE); LEUKOCYTE ESTERASE, URINE AUTO NEGATIVE (NEGATIVE); MUCUS, URINE SMALL (NEGATIVE); NITRITE, URINE AUTO NEGATIVE (NEGATIVE); PROTEIN, URINE AUTO NEGATIVE (NEGATIVE); RBC, URINE AUTO 1 /HPF (0-3); SPECIFIC GRAVITY URINE AUTO 1.012 (1.002-1.035); SQUAMOUS EPITHELIAL CELL UR AU 1 /HPF (0-6); UROBILINOGEN, URINE AUTO 0.2 mg/dL (0.0-2.0); WBC, URINE AUTO 0 /HPF (0-3)
[2022-08-15 10:32] VITALS: BP 118/74; TEMP 97; O2SAT 100
== END 2022-08-15 10:36 | disposition home or self-care (01) ==
LOC: M ED 07:35
DX: R10.9 Unspecified abdominal pain (principal); D25.9 Leiomyoma of uterus, unspecified; N83.209 Unspecified ovarian cyst, unspecified side; R51.9 Headache, unspecified; Z87.440 Personal history of urinary (tract) infections
CPT/HCPCS: 74176; 80053; 81001; 84702; 85025; 96374; 99283; J1885